=== PATIENT | male | born 1985 | race Caucasian/White ===

== ENCOUNTER 2017-02-02 13:54 | Emergency (ER) | payer MEDICARE, MEDICAID ==
[2017-02-02 14:43] VITALS: BP 133/84
--- NOTE | 2017-02-02 23:33 | ER ---
DATE SEEN: 02/02/2017 TIME SEEN: 1400 hours. CHIEF COMPLAINT: Chest pain. HISTORY OF PRESENT ILLNESS: This is a 31-year-old male with recurrent chest pain, has been seen in the ER multiple times for more than a year now. Pain is on the left side, moderate to severe. He had some shortness of breath and cough. REVIEW OF SYSTEMS: Complains of tremors, has problems sleeping. He feels like he is falling apart. No fever or chills. PAST MEDICAL HISTORY: Bipolar disorder, anxiety, depression, chronic chest pain. SOCIAL HISTORY: Does not smoke. PHYSICAL EXAMINATION: VITAL SIGNS: Blood pressure is normal. Temperature 97.5. GENERAL: He is not in any cardiopulmonary distress. ENT: Negative. Head normal size. CHEST: Clear. CARDIOVASCULAR: Normal. Neurologic: No focal findings. MENTAL STATUS: Lacks insight but normal intelligence and memory. No signs of dedrick or psychosis. Slightly anxious and tremulous. LABORATORY DATA: CBC, D-dimer, troponin normal. EKG negative. Chest x-ray was normal. IMPRESSION: Atypical chest pain. PLAN: Discharge home, reassurance, and advised to see Natasha Crawford at the [facility] on Saturday. Return to the ED with any worsening symptoms. /[id number] ALLISON/CHEN
--- NOTE | 2017-02-04 10:50 | CR ---
INDICATION: Chest pain. CHEST: PA and lateral views of the chest 02/02/2017, compared with 07/29/2016 and 05/26/2016, revealed no significant interval change - no definite active disease. The heart remains normal in size and shape. MTDD
== END 2017-02-02 15:03 | disposition home or self-care (01) ==
LOC: FB.ED 13:54
DX: R07.89 Other chest pain (principal); F41.9 Anxiety disorder, unspecified; F32.9 Major depressive disorder, single episode, unspecified
CPT/HCPCS: 36415; 71020; 80053; 84484; 85025; 85379; 93005; 99284; 99285

== ENCOUNTER 2017-02-07 23:33 | Emergency (ER) | payer MEDICARE, MEDICAID ==
[2017-02-07 23:45] VITALS: BP 121/77
--- NOTE | 2017-02-08 01:47 | ER ---
DATE SEEN: 02/07/2017 CHIEF COMPLAINT: "I am not feeling well." HISTORY OF PRESENT ILLNESS: This is a 31-year-old male with multiple complaints of vague, they include chest pain, difficulty breathing, tingling of the hand, symptoms have lasted two years. I saw him two days ago with the same symptoms. Nothing is new tonight. He has been unable to sleep. He was given Xanax yesterday, it does not seem to help. He is on prednisone, which has not helped. He has had multiple workup including x-rays, CAT scans, and even stress test. CURRENT MEDICATIONS: Please see the electronic record. REVIEW OF SYSTEMS: He complains of erectile dysfunction. He has no fever or chills. Denies any suicidal ideation. SOCIAL HISTORY: He is a smoker. Denies use of drugs. PHYSICAL EXAMINATION: GENERAL: He is nontoxic. He is afebrile. Normotensive. MENTAL STATUS: Very talkative. Elated mood. Lacks insight and judgment. Memory appears to be intact. Decreased fund of knowledge. No signs of psychosis or delusions. He appears somewhat manic. IMPRESSION: Bipolar disorder. PLAN: No treatment today, reassurance was attempted. The patient was unable to be reassured, he still believes that he has had heart attack, despite multiple workups. He was discharged home to follow up with his PCP. TIME SEEN: 2230 hours. /[id number] ALLISON/CHEN
== END 2017-02-08 | disposition home or self-care (01) ==
LOC: FB.ED 23:33
DX: F31.9 Bipolar disorder, unspecified (principal); Z87.891 Personal history of nicotine dependence
CPT/HCPCS: 99283; 99284

== ENCOUNTER 2017-02-14 05:53 | Emergency (ER) | payer MEDICARE, MEDICAID ==
--- NOTE | 2017-02-14 06:04 | EDM.PDOC ---
ED HISTORY OF PRESENT ILLNESS - General Chief Complaint: Cardiovascular Problem Stated Complaint: CHEST PAIN Time Seen by Provider: 02/14/17 05:53 Source: Reports: Patient, EMS History Limitations: Reports: No limitations - History of Present Illness INITIAL COMMENTS - FREE TEXT/NARRATIVE: Pt stated his puls is 140 when he is walking. He called 911 and requested to be transported to the ed. On arrival, pt was in his usual state of health. Vitals were nl. Pt was ambulating fine. He had no medical issues. Symptom Onset Date: 02/14/17 Symptom Onset Time: 05:30 Timing/Duration: Reports: Minutes: Severity: mild Improves with: Reports: None Worsens with: Reports: None Associated Symptoms: Reports: denies other symptoms - Related Data Allergies/ADRs: Allergies Allergy/AdvReac Type Severity Reaction Status Date / Time acetaminophen [From Lortab] Allergy Airway Verified 02/14/17 06:09 Tightness doxycycline Allergy Blisters Verified 02/14/17 06:09 hydrocodone bitartrate Allergy Difficulty Verified 02/14/17 06:09 [From Vicodin] Breathing Home Meds: Home Meds Divalproex Sodium [Depakote] 500 mg PO BID 02/02/17 [History] Fluticasone Furoate [Flonase Sensimist] 2 sprays IH DAILY 02/02/17 [History] Sulindac 200 mg PO BID 02/02/17 [History] Past Medical History - Past Health History Medical/Surgical History: Denies Medical/Surgical History HEENT History: Reports: Impaired vision Other HEENT History: wears glasses Cardiovascular History: Reports: Other (see below) Other Cardiovascular History: Episodes of feeling heart irregularities and chest tightness. Respiratory History: Reports: Other (see below) Other Respiratory History: black mold Gastrointestinal History: Reports: GERD Other Gastrointestinal History: acid reflux Neurological History: Reports: Concussion, Migraines Psychiatric History: Reports: Aggressive/hostile behaviors, Antisocial behaviors , Anxiety, Bipolar, Depression, Learning disability, Mood swings, Psych Hospitalization(s), Suicide attempt, Suicidal ideation, Other (see below) Other Psychiatric History: alcohol syndrome Endocrine/Metabolic History: Reports: Hypothyroidism Other Endocrine/Metabolic History: Pt stated he is borderline diabetic Dermatologic History: Reports: Psoriasis - Infectious Disease History Infectious Disease History: Reports: Chicken pox - Past Surgical History Other Cardiovascular Surgeries/Procedures: PT STATED HE UNDERGONE CARDIAC STENTING Social & Family History - Family History Family Medical History: Noncontributory Cardiac: Reports: Angina, Hypertension, [place] Other Cardiac Family History: Father at 42 due to heart related issues. aunts and uncles have a history of cardiac issues Respiratory: Reports: Other (see below) Other Respiratory Family Hisory: lung ca - Tobacco Use Smoking Status *Q: Current Every Day Smoker Years of Tobacco use: 2 Packs/Tins Daily: 0.5 Used Tobacco, but Quit: Yes Month Tobacco Last Used: April Second Hand Smoke Exposure: Yes - Caffeine Use Caffeine Use: Reports: Coffee - Alcohol Use Days Per Week of Alcohol Use: 1 Number of Drinks Per Day: 4 Total Drinks Per Week: 4 - Recreational Drug Use Recreational Drug Use: No Drug Use in Last 12 Months: Yes Recreational Drug Type: Reports: Marijuana/Hashish Recreational Drug Use Frequency: Weekly - Living Situation & Occupation Living situation: Reports: single ED ROS GENERAL - Review of Systems Review Of Systems: See Below Constitutional: Reports: no symptoms HEENT: Reports: No symptoms Respiratory: Reports: No Symptoms Cardiovascular: Reports: No symptoms Endocrine: Reports: no symptoms GI/Abdominal: Reports: No symptoms : Reports: no symptoms Musculoskeletal: Reports: no symptoms Skin: Reports: no symptoms Neurological: Reports: No Symptoms Psychiatric: Reports: No symptoms Hematologic/Lymphatic: Reports: no symptoms Immunologic: Reports: no symptoms ED EXAM, GENERAL - Physical Exam Exam: See Below Exam Limited By: No limitations General Appearance: alert, WD/WN, no apparent distress Eye Exam: bilateral eye: normal inspection Ears: normal external exam Ear Exam: bilateral ear: auricle normal Nose: normal inspection, normal mucosa, no blood Throat/Mouth: Normal inspection, Normal lips, Normal oropharynx, Normal voice Head: atraumatic, normocephalic Neck: normal inspection, supple, non-tender, full range of motion Respiratory/Chest: no respiratory distress, lungs clear, normal breath sounds, no accessory muscle use, chest non-tender Cardiovascular: normal peripheral pulses, regular rate, rhythm, no edema, no gallop, no JVD Peripheral Pulses: 2+: femoral (L), femoral (R) GI/Abdominal: normal bowel sounds, soft, non tender, no organomegaly, no distention, no abnormal bruit (Male) Exam: Deferred Rectal (Males) Exam: Deferred Back Exam: normal inspection, full range of motion Extremities: normal inspection, normal range of motion, non-tender, no pedal edema Neurological: alert, oriented, CN II-XII intact, normal cognition, normal gait Psychiatric: normal affect, normal mood Skin Exam: Warm Lymphatic: no adenopathy EKG INTERPRETATION EKG Date: 02/14/17 Time: 05:30 Rhythm: NSR Rate (beats/min): 86 [place]: normal P-wave: present QRS: normal ST-T: normal QT: normal Comparison: NA - no prior EKG Course - Vital Signs Text/Narrative:: Pt stated his puls is 140 when he is walking. He called 911 and requested to be transported to the ed. On arrival, pt was in his usual state of health. Vitals were nl. Pt was ambulating fine. He had no medical issues. PE: Nl PE ECG: NSR see note above Impression: Well exam Plan: Home with instruction Last Recorded V/S: Last Vital Signs Temp 36.3 C 02/14/17 06:04 Pulse 72 02/14/17 06:04 Resp 20 02/14/17 06:04 BP 160/105 H 02/14/17 06:04 Pulse Ox 100 02/14/17 06:04 - Orders/Labs/Meds Orders: Active Orders 24 hr Category Date Time Status EKG Documentation Completion [RC] ASDIRECTED Care 02/14/17 06:02 Active EKG 12 Lead [EK] Routine Ther 02/14/17 06:01 Ordered Departure - Departure Time of Disposition: 06:06 Disposition: Home, Self-Care 01 Condition: good Clinical Impression: Normal sinus rhythm Referrals: Natasha Crawford J[employer] COACH/JOB DEVELOPER [Primary Care Provider] - Forms: ED Department Discharge Additional Instructions: Please f/u with your Doctor - My Orders Last 24 Hours: My Active Orders 02/14/17 06:01 EKG 12 Lead [EK] Routine 02/14/17 06:02 EKG Documentation Completion [RC] ASDIRECTED - Assessment/Plan Last 24 Hours: My Active Orders 02/14/17 06:01 EKG 12 Lead [EK] Routine 02/14/17 06:02 EKG Documentation Completion [RC] ASDIRECTED
[2017-02-14 06:07] VITALS: BP 160/105
== END 2017-02-14 06:15 | disposition home or self-care (01) ==
LOC: FB.ED 05:53
DX: Z71.1 Person with feared health complaint in whom no diagnosis is made (principal); K21.9 Gastro-esophageal reflux disease without esophagitis; F41.9 Anxiety disorder, unspecified; F32.9 Major depressive disorder, single episode, unspecified; F17.210 Nicotine dependence, cigarettes, uncomplicated; E03.9 Hypothyroidism, unspecified; Z79.899 Other long term (current) drug therapy; Z88.6 Allergy status to analgesic agent; Z88.8 Allergy status to other drugs, medicaments and biological substances
CPT/HCPCS: 93005; 99283; 99285

== ENCOUNTER 2017-03-09 04:35 | Emergency (ER) | payer MEDICARE, MEDICAID ==
[2017-03-09 04:44] VITALS: BP 156/72
--- NOTE | 2017-03-09 05:04 | EDM.PDOC ---
ED HPI GENERAL MEDICAL PROBLEM - General Chief Complaint: General Stated Complaint: GENERAL Time Seen by Provider: 03/09/17 04:59 Source of Information: Reports: Patient History Limitations: Reports: No Limitations - History of Present Illness INITIAL COMMENTS - FREE TEXT/NARRATIVE: c/o red eye pt told RN that he woke up and his eye was red, no trauma, no itching however, then he said this chest has been hurting for a year he has been seen multiple times in ED for CP, referred to CV and pulmonary and not kept those appointments when I asked him why he was here he hit himself in the chest and said "it hurts right here" when I asked him about his eye several times, he changed the topic each time he has a h/o chronic anxiety and bipolar denies street drugs last saw PCP Pam 2w ago - Related Data Allergies Allergy/AdvReac Type Severity Reaction Status Date / Time acetaminophen [From Lortab] Allergy Airway Verified 02/14/17 06:09 Tightness doxycycline Allergy Blisters Verified 02/14/17 06:09 hydrocodone bitartrate Allergy Difficulty Verified 02/14/17 06:09 [From Vicodin] Breathing Home Meds: Home Meds Divalproex Sodium [Depakote] 500 mg PO BID 02/02/17 [History] Fluticasone Furoate [Flonase Sensimist] 2 sprays IH DAILY 02/02/17 [History] Sulindac 200 mg PO BID 02/02/17 [History] Past Medical History - Past Health History Medical/Surgical History: Denies Medical/Surgical History HEENT History: Reports: Impaired Vision Other HEENT History: wears glasses Cardiovascular History: Reports: Other (See Below) Other Cardiovascular History: Episodes of feeling heart irregularities and chest tightness. Respiratory History: Reports: Other (See Below) Other Respiratory History: black mold Gastrointestinal History: Reports: GERD Other Gastrointestinal History: acid reflux Neurological History: Reports: Concussion, Migraines Psychiatric History: Reports: Aggressive/Hostile Behaviors, Antisocial Behaviors , Anxiety, Bipolar, Depression, Learning Disability, Mood Swings, Psych Hospitalization(s), Suicide Attempt, Suicidal Ideation, Other (See Below) Other Psychiatric History: alcohol syndrome Endocrine/Metabolic History: Reports: Hypothyroidism Other Endocrine/Metabolic History: Pt stated he is borderline diabetic Dermatologic History: Reports: Psoriasis - Infectious Disease History Infectious Disease History: Reports: Chicken Pox - Past Surgical History Other Cardiovascular Surgeries/Procedures: PT STATED HE UNDERGONE CARDIAC STENTING Social & Family History - Family History Family Medical History: Noncontributory Cardiac: Reports: Angina, Hypertension, [place] Other Cardiac Family History: Father at 42 due to heart related issues. aunts and uncles have a history of cardiac issues Respiratory: Reports: Other (See Below) Other Respiratory Family Hisory: lung ca - Tobacco Use Smoking Status *Q: Current Every Day Smoker Years of Tobacco use: 2 Packs/Tins Daily: 0.5 Used Tobacco, but Quit: Yes Month Tobacco Last Used: April Second Hand Smoke Exposure: Yes - Caffeine Use Caffeine Use: Reports: Coffee - Alcohol Use Days Per Week of Alcohol Use: 1 Number of Drinks Per Day: 4 Total Drinks Per Week: 4 - Recreational Drug Use Recreational Drug Use: No Drug Use in Last 12 Months: Yes Recreational Drug Type: Reports: Marijuana/Hashish Recreational Drug Use Frequency: Weekly - Living Situation & Occupation Living situation: Reports: Single ED ROS GENERAL - Review of Systems Review Of Systems: See Below Constitutional: Reports: No Symptoms HEENT: Reports: Other (red eye) Respiratory: Reports: No Symptoms Cardiovascular: Reports: Chest Pain Endocrine: Reports: No Symptoms GI/Abdominal: Reports: No Symptoms : Reports: No Symptoms Musculoskeletal: Reports: No Symptoms Skin: Reports: No Symptoms Neurological: Reports: No Symptoms Psychiatric: Reports: No Symptoms Hematologic/Lymphatic: Reports: No Symptoms Immunologic: Reports: No Symptoms ED EXAM, GENERAL - Physical Exam Exam: See Below Exam Limited By: No Limitations General Appearance: Alert, WD/WN, No Apparent Distress Ears: Other (mild injection b/l, no exudate, no swell, symmetric) Nose: Other (30% swell b/l) Throat/Mouth: Normal Inspection Head: Atraumatic, Normocephalic Neck: Normal Inspection, Supple, Non-Tender, Full Range of Motion Respiratory/Chest: No Respiratory Distress, Lungs Clear, Normal Breath Sounds, Chest Non-Tender Cardiovascular: Regular Rate, Rhythm, No Edema, No Gallop, No JVD, No Murmur, No Rub Back Exam: Normal Inspection, Full Range of Motion, NT Extremities: Normal Inspection, Normal Range of Motion, No Pedal Edema Neurological: Alert, Oriented, CN II-XII Intact, Normal Cognition, No Motor/ Sensory Deficits Psychiatric: Anxious, Other (no flight of ideas, no delusions, no SI/HI) Skin Exam: Warm, Dry, Intact, Normal Color, No Rash Lymphatic: No Adenopathy Course - Vital Signs Last Recorded V/S: Last Vital Signs Temp 36.8 C 03/09/17 04:35 Pulse 84 03/09/17 04:35 Resp 20 03/09/17 04:35 BP 156/72 H 03/09/17 04:35 Pulse Ox - Orders/Labs/Meds Orders: Active Orders 24 hr Category Date Time Status EKG Documentation Completion [RC] ASDIRECTED Care 03/09/17 04:58 Ordered EKG 12 Lead [EK] Routine Ther 03/09/17 04:58 Ordered - Re-Assessments/Exams Free Text/Narrative Re-Assessment/Exam: 03/09/17 05:05 EKG obtained, wnl Departure - Departure Time of Disposition: 05:04 Disposition: Home, Self-Care 01 Preliminary Cause of *Q: Cardiac arrest Condition: good Clinical Impression: Anxiety - Discharge Information Instructions: Panic Attacks Forms: ED Department Discharge Additional Instructions: Continue your current meds. Eat 3 meals a day. Get regular rest. Get exercise daily. See your doctor in 2 days. - My Orders Last 24 Hours: My Active Orders 03/09/17 04:58 EKG Documentation Completion [RC] ASDIRECTED EKG 12 Lead [EK] Routine - Assessment/Plan Last 24 Hours: My Active Orders 03/09/17 04:58 EKG Documentation Completion [RC] ASDIRECTED EKG 12 Lead [EK] Routine
== END 2017-03-09 05:15 | disposition home or self-care (01) ==
LOC: FB.ED 04:35
DX: F41.9 Anxiety disorder, unspecified (principal); K21.9 Gastro-esophageal reflux disease without esophagitis; E03.9 Hypothyroidism, unspecified; G43.909 Migraine, unspecified, not intractable, without status migrainosus; L40.9 Psoriasis, unspecified; F17.210 Nicotine dependence, cigarettes, uncomplicated; Z88.8 Allergy status to other drugs, medicaments and biological substances; Z79.899 Other long term (current) drug therapy
CPT/HCPCS: 93005; 99282; 99284

== ENCOUNTER 2017-03-10 16:32 | Emergency (ER) | payer MEDICARE, MEDICAID ==
[2017-03-10 16:40] VITALS: BP 145/90
--- NOTE | 2017-03-10 16:58 | EDM.PDOC ---
ED HPI GENERAL MEDICAL PROBLEM - General Chief Complaint: General Stated Complaint: PAIN WEAKNESS Time Seen by Provider: 03/10/17 16:51 Source of Information: Reports: Patient History Limitations: Reports: No Limitations - History of Present Illness INITIAL COMMENTS - FREE TEXT/NARRATIVE: c/o general weakness, sleeping for 30 hours has usual c/o L sided CP, EKG was wnl yesterday, trop wnl x 2 has multiple c/o's, no specific c/o, came by EMS who tried to reassure him that his exam and vs were wnl left side of chest Pain Score (Numeric/FACES): 4 - Related Data Allergies Allergy/AdvReac Type Severity Reaction Status Date / Time acetaminophen [From Lortab] Allergy Airway Verified 03/10/17 16:33 Tightness doxycycline Allergy Blisters Verified 03/10/17 16:33 hydrocodone bitartrate Allergy Difficulty Verified 03/10/17 16:33 [From Vicodin] Breathing Home Meds: Home Meds Divalproex Sodium [Depakote] 500 mg PO BID 02/02/17 [History] Fluticasone Furoate [Flonase Sensimist] 2 sprays IH DAILY 02/02/17 [History] Sulindac 200 mg PO BID 02/02/17 [History] Past Medical History - Past Health History Medical/Surgical History: Denies Medical/Surgical History HEENT History: Reports: Impaired Vision Other HEENT History: wears glasses Cardiovascular History: Reports: Other (See Below) Other Cardiovascular History: Episodes of feeling heart irregularities and chest tightness. Respiratory History: Reports: Other (See Below) Other Respiratory History: black mold Gastrointestinal History: Reports: GERD Other Gastrointestinal History: acid reflux Neurological History: Reports: Concussion, Migraines Psychiatric History: Reports: Aggressive/Hostile Behaviors, Antisocial Behaviors , Anxiety, Bipolar, Depression, Learning Disability, Mood Swings, Psych Hospitalization(s), Suicide Attempt, Suicidal Ideation, Other (See Below) Other Psychiatric History: alcohol syndrome Endocrine/Metabolic History: Reports: Hypothyroidism Other Endocrine/Metabolic History: Pt stated he is borderline diabetic Dermatologic History: Reports: Psoriasis - Infectious Disease History Infectious Disease History: Reports: Chicken Pox - Past Surgical History Other Cardiovascular Surgeries/Procedures: PT STATED HE UNDERGONE CARDIAC STENTING Social & Family History - Family History Family Medical History: Noncontributory Cardiac: Reports: Angina, Hypertension, [place] Other Cardiac Family History: Father at 42 due to heart related issues. aunts and uncles have a history of cardiac issues Respiratory: Reports: Other (See Below) Other Respiratory Family Hisory: lung ca - Tobacco Use Smoking Status *Q: Never Smoker Years of Tobacco use: 2 Packs/Tins Daily: 0.5 Used Tobacco, but Quit: Yes Month Tobacco Last Used: April Second Hand Smoke Exposure: Yes - Caffeine Use Caffeine Use: Reports: None Caffeine Use Comment: Pt refused to answer questions - Alcohol Use Days Per Week of Alcohol Use: 1 Number of Drinks Per Day: 4 Total Drinks Per Week: 4 - Recreational Drug Use Recreational Drug Use: No Drug Use in Last 12 Months: Yes Recreational Drug Type: Reports: Marijuana/Hashish Recreational Drug Use Frequency: Weekly - Living Situation & Occupation Living situation: Reports: Single ED ROS GENERAL - Review of Systems Review Of Systems: See Below Constitutional: Reports: No Symptoms HEENT: Reports: No Symptoms Respiratory: Reports: No Symptoms Cardiovascular: Reports: No Symptoms Endocrine: Reports: No Symptoms GI/Abdominal: Reports: No Symptoms : Reports: No Symptoms Musculoskeletal: Reports: No Symptoms Skin: Reports: No Symptoms Neurological: Reports: No Symptoms Psychiatric: Reports: Anxiety Hematologic/Lymphatic: Reports: No Symptoms Immunologic: Reports: No Symptoms ED EXAM, GENERAL - Physical Exam Exam: See Below Exam Limited By: No Limitations General Appearance: Alert, WD/WN, No Apparent Distress Nose: Normal Inspection, Normal Mucosa, No Blood Throat/Mouth: Normal Inspection, Normal Lips, Normal Teeth, Normal Gums, Normal Oropharynx, Normal Voice, No Airway Compromise Head: Atraumatic, Normocephalic Neck: Normal Inspection, Supple, Non-Tender, Full Range of Motion Respiratory/Chest: No Respiratory Distress, Lungs Clear, Normal Breath Sounds, No Accessory Muscle Use, Chest Non-Tender Cardiovascular: Regular Rate, Rhythm, No Edema, No Gallop, No JVD, No Rub, Other (2/6 LAZARA at [facility]) GI/Abdominal: Normal Bowel Sounds, Soft, Non-Tender, No Distention Back Exam: Normal Inspection Extremities: Normal Inspection, Normal Range of Motion, Non-Tender, No Pedal Edema Neurological: Alert, Oriented, CN II-XII Intact, Normal Cognition, No Motor/ Sensory Deficits Psychiatric: Normal Affect, Normal Mood Skin Exam: Warm, Dry, Intact, Normal Color, No Rash Course - Vital Signs Last Recorded V/S: Last Vital Signs Temp 36.4 C 03/10/17 16:32 Pulse 73 03/10/17 16:32 Resp 16 03/10/17 16:32 BP 145/90 H 03/10/17 16:32 Pulse Ox 100 03/10/17 16:32 - Re-Assessments/Exams Free Text/Narrative Re-Assessment/Exam: 03/10/17 16:56 pt informed that his vital signs and exam was normal, he was advised to f/u with his PCP, he asked us "to fix what was wrong with him", he perseverates on being ill, he could not be reassured on any of his numerous c/o's, he left before receiving his d/c instructions Departure - Departure Time of Disposition: 16:51 Disposition: Home, Self-Care 01 Condition: good Clinical Impression: Chronic anxiety - Discharge Information Forms: ED Department Discharge Additional Instructions: No active medical issues identified by hx or PE. Pt left without his instructions. He was told several times to see his PCP. EMS is working on a plan to not transport him if he has normal vitals and normal PE.
== END 2017-03-10 16:50 | disposition home or self-care (01) ==
LOC: EEVIPCON 16:32 → FB.ED 16:32
DX: F41.8 Other specified anxiety disorders (principal); R07.89 Other chest pain; R53.1 Weakness; K21.9 Gastro-esophageal reflux disease without esophagitis; Z86.69 Personal history of other diseases of the nervous system and sense organs; Z72.811 Adult antisocial behavior; R46.89 Other symptoms and signs involving appearance and behavior; F12.980 Cannabis use, unspecified with anxiety disorder; F31.9 Bipolar disorder, unspecified; F81.9 Developmental disorder of scholastic skills, unspecified; Z91.5 Personal history of self-harm; Q86.0 Fetal alcohol syndrome (dysmorphic); E03.9 Hypothyroidism, unspecified; Z79.899 Other long term (current) drug therapy; Z88.6 Allergy status to analgesic agent; Z88.5 Allergy status to narcotic agent; Z88.8 Allergy status to other drugs, medicaments and biological substances; Z87.891 Personal history of nicotine dependence
CPT/HCPCS: 99282; 99285

== ENCOUNTER 2017-03-18 05:04 | Emergency (ER) | payer MEDICARE, MEDICAID ==
[2017-03-18 05:37] VITALS: BP 133/79
--- NOTE | 2017-03-18 08:25 | EDM.PDOC ---
ED HPI GENERAL MEDICAL PROBLEM - General Chief Complaint: Behavioral/Psych Stated Complaint: anxiety Left Chest Pain Score (Numeric/FACES): 3 - Related Data Allergies Allergy/AdvReac Type Severity Reaction Status Date / Time acetaminophen [From Lortab] Allergy Airway Verified 03/18/17 05:24 Tightness doxycycline Allergy Blisters Verified 03/18/17 05:24 hydrocodone bitartrate Allergy Difficulty Verified 03/18/17 05:24 [From Vicodin] Breathing Home Meds: Home Meds Fluticasone Furoate [Flonase Sensimist] 2 sprays IH DAILY 02/02/17 [History] Sulindac 200 mg PO BID 02/02/17 [History] Past Medical History - Past Health History Medical/Surgical History: Denies Medical/Surgical History HEENT History: Reports: Impaired Vision Other HEENT History: wears glasses Cardiovascular History: Reports: Other (See Below) Other Cardiovascular History: Episodes of feeling heart irregularities and chest tightness. Respiratory History: Reports: Other (See Below) Other Respiratory History: black mold Gastrointestinal History: Reports: GERD Other Gastrointestinal History: acid reflux Neurological History: Reports: Concussion, Migraines Psychiatric History: Reports: Aggressive/Hostile Behaviors, Antisocial Behaviors , Anxiety, Bipolar, Depression, Learning Disability, Mood Swings, Psych Hospitalization(s), Suicide Attempt, Suicidal Ideation, Other (See Below) Other Psychiatric History: alcohol syndrome Endocrine/Metabolic History: Reports: Hypothyroidism Other Endocrine/Metabolic History: Pt stated he is borderline diabetic Dermatologic History: Reports: Psoriasis - Infectious Disease History Infectious Disease History: Reports: Chicken Pox - Past Surgical History Other Cardiovascular Surgeries/Procedures: PT STATED HE UNDERGONE CARDIAC STENTING Social & Family History - Family History Family Medical History: Noncontributory Cardiac: Reports: Angina, Hypertension, [place] Other Cardiac Family History: Father at 42 due to heart related issues. aunts and uncles have a history of cardiac issues Respiratory: Reports: Other (See Below) Other Respiratory Family Hisory: lung ca - Tobacco Use Smoking Status *Q: Never Smoker Years of Tobacco use: 2 Packs/Tins Daily: 0.5 Used Tobacco, but Quit: Yes Month Tobacco Last Used: April Second Hand Smoke Exposure: Yes - Caffeine Use Caffeine Use: Reports: None Caffeine Use Comment: Pt refused to answer questions - Alcohol Use Days Per Week of Alcohol Use: 1 Number of Drinks Per Day: 4 Total Drinks Per Week: 4 - Recreational Drug Use Recreational Drug Use: No Drug Use in Last 12 Months: Yes Recreational Drug Type: Reports: Marijuana/Hashish Recreational Drug Use Frequency: Weekly - Living Situation & Occupation Living situation: Reports: Single COURSE, BEHAVIORAL HEALTH COMP - Course Vital Signs: Last Vital Signs Temp 36.4 C 03/18/17 05:26 Pulse 69 03/18/17 05:26 Resp 18 03/18/17 05:26 BP 133/79 03/18/17 05:26 Pulse Ox 100 03/18/17 05:26 Pt was not seen by me. He left after the screening examination. Departure - Departure Disposition: Left Without Being Seen 07 - Discharge Information Referrals: Natasha Crawford PET GROOMER [Primary Care Provider] - Forms: ED Department Discharge
== END 2017-03-18 05:33 | disposition left against medical advice (07) ==
LOC: FB.ED 05:04
DX: Z53.21 Procedure and treatment not carried out due to patient leaving prior to being seen by health care provider (principal)
CPT/HCPCS: 99283

== ENCOUNTER 2017-03-19 23:09 | Emergency (ER) | payer MEDICARE, MEDICAID ==
[2017-03-19 23:19] VITALS: BP 147/86
--- NOTE | 2017-03-20 01:44 | ER ---
DATE SEEN: 03/19/2017 CHIEF COMPLAINT: Chest pain. HISTORY OF PRESENT ILLNESS: This is a 31-year-old male with left-sided chest pain, sharp, comes and goes, with no radiation. It has been going on for at least a year. I have seen him before for this reason. There is no shortness of breath. He is convinced that he has a coronary artery disease. He is wearing a Holter monitor because of palpitations. REVIEW OF SYSTEMS: No fever or chills. Has depression. Denies hearing any voices. No cough. No suicidal ideation. MEDICATIONS: Reviewed. PHYSICAL EXAMINATION: GENERAL: Well nourished, hydrated. VITAL SIGNS: Blood pressure 147/86, temperature 97.6. EARS, NOSE, AND THROAT: Negative. NECK: No thyromegaly. CHEST: Clear. CARDIOVASCULAR: Normal. MENTAL STATUS: Alert. LABORATORY DATA: None. IMAGING: EKG, normal sinus rhythm. IMPRESSION: Nonspecific chest pain. PLAN: Reassurance. FOLLOWUP: Follow up with PCP next week. TIME SEEN: 2330 hours. /[id number] ALLISON/CHEN
== END 2017-03-19 23:35 | disposition home or self-care (01) ==
LOC: FB.ED 23:09
DX: R07.9 Chest pain, unspecified (principal); I25.10 Atherosclerotic heart disease of native coronary artery without angina pectoris; F32.9 Major depressive disorder, single episode, unspecified
CPT/HCPCS: 93005; 99282; 99284

== ENCOUNTER 2017-06-21 20:36 | Emergency (ER) | payer MEDICARE, MEDICAID ==
[2017-06-22 08:24] VITALS: BP 129/75
--- NOTE | 2017-06-23 05:14 | ER ---
DATE SEEN: 06/21/2017 CHIEF COMPLAINT: "I felt shaky and sick. I wonder if I've got chronic obstructive lung disease. I can't breathe. I have been coughing. Symptoms have been present for the last 7 days. I feel slightly dizzy and feel dry in the mouth. Sometimes I feel like I can't get O2." Chief complaint is dizziness. REVIEW OF SYSTEMS: Extensive. He has 45+ diagnoses on his problem sheet. He has many and I would not iterate this. This has been extensively done in the past. Most significant of these are cervicogenic headaches, cervicalgia, bipolar disorder, suicidal ideation in the past with depression and bipolar I disorder manic depressive, bradycardia and a fixation that he has serious heart disease. His parents did with early heart disease. MEDICATIONS: None presently. He is not taking his antidepressants. ALLERGIES: Acetaminophen from Lortab, doxycycline, and hydrocodone (difficulty breathing, shortness of breath with the narcotics and acetaminophen). PHYSICAL EXAMINATION: CONSTITUTIONAL: Alert, happy. He shook my hand and said "so glad to see me." HEENT: PERRLA intact. Pharynx without abnormality. NECK: No thyromegaly or masses. No cervical adenopathy. LUNGS: Clear to auscultation. No rales, rhonchi, or wheezes. HEART: S1 and S2. No murmur. He has slightly decreased heart rate in the 60s. No irregularity noted. ABDOMEN: Soft. No guarding. No abdominal discomfort. DIAGNOSTIC DATA: Quick look ultrasound of his lungs demonstrates normal slide sign, also suggest hypodynamic myocardial contractile activity (I did not discern that he has a thickened myocardium). The patient right away wanted to know if there was anything serious to his heart or other abnormalities. I said I was not an ultrasonography tech. It will require more sophisticated echocardiographic studies, but it appeared that he had a hypocontractile heart as opposed to a normal hyperdynamic heart. The right ventricle seemed slightly enlarged in terms of volume. DIAGNOSES: 1. Somatoform disorder. 2. Personality disorder. PLAN: 1. Follow up with echo on this week. 2. Reassured the patient. 3. No medication given to the patient. 4. Patient was grateful for the discussion on concern and interaction. 5. I think he is lonely and often comes to the ED to find solace and also companionship. 6. He has multiple other psychosocial issues and he is bipolar manic- depressive, and at one time used to jog every day 8 miles but has not done this for a year because he is concerned about his heart. 7. Follow up with a doctor in a week. /[id number] ALBERT/CHEN PAIGE
== END 2017-06-21 21:55 | disposition home or self-care (01) ==
LOC: FB.ED 20:36
DX: F45.9 Somatoform disorder, unspecified (principal); F60.9 Personality disorder, unspecified; F31.9 Bipolar disorder, unspecified; J44.9 Chronic obstructive pulmonary disease, unspecified; Z88.1 Allergy status to other antibiotic agents; Z88.5 Allergy status to narcotic agent
CPT/HCPCS: 99284

== ENCOUNTER 2017-07-03 04:07 | Emergency (ER) | payer MEDICARE, MEDICAID ==
[2017-07-03 04:48] VITALS: BP 135/76
--- NOTE | 2017-07-03 09:39 | ER ---
ADMISSION DATE: 07/03/2017 CHIEF COMPLAINT: Shoulder pain. HISTORY OF PRESENT ILLNESS: This is a 32-year-old male complaining of pain in the left shoulder, behind shoulder blade. This has been going on for several weeks. In addition, he has fatigue on exertion and difficulty breathing. He believes that he is having a heart attack. This is his usual presentation over the last 2 years. REVIEW OF SYSTEMS: No fever or chills. He complains of losing weight, erectile dysfunction, and sleep disturbance. Denies suicidal or homicidal ideation. MEDICATIONS: Reviewed. ALLERGIES: Reviewed. PHYSICAL EXAMINATION: GENERAL: He is not in any cardiopulmonary distress. VITAL SIGNS: He has a normal blood pressure and temp of 97.4. EAR, NOSE, AND THROAT: Negative. MUSCULOSKELETAL: No tenderness to palpation of the shoulder, has full range of motion. CHEST: Clear. CARDIOVASCULAR: Normal rate and rhythm. MENTAL STATUS: Very talkative, lacks insight, but memory seems to be intact. No signs of dedrick or psychosis. IMAGING DATA: EKG, normal sinus rhythm. IMPRESSION: 1. Shoulder pain. 2. Bipolar disorder. 3. Psychosomatic syndrome. PLAN: I reassured him or attempted to, he wanted some lab work and cardiac enzymes, which I declined. I have discussed that he needs to follow up with his PCP tomorrow morning for further followup. /[id number] ALLISON/CHEN PAIGE
== END 2017-07-03 04:57 | disposition home or self-care (01) ==
LOC: FB.ED 04:07
DX: M25.512 Pain in left shoulder (principal); F31.9 Bipolar disorder, unspecified; F45.9 Somatoform disorder, unspecified
CPT/HCPCS: 93005; 99283

== ENCOUNTER 2017-07-15 21:54 | Emergency (ER) | payer MEDICARE, MEDICAID ==
[2017-07-15] MEDS ORDERED: Albuterol/Ipratropium 3.0-0.5 MG/3 ML Neb Soln NEB ONE (21:59)
[2017-07-15 22:23] VITALS: BP 104/60
--- NOTE | 2017-07-15 22:39 | EDM.PDOC ---
ED HPI GENERAL MEDICAL PROBLEM - General Chief Complaint: Respiratory Problem Stated Complaint: TROUBLE BREATHING Time Seen by Provider: 07/15/17 22:21 Source of Information: Reports: Patient History Limitations: Reports: No Limitations - History of Present Illness INITIAL COMMENTS - FREE TEXT/NARRATIVE: 32 y.o.w.m came to the ed because occ cough. Pt has frequent visits in the ed. Ptr denies any other acute medical issues Onset: Unknown/Unsure Onset Date: 07/13/17 Onset Time: 10:00 Duration: Day(s): Location: Reports: Chest Quality: Reports: Other (cough) Severity: Mild Improves with: Reports: Rest Worsens with: Reports: Cold Therapy Context: Reports: Activity Associated Symptoms: Reports: No Other Symptoms - Related Data Allergies Allergy/AdvReac Type Severity Reaction Status Date / Time acetaminophen [From Lortab] Allergy Airway Verified 07/15/17 22:35 Tightness doxycycline Allergy Blisters Verified 07/15/17 22:35 hydrocodone bitartrate Allergy Difficulty Verified 07/15/17 22:35 [From Vicodin] Breathing Home Meds: Home Meds Prednisone [IJD: Prednisone] 10 mg PO DAILY #2 tab 07/15/17 [Rx] Past Medical History - Past Health History Medical/Surgical History: Denies Medical/Surgical History HEENT History: Reports: Impaired Vision, Other (See Below) Other HEENT History: Wears glasses. Cardiovascular History: Reports: Hypertension, Other (See Below) Other Cardiovascular History: Episodes of feeling heart irregularities and chest tightness. Respiratory History: Reports: Other (See Below) Other Respiratory History: Patient states he has been exposed to "Black Mold". Gastrointestinal History: Reports: GERD Other Gastrointestinal History: Acid reflux. Neurological History: Reports: Concussion, Migraines Psychiatric History: Reports: Aggressive/Hostile Behaviors, Antisocial Behaviors , Anxiety, Bipolar, Depression, Learning Disability, Mood Swings, Psych Hospitalization(s), Suicide Attempt, Suicidal Ideation, Other (See Below) Other Psychiatric History: alcohol syndrome. Endocrine/Metabolic History: Reports: Hypothyroidism Other Endocrine/Metabolic History: Patient states he is borderline diabetic. Dermatologic History: Reports: Psoriasis - Infectious Disease History Infectious Disease History: Reports: Chicken Pox - Past Surgical History Other Cardiovascular Surgeries/Procedures: Patient states he had cardiac stents placed. Social & Family History - Family History Family Medical History: Noncontributory Cardiac: Reports: Angina, Hypertension, [place] Other Cardiac Family History: Father at 42 due to heart related issues. Aunts and uncles have a history of cardiac issues. Respiratory: Reports: Other (See Below) Other Respiratory Family Hisory: Lung CA. - Tobacco Use Smoking Status *Q: Never Smoker Years of Tobacco use: 10 Packs/Tins Daily: 0.3 Used Tobacco, but Quit: No Month Tobacco Last Used: April Second Hand Smoke Exposure: Yes - Caffeine Use Caffeine Use: Reports: None Caffeine Use Comment: Pt refused to answer questions - Alcohol Use Days Per Week of Alcohol Use: 1 Number of Drinks Per Day: 4 Total Drinks Per Week: 4 - Recreational Drug Use Recreational Drug Use: No Drug Use in Last 12 Months: Yes Recreational Drug Type: Reports: Marijuana/Hashish Other Recreational Drug Type: States "everyone" in this town smokes pot. Recreational Drug Use Frequency: Weekly - Living Situation & Occupation Living situation: Reports: Single ED ROS GENERAL - Review of Systems Review Of Systems: See Below Constitutional: Reports: No Symptoms HEENT: Reports: No Symptoms Respiratory: Reports: Cough Cardiovascular: Reports: No Symptoms Endocrine: Reports: No Symptoms GI/Abdominal: Reports: No Symptoms : Reports: No Symptoms Musculoskeletal: Reports: No Symptoms Skin: Reports: No Symptoms Neurological: Reports: No Symptoms Psychiatric: Reports: No Symptoms Hematologic/Lymphatic: Reports: No Symptoms Immunologic: Reports: No Symptoms ED EXAM, GENERAL - Physical Exam Exam: See Below Exam Limited By: No Limitations General Appearance: Alert, WD/WN, No Apparent Distress Eye Exam: Bilateral Eye: Normal Inspection Ears: Normal External Exam Ear Exam: Bilateral Ear: Auricle Normal Nose: Normal Inspection, Normal Mucosa Throat/Mouth: Normal Inspection, Normal Lips Head: Atraumatic, Normocephalic Neck: Normal Inspection, Supple, Non-Tender, Full Range of Motion Respiratory/Chest: Rhonchi, Wheezing (minor) Cardiovascular: Normal Peripheral Pulses, Regular Rate, Rhythm GI/Abdominal: Normal Bowel Sounds, Soft (Male) Exam: Deferred Rectal (Males) Exam: Deferred Back Exam: Normal Inspection, Full Range of Motion Extremities: Normal Inspection, Normal Range of Motion Neurological: Alert, Oriented, CN II-XII Intact, Normal Cognition, Normal Gait Psychiatric: Normal Affect, Normal Mood Skin Exam: Warm, Dry, Intact, Normal Color, No Rash Lymphatic: No Adenopathy Course - Vital Signs Text/Narrative:: 32 y.o.w.m came to the ed because occ cough. Pt has frequent visits in the ed. Ptr denies any other acute medical issues PE: Minor wheezes, rhonchi Impression: asthma, bronchitis Tx: Duoneb Reexam: improved Plan: D/C with instructions Last Recorded V/S: Last Vital Signs Temp 36.6 C 07/15/17 22:21 Pulse 80 07/15/17 22:21 Resp 20 07/15/17 22:21 BP 104/60 07/15/17 22:21 Pulse Ox 100 07/15/17 22:21 - Orders/Labs/Meds Orders: Active Orders 24 hr Category Date Time Status RT Aerosol Therapy [RC] ASDIRECTED Care 07/15/17 22:00 Active Meds: Medications Discontinued Medications Generic Name Dose Route Start Last Admin Trade Name Freq PRN Reason Stop Dose Admin Albuterol/Ipratropium 3 ml 07/15/17 21:59 07/15/17 22:16 Duoneb 3.0-0.5 Mg/3 Ml NEB 07/15/17 22:00 3 ml ONETIME ONE Administration Departure - Departure Time of Disposition: 22:39 Disposition: Home, Self-Care 01 Condition: Good Clinical Impression: Bronchitis - Discharge Information Prescriptions: Prednisone [IJD: Prednisone] 10 mg PO DAILY #2 tab Sulfamethoxazole/Trimethoprim [Bactrim Ds Tablet] 1 each PO BID #20 tablet Referrals: Natasha Crawford, [employer] [Primary Care Provider] - Forms: ED Department Discharge Additional Instructions: Please take the meds as recommended, please f/u, come back if your symptoms get worse acutely - My Orders Last 24 Hours: My Active Orders 07/15/17 22:00 RT Aerosol Therapy [RC] ASDIRECTED - Assessment/Plan Last 24 Hours: My Active Orders 07/15/17 22:00 RT Aerosol Therapy [RC] ASDIRECTED
== END 2017-07-15 22:45 | disposition home or self-care (01) ==
LOC: FB.ED 21:54
DX: J45.909 Unspecified asthma, uncomplicated (principal); I10 Essential (primary) hypertension; K21.9 Gastro-esophageal reflux disease without esophagitis; G43.909 Migraine, unspecified, not intractable, without status migrainosus; E03.9 Hypothyroidism, unspecified; Z88.8 Allergy status to other drugs, medicaments and biological substances; Z79.899 Other long term (current) drug therapy
CPT/HCPCS: 94640; 99285; J7620; 99283

== ENCOUNTER 2017-08-02 00:38 | Emergency (ER) | payer MEDICARE, MEDICAID ==
[2017-08-02] MEDS ORDERED: Potassium Chloride 20 MEQ Tab.ER PO ONE (01:55)
[2017-08-02 02:20] VITALS: BP 126/66
--- NOTE | 2017-08-05 08:53 | ER ---
DATE SEEN: 08/02/2017 CHIEF COMPLAINT: "I feel like crap." HISTORY OF PRESENT ILLNESS: This is a 32-year-old male who has a history of psychiatric disorder, bipolar, depression. He came in because for the last few weeks he has felt tired and weak, has had chest pain, difficulty breathing, not able to sleep well. These are chronic symptoms that have not improved over the last few months. He tells me that he is due for open-heart surgery on 08/23/2017. His pain does not seem to radiate anywhere. He requests some labs today. REVIEW OF SYSTEMS: He complains of erectile dysfunction, insomnia, fatigue. No recent fever or chills. PAST MEDICAL HISTORY: Please see the electronic record. ALLERGIES: Please see the electronic record. PHYSICAL EXAMINATION: GENERAL: He is not in distress. He is afebrile and normotensive. ENT: Negative. CHEST: Clear. CARDIOVASCULAR: Normal. MENTAL STATUS: Very talkative. Suicidal ideation and thoughts and plan were convincingly denied. PERTINENT LABORATORY DATA: Potassium was 3.2. The rest of his labs including a troponin, CMP, and EKG were normal. IMPRESSION: 1. Depression. 2. Bipolar disorder. 3. Atypical chest pain. 4. Hypokalemia. PLAN: I gave him 20 mEq of potassium chloride orally once. I discharged him home. Reassured him. Asked him to return with any worsening symptoms. Time seen was 0130 hours. /[id number] ALLISON/CHEN
== END 2017-08-02 02:05 | disposition home or self-care (01) ==
LOC: FB.ED 00:38
DX: F31.9 Bipolar disorder, unspecified (principal); R07.89 Other chest pain; E87.6 Hypokalemia
CPT/HCPCS: 36415; 80053; 84484; 85025; 93005; 99284; A9270

== ENCOUNTER 2017-08-02 23:45 | Emergency (ER) | payer MEDICARE, MEDICAID ==
[2017-08-03 01:23] VITALS: BP 147/84
[2017-08-03] MEDS ORDERED: Potassium Chloride 10% 20 MEQ/15 ML Soln 15 ML UD Cup PO ONE (02:05)
--- NOTE | 2017-08-05 14:42 | ER ---
DATE SEEN: 08/02/2017 HISTORY OF PRESENT ILLNESS: "They finally found there was swelling of the heart, did an echo and they found aortic regurgitation. I was feeling on and off numbness to the left side of the face and left upper arm. He had atrial fibrillation in the past. "Am I supposed to sit and stare into huy or just not move around? When I get to move around and take a shower, I get lightheaded and short of breath." Aortic surgery was planned on August 23. "Sometimes I feel like I am going to check out." Chest pain is on and off. "My labs essentially were done yesterday, and they were normal." "Troponin was negative." I have lost many things in my life, "I can't have sex because I get too short of breath. I can't walk very far because of shortness of breath. I am having swelling in my ankles but can't exercise like I used to. My emotional health is suffering." I get in and out of the shower because I feel lightheaded and difficulty sleeping. At night, "I wake up with chest pain in the middle of the night because I am worried about my heart, and I know my heart was down to 38 beats per minute. I feel like I am being trapped in a body that is going to break me...feel like I can't get out of it." Says, "what am I going to do if my heart is just going to , am I going to ?" Johny has a multitude of other problems: These are migraines with and without aura, bipolar disorder, noncompliance, cervical occipital neuralgia, cervicogenic headaches, dental abscesses, atypical angina, left shoulder sprain, depression, palpitation, anxiety disorder, hyperkalemia, depression with suicidal ideation, constipation, fractured teeth, neck muscle spasms, chronic anxiety. ALLERGIES: Acetaminophen, doxycycline, hydrocodone. CURRENT MEDICATION: Aspirin 81 mg two tablets a day. He apparently had been seen by a information officer, Dr. Gilliam, who noted after an echo, he needs an aortic valve replacement. REVIEW OF SYSTEMS: See in the HPI above. PHYSICAL EXAM: GENERAL: The patient is still alert, happy, talkative. HEENT: PERRLA intact. Pharynx without abnormality. Gag in place. Uvula midline. No bruits in the neck. LUNGS: Clear without rales, rhonchi, or wheezes. HEART: S1, S2. I do not hear a murmur. Do not hear any regular rate. There is occasional irregular beat, but infrequent, which I surmise as sinus rhythm. EKG: Pending. CHEST: Wall nontender to palpation. ABDOMEN: Soft. Bowel sounds normal. He has lost tremendous number of pounds over the years and at one point in time was a runner. He has residual gynecomastia. No CVA percussion tenderness. EXTREMITIES: Legs, vascular structures nontender. No pedal edema. Deep tendon reflexes hypoactive in upper and lower extremities. Cranial nerves 2 through 12 intact. Oriented x3. Gait appropriate. I did not test his shortness of breath as he was walking. He did walk into the hospital. DIAGNOSTIC DATA: EKG: Sinus rhythm. Abnormal inferior Q waves. He has ST depression in lead III and trace in lead aVF, it is minimal. No evidence for ST elevation. Computer results: Sinus rhythm, abnormal inferior Q waves, probably anterolateral Q waves, probably normal for his age. ASSESSMENT: 1. Aortic insufficiency. 2. Cardiac pain. 3. Anxiety disorder. PLAN: Chest x-ray. Laboratory work pending. Further dictation to follow. /[id number] LS/MODL ADDENDUM: DIAGNOSTIC REPORTS: Chest x-ray was ordered, but I do not see any report. I do not see any chest x-ray. EKG was performed. LABORATORY STUDIES: The patient had a normal CBC with a hemoglobin slightly elevated at 16. Platelets were normal at 259,000, white count 7400, PMNs 51, lymphocytes 36, monos 7, 5% eos. INR 1.01 and complete metabolic panel was normal, except for alkaline phosphatase a little low at 30. Troponin less than 0.01, and urinalysis is negative. 1+ urobilinogen, few bacteria. Urine tox is negative. ASSESSMENT: 1. Quick-look ultrasound demonstrated a marked amount of calcium where the aortic valve is. This is perhaps what the information officer saw on the designated ultrasound. He currently has significant aortic insufficiency and aortic valve replacement and/or surgery is planned for Johny, August 23. 2. He does have myocardial issues, probably his pain is in his myocardium, but there is no clear evidence for myocardial infarction. 3. He has conversion disorder and multiple complaints and a very big need to blame other people for his health. 4. Abnormal Q-waves inferiorly, possibly reflecting myocardial injury. Also ST depression in leads III and aVF. It is minimal, but may reflect some mild ischemia. The computer read out the "abnormal Q-waves, probably anterolateral Q-waves, probably normal for his age." PLAN: No further intervention at this point. Initially, it was thought that potassium is low, but that was from yesterday's potassium. Today's potassium is normal. Consequently, the patient will not need further potassium supplement. Follow up with doctor in a week if any problems, otherwise in 1-2 weeks. Most important social event for Johny is encouraging him to carry on as best he can in spite of his social circumstances. He is appreciative of seeing him. /[id number] ALBERT/CHEN
== END 2017-08-03 02:15 | disposition home or self-care (01) ==
LOC: FB.ED 23:45
DX: I35.1 Nonrheumatic aortic (valve) insufficiency (principal); F41.9 Anxiety disorder, unspecified; Z88.1 Allergy status to other antibiotic agents; Z88.6 Allergy status to analgesic agent; F31.9 Bipolar disorder, unspecified; R07.89 Other chest pain; E87.6 Hypokalemia
CPT/HCPCS: 36415; 80053; 80305; 81001; 82150; 83605; 84443; 84484; 85025; 85610; 93005; 99283; 99284; A9270; 93010; 99285

== ENCOUNTER 2017-08-03 20:46 | Emergency (ER) | payer MEDICARE, MEDICAID ==
[2017-08-03 20:58] VITALS: BP 131/84
--- NOTE | 2017-08-04 00:47 | ER ---
DATE SEEN: 08/03/2017 CHIEF COMPLAINT: Chest pain. HISTORY OF PRESENT ILLNESS: This is a 32-year-old male here for the 3rd night in a row complaining of chest pain. The pain has been going on for several years. He states that he can no longer continue to live like this. He is talkative and has pressured speech unable to give a clear delineation of his symptoms. SOCIAL HISTORY: He lives alone. MEDICATIONS: Please see the nurse's notes. PHYSICAL EXAMINATION: GENERAL: He is not in any cardiopulmonary distress. VITAL SIGNS: His blood pressure is normal, pulse is 83, and temp 97.7. MENTAL STATUS: In general, he appears unkempt, restless, and unfocused. He did not exhibit signs or tendencies of suicide or homicide in the exam room; however, he is delusional and believes that he is going to from a heart attack. He demanded to obtain an EKG and lab work. IMPRESSION: Atypical chest pain. PLAN: I attempted reassurance because the patient was here 2 days ago and CBC, EKG was normal. He was also yesterday with similar symptoms and findings, but the patient would not hear none of it and he was upset calling me "a fucking seth." TIME SEEN: 2100 hours. /[id number] ALLISON/CHEN
== END 2017-08-03 20:56 | disposition home or self-care (01) ==
LOC: FB.ED 20:46
DX: R07.89 Other chest pain (principal)
CPT/HCPCS: 99284

== ENCOUNTER 2017-08-04 15:05 | Emergency (ER) | payer MEDICARE, MEDICAID ==
[2017-08-04] MEDS ORDERED: Sodium Chloride 0.9% 1,000 ML IV SCH (20:00)
[2017-08-04] MEDS ORDERED: Acetaminophen 500 MG Tab PO ONE (22:37)
[2017-08-05 08:07] VITALS: BP 96/63
--- NOTE | 2017-08-06 12:24 | ER ---
DATE SEEN: 08/04/2017 TIME SEEN: 1545 hours. HISTORY OF PRESENT ILLNESS: This 32-year-old man is concerned about chest pain. He has chronic pain all the time, mostly chest pain, when he gets up and walks around. He gets tired when he does anything. He feels like he is going to . He is very concerned that he is going to today. He told me yesterday that he was going to have cardiac surgery on 08/23/2017. On review of his chart, including the notes from [facility] and [facility], he is not going to have cardiac surgery, but he is going to be seen by a housekeeping worker on at the clinic. He has had bouts of bradycardia and also tachycardia in the past up to 160s, and heart rate down in the 50s and 30s. He has never been diagnosed with sick sinus syndrome. He is deathly afraid that he is going to and notes family history, most of them at very close to his age that he is. He has lost extensive weight, 5 pounds in the last 2 weeks and 18 pounds in the last 2 months. At one time, Johny was quite a sport enthusiast, would run up to 8 to 9 miles a day (and/or he may be exaggerating this, but I believe him). He is a nonsmoker. He does not drink alcohol. He does not do drugs, though I think at one time he did for a part of his life. Johny also is a very verbal fellow and states on many occasions that he would probably of heart disease and be sure to angely those people that did not pay attention to him, for he is certain he is going to . He feels so miserable now that he feels the same. He has never been diagnosed as a conversion reaction, but he has been diagnosed with bipolar; migraines; atypical angina; suicidal ideation; hypokalemia; cervicogenic migraines; intractable migraines; anxiety, acute and chronic. ALLERGIES: Acetaminophen, doxycycline, and hydrocodone. REVIEW OF SYSTEMS: Negative, except for his symptoms. Psychiatric history; he is very anxious, worried that he is going to and is quite certain, in fact, he is almost in tears as he talks about "no one listens to me and I keep getting up and I have difficulty walking around, I feel short of breath, and I think I have aortic valvular disease." Yesterday, we had a quick look at his aorta. Apparently, there is more calcium in the aorta, and it appears it is very possible he has this. It was not an official ultrasonography echo of his heart. MEDICATIONS: None. At one time, he was on many medicines. He is no longer on medicines. He takes a baby aspirin a day. PHYSICAL EXAMINATION: VITAL SIGNS: Blood pressure 148/70, heart rate 70, respirations 16, 98% oxygen saturation on room air, and temperature 37.0 degrees centigrade. GENERAL: Alert, somewhat happy and enthusiastic, but also a derogatory man with a heinie, who has lost weight compared to his usual weight. He wears glasses. Hearing is good. Pharynx without abnormality. Gag in place. No sinus pressure tenderness. NECK: Supple. No bruits in neck. HEART: S1, S2. There is a systolic murmur at left upper sternal border. The patient's status was discussed at length. ASSESSMENT: 1. Chest pain, etiology indeterminate. 2. Rule out chest pain, secondary to conversion disorder. 3. Depression, anxiety, bipolar. 4. Debilitating chest pain, and he is losing weight because of it. PLAN: I have discussed the patient's status with Dr. Choi. Instead of having a stress test performed or even a cardiac evaluation performed on 08/23/2017, this was pushed up to have a stress test completed and performed at [facility] within the next [address] Choi has accepted the patient. The patient will be transferred by ambulance. IV in place. No other medication provided for the patient. /[id number] ALBERT/ILIAL
== END 2017-08-05 00:01 | disposition home or self-care (01) ==
LOC: FB.ED 15:05
DX: R07.9 Chest pain, unspecified (principal); F31.9 Bipolar disorder, unspecified; F41.9 Anxiety disorder, unspecified
CPT/HCPCS: 36415; 84484; 93005; 96360; 96361; 99285; A9270; J7040; 93010

== ENCOUNTER 2017-08-18 11:33 | Emergency (ER) | payer MEDICARE, MEDICAID ==
--- NOTE | 2017-08-18 11:53 | EDM.PDOC ---
ED HPI GENERAL MEDICAL PROBLEM - General Stated Complaint: CHEST PAIN, NUMB FACE Time Seen by Provider: 08/18/17 11:33 Source of Information: Reports: Patient History Limitations: Reports: No Limitations - History of Present Illness INITIAL COMMENTS - FREE TEXT/NARRATIVE: 32 y.o w m came to the ed c/o CP. Pt is well know in this id due to multiple visits. Pt stated he has thsi pain since this am, "extremely bad". Pt stated as well, he has quadruple bypass surgery scheduled for Aug 23 at [facility]. No N/V/ D BP 124/82 HR 80, RR 16 O2 Sat 100 on RA. Pt has no chest pain when ambulating. Onset: Today Onset Date: 08/18/17 Onset Time: 10:00 Duration: Hour(s):, Intermittent Location: Reports: Chest Quality: Reports: Ache Severity: Severe Improves with: Reports: None Worsens with: Reports: None Context: Reports: Other (Pt had this CP for several years) Associated Symptoms: Reports: No Other Symptoms Chest Pain Score (Numeric/FACES): 2 - Related Data Allergies Allergy/AdvReac Type Severity Reaction Status Date / Time acetaminophen [From Lortab] Allergy Airway Verified 08/05/17 08:20 Tightness doxycycline Allergy Blisters Verified 08/05/17 08:20 hydrocodone bitartrate Allergy Difficulty Verified 08/05/17 08:20 [From Vicodin] Breathing Home Meds: Home Meds Aspirin 81 mg PO DAILY 08/02/17 [History] Past Medical History - Past Health History Medical/Surgical History: Denies Medical/Surgical History HEENT History: Reports: Impaired Vision, Other (See Below) Other HEENT History: Wears glasses. Cardiovascular History: Reports: Hypertension, Other (See Below) Other Cardiovascular History: Episodes of feeling heart irregularities and chest tightness. Respiratory History: Reports: Other (See Below) Other Respiratory History: Patient states he has been exposed to "Black Mold". Gastrointestinal History: Reports: GERD Other Gastrointestinal History: Acid reflux. Neurological History: Reports: Concussion, Migraines Psychiatric History: Reports: Aggressive/Hostile Behaviors, Antisocial Behaviors , Anxiety, Bipolar, Depression, Learning Disability, Mood Swings, Psych Hospitalization(s), Suicide Attempt, Suicidal Ideation, Other (See Below) Other Psychiatric History: alcohol syndrome. Endocrine/Metabolic History: Reports: Hypothyroidism Other Endocrine/Metabolic History: Patient states he is borderline diabetic. Dermatologic History: Reports: Psoriasis - Infectious Disease History Infectious Disease History: Reports: Chicken Pox - Past Surgical History Other Cardiovascular Surgeries/Procedures: Patient states he had cardiac stents placed. Social & Family History - Family History Family Medical History: Noncontributory Cardiac: Reports: Angina, Hypertension, [place] Other Cardiac Family History: Father at 42 due to heart related issues. Aunts and uncles have a history of cardiac issues. Respiratory: Reports: Other (See Below) Other Respiratory Family Hisory: Lung CA. - Tobacco Use Smoking Status *Q: Never Smoker Years of Tobacco use: 10 Packs/Tins Daily: 0.2 Used Tobacco, but Quit: No Month Tobacco Last Used: April Second Hand Smoke Exposure: No - Caffeine Use Caffeine Use: Reports: None Caffeine Use Comment: Pt refused to answer questions - Alcohol Use Days Per Week of Alcohol Use: 1 Number of Drinks Per Day: 4 Total Drinks Per Week: 4 - Recreational Drug Use Recreational Drug Use: No Drug Use in Last 12 Months: Yes Recreational Drug Type: Reports: Marijuana/Hashish Other Recreational Drug Type: Denies recreational drug use. Recreational Drug Use Frequency: Weekly - Living Situation & Occupation Living situation: Reports: Single ED ROS GENERAL - Review of Systems Review Of Systems: See Below Constitutional: Reports: No Symptoms HEENT: Reports: No Symptoms Respiratory: Reports: No Symptoms Cardiovascular: Reports: No Symptoms Endocrine: Reports: No Symptoms GI/Abdominal: Reports: No Symptoms : Reports: No Symptoms Musculoskeletal: Reports: No Symptoms Skin: Reports: No Symptoms Neurological: Reports: No Symptoms Psychiatric: Reports: No Symptoms Hematologic/Lymphatic: Reports: No Symptoms Immunologic: Reports: No Symptoms ED EXAM, GENERAL - Physical Exam Exam: See Below Exam Limited By: No Limitations General Appearance: Alert, WD/WN, No Apparent Distress Eye Exam: Bilateral Eye: Normal Inspection Ears: Normal External Exam Ear Exam: Bilateral Ear: Auricle Normal Nose: Normal Inspection, Normal Mucosa Throat/Mouth: Normal Inspection, Normal Lips Head: Atraumatic, Normocephalic Neck: Normal Inspection, Supple, Non-Tender, Full Range of Motion Respiratory/Chest: No Respiratory Distress, Lungs Clear, Normal Breath Sounds, No Accessory Muscle Use, Chest Non-Tender Cardiovascular: Normal Peripheral Pulses, Regular Rate, Rhythm, No Edema, No Gallop, No JVD, No Murmur, No Rub Peripheral Pulses: 1+: Radial (L), Radial (R) GI/Abdominal: Normal Bowel Sounds, Non-Tender, No Organomegaly, No Distention, No Abnormal Bruit, No Mass, Pelvis Stable (Male) Exam: Deferred Rectal (Males) Exam: Deferred Back Exam: Normal Inspection, Full Range of Motion Extremities: Normal Inspection, Normal Range of Motion, Non-Tender, No Pedal Edema Neurological: Alert, Oriented, CN II-XII Intact, Normal Cognition, Normal Gait, No Motor/Sensory Deficits Psychiatric: Anxious Skin Exam: Warm, Dry, Intact, Normal Color, No Rash Lymphatic: No Adenopathy Course - Vital Signs Text/Narrative:: 32 y.o w m came to the ed c/o CP. Pt is well know in this id due to multiple visits. Pt stated he has thsi pain since this am, "extremely bad". Pt stated as well, he has quadruple bypass surgery scheduled for Aug 23 at [facility]. No N/V/ D BP 124/82 HR 80, RR 16 O2 Sat 100 on RA. Pt has no chest pain when ambulating. PE: HEENT =WNK, Neck, heardt lungs, ext and neuro exam were all Neg. Labs and Imaging studies were not indicated Impression: Well adult. Reeaxam: I ave been calling [facility] in [facility]: Mr Baird has no surgery scheduled. He will see a doctor for his sleeping meds on August 21. Reexam: Pt was pain fee, his vital were all nl. He walked without difficulty Plan: D/C with instruction. Pt was swearing at the medical staff as he walked out of the ed and refused to sign the papers. In addition, he stated he "I will run now all over town till I have CP" Last Recorded V/S: Last Vital Signs Temp 36.6 C 08/18/17 11:35 Pulse 80 08/18/17 11:35 Resp 16 08/18/17 11:35 BP 136/79 08/18/17 11:35 Pulse Ox 100 08/18/17 11:35 Departure - Departure Time of Disposition: 11:54 Disposition: Home, Self-Care 01 Condition: Good Clinical Impression: Well adult Referrals: PCP,None [Primary Care Provider] - Forms: ED Department Discharge Additional Instructions: Please f/u with your doctor on Aug 21 at [facility] as scheduled for sleeping meds evaluation. Please come back if you have symptoms.
[2017-08-18 12:34] VITALS: BP 136/79
== END 2017-08-18 12:00 | disposition home or self-care (01) ==
LOC: FB.ED 11:33
DX: Z00.00 Encounter for general adult medical examination without abnormal findings (principal); R07.9 Chest pain, unspecified; Z88.5 Allergy status to narcotic agent; I10 Essential (primary) hypertension; E03.9 Hypothyroidism, unspecified; Z95.5 Presence of coronary angioplasty implant and graft; Z79.82 Long term (current) use of aspirin; Z88.6 Allergy status to analgesic agent; Z88.1 Allergy status to other antibiotic agents
CPT/HCPCS: 99282; 99284

== ENCOUNTER 2017-09-17 22:57 | Emergency (ER) | payer MEDICARE, MEDICAID ==
[2017-09-17] MEDS ORDERED: Ibuprofen 600 MG Tab PO ONE (23:14)
--- NOTE | 2017-09-17 23:16 | EDM.PDOC ---
ED HPI GENERAL MEDICAL PROBLEM - General Stated Complaint: RIGHT ARM DISLOCATED Time Seen by Provider: 09/17/17 22:57 Source of Information: Reports: Patient History Limitations: Reports: No Limitations - History of Present Illness INITIAL COMMENTS - FREE TEXT/NARRATIVE: 32 y.o.w.m. well know here in the ed due to his frequent visits, came to the ed , stating he dislocated his left shoulder and he reduced it. he has minor post r shoulder pain. No other acute medical issues. He has FROM of his shoulder, no wound. No N/V/D Onset: Today Onset Date: 09/17/17 Onset Time: 22:00 Duration: Minutes: Location: Reports: Upper Extremity, Right Quality: Reports: Ache, Dull Severity: Mild Improves with: Reports: Rest Worsens with: Reports: Movement Context: Reports: Other (pt stated he dislocated his right shoulder) Associated Symptoms: Reports: No Other Symptoms right shoulder Pain Score (Numeric/FACES): 7 - Related Data Allergies Allergy/AdvReac Type Severity Reaction Status Date / Time acetaminophen [From Lortab] Allergy Airway Verified 08/05/17 08:20 Tightness doxycycline Allergy Blisters Verified 08/05/17 08:20 hydrocodone bitartrate Allergy Difficulty Verified 08/05/17 08:20 [From Vicodin] Breathing Home Meds: Home Meds Aspirin 81 mg PO DAILY 08/02/17 [History] Past Medical History - Past Health History Medical/Surgical History: Denies Medical/Surgical History HEENT History: Reports: Impaired Vision, Other (See Below) Other HEENT History: Wears glasses. Cardiovascular History: Reports: Hypertension, Other (See Below) Other Cardiovascular History: Episodes of feeling heart irregularities and chest tightness. Respiratory History: Reports: Other (See Below) Other Respiratory History: Patient states he has been exposed to "Black Mold". Gastrointestinal History: Reports: GERD Other Gastrointestinal History: Acid reflux. Neurological History: Reports: Concussion, Migraines Psychiatric History: Reports: Aggressive/Hostile Behaviors, Antisocial Behaviors , Anxiety, Bipolar, Depression, Learning Disability, Mood Swings, Psych Hospitalization(s), Suicide Attempt, Suicidal Ideation, Other (See Below) Other Psychiatric History: alcohol syndrome. Endocrine/Metabolic History: Reports: Hypothyroidism Other Endocrine/Metabolic History: Patient states he is borderline diabetic. Dermatologic History: Reports: Psoriasis - Infectious Disease History Infectious Disease History: Reports: Chicken Pox - Past Surgical History Other Cardiovascular Surgeries/Procedures: Patient states he had cardiac stents placed. Social & Family History - Family History Family Medical History: Noncontributory Cardiac: Reports: Angina, Hypertension, [place] Other Cardiac Family History: Father at 42 due to heart related issues. Aunts and uncles have a history of cardiac issues. Respiratory: Reports: Other (See Below) Other Respiratory Family Hisory: Lung CA. - Tobacco Use Smoking Status *Q: Never Smoker Years of Tobacco use: 10 Packs/Tins Daily: 0.2 Used Tobacco, but Quit: No Month Tobacco Last Used: April Second Hand Smoke Exposure: No - Caffeine Use Caffeine Use: Reports: None Caffeine Use Comment: Pt refused to answer questions - Alcohol Use Days Per Week of Alcohol Use: 1 Number of Drinks Per Day: 4 Total Drinks Per Week: 4 - Recreational Drug Use Recreational Drug Use: No Drug Use in Last 12 Months: Yes Recreational Drug Type: Reports: Marijuana/Hashish Other Recreational Drug Type: Denies recreational drug use. Recreational Drug Use Frequency: Weekly - Living Situation & Occupation Living situation: Reports: Single Review of Systems - Review of Systems Review Of Systems: See Below Constitutional: Reports: No Symptoms Eyes: Reports: No Symptoms Ears: Reports: No Symptoms Nose: Reports: No Symptoms Mouth/Throat: Reports: No Symptoms Respiratory: Reports: No Symptoms Cardiovascular: Reports: No Symptoms GI/Abdominal: Reports: No Symptoms Genitourinary: Reports: No Symptoms Musculoskeletal: Reports: Shoulder Pain (posteior) Skin: Reports: No Symptoms Neurological: Reports: No Symptoms Psychiatric: Reports: No Symptoms ED EXAM, GENERAL - Physical Exam Exam: See Below Exam Limited By: No Limitations General Appearance: Alert, WD/WN, No Apparent Distress Eye Exam: Bilateral Eye: Normal Inspection Ears: Normal External Exam Ear Exam: Bilateral Ear: Auricle Normal Nose: Normal Inspection Throat/Mouth: Normal Inspection Head: Atraumatic, Normocephalic Neck: Normal Inspection, Supple, Non-Tender Respiratory/Chest: No Respiratory Distress, Lungs Clear Cardiovascular: Normal Peripheral Pulses, Regular Rate, Rhythm Peripheral Pulses: 1+: Radial (L), Radial (R) GI/Abdominal: Normal Bowel Sounds, Soft, Non-Tender (Male) Exam: Deferred Rectal (Males) Exam: Deferred Back Exam: Normal Inspection, Full Range of Motion Extremities: Normal Inspection, Normal Range of Motion, Non-Tender, No Pedal Edema, Normal Capillary Refill Neurological: Alert, Oriented, CN II-XII Intact, Normal Cognition, Normal Gait, No Motor/Sensory Deficits Psychiatric: Normal Affect, Normal Mood Skin Exam: Warm, Dry, Intact, Normal Color, No Rash Lymphatic: No Adenopathy Course - Vital Signs Text/Narrative:: 32 y.o.w.m. well know here in the ed due to his frequent visits, came to the ed , stating he dislocated his left shoulder and he reduced it. he has minor post r shoulder pain. No other acute medical issues. He has FROM of his shoulder, no wound. No N/V/D PE: Minor right post shoulder discomfort.FROM all extremities Imoging/labs not indicated Impression: Minor discomfort right post shoulder Tx: Motrin/ice Reexam: D/C with instruction Plan: D/C with instructions Last Recorded V/S: Last Vital Signs Temp 36.6 C 09/17/17 23:10 Pulse 74 09/17/17 23:10 Resp 18 09/17/17 23:10 BP 132/97 H 09/17/17 23:10 Pulse Ox 100 09/17/17 23:10 - Orders/Labs/Meds Orders: Active Orders 24 hr Category Date Time Status Cooling Warming Measures [RC] ASDIRECTED Care 09/17/17 23:14 Active Ice Bag [Ice Therapy] [OM.PC] Routine Oth 09/17/17 23:14 Ordered Meds: Medications Discontinued Medications Generic Name Dose Route Start Last Admin Trade Name Marco A PRN Reason Stop Dose Admin Ibuprofen 600 mg 09/17/17 23:14 09/17/17 23:20 Motrin PO 09/17/17 23:15 600 mg ONETIME ONE Administration Departure - Departure Time of Disposition: 23:18 Disposition: Home, Self-Care 01 Condition: Good Clinical Impression: Shoulder pain, left Qualifiers: Chronicity: unspecified Qualified Code(s): M25.512 - Pain in left shoulder - Discharge Information Referrals: PCP,None [Primary Care Provider] - Forms: ED Department Discharge Additional Instructions: Please take Motrin for pain, ice to the affected area, please f/u, come back if you symptoms get acutely worse. - My Orders Last 24 Hours: My Active Orders 09/17/17 23:14 Cooling Warming Measures [RC] ASDIRECTED Ice Bag [Ice Therapy] [OM.PC] Routine - Assessment/Plan Last 24 Hours: My Active Orders 09/17/17 23:14 Cooling Warming Measures [RC] ASDIRECTED Ice Bag [Ice Therapy] [OM.PC] Routine
[2017-09-17 23:29] VITALS: BP 132/97
== END 2017-09-17 23:20 | disposition home or self-care (01) ==
LOC: FB.ED 22:57
DX: M25.511 Pain in right shoulder (principal); I10 Essential (primary) hypertension; Z88.6 Allergy status to analgesic agent; Z88.1 Allergy status to other antibiotic agents
CPT/HCPCS: 99282; 99283; A9270

== ENCOUNTER 2017-10-09 13:04 | Emergency (ER) | payer MEDICARE, MEDICAID ==
[2017-10-09 16:10] VITALS: BP 121/79
--- NOTE | 2017-10-10 09:44 | ER ---
DATE SEEN: 10/09/2017 TIME SEEN: 1355 hours. HISTORY: I transferred him to [facility] 2-3 months ago in hope that he would get angiography to confirm if he had any coronary disease, no angiography was done, and he was told, to his ongoing angst,somethings to the effect that "his heart pain was all in his head." Today, he experienced 3 minute mild left arm discomfort while he was walking. He is worried he may have had a myocardial infarction. "I know that I am going to just get up an ." And then proceeded to lace the conversation with epithets to all the practioners, hospitals and staff that his relatives are going to angely after he dies from a heat attack. Has multiplicity of problems and a history in the past of at least 30+ iof these on his problem list. I am not going to list them at this point because they have been listed many times before. REVIEW OF SYSTEMS: Left arm numbness that is transient, lasts for a short period of time when he is walking. Does not have it now. He had associated diaphoresis. Denies chest pain today. He was worried because this resolved his elevated blood pressure, it was 170/138. This was repeated and it was not elevated as he came into the hospital. ALLERGIES: Acetaminophen, doxycycline, and hydrocodone. MEDICATIONS: He is not taking medicines currently. He says "I am just going to rollover and from a heart attack someday."... I am not taking medicines the prescribed for me. PHYSICAL EXAMINATION: VITAL SIGNS: Blood pressure 128/101, repeated 138/85; heart rate 98, went down to 75; respirations 18, no change; oxygen saturation 100%. His temperature is 36.4, normal centigrade. GENERAL: Johny is the usual vocal complaining person, who laced his conversation with F words, which I reminded he did not have to use in an environment. HEENT: Without abnormality. The patient's head is shaved. Does not have hair on his head. PERRLA intact. Pharynx without abnormality. No thyromegaly. No masses in the neck. No cervical adenopathy. LUNGS: Clear without rales, rhonchi, or wheezes. HEART: S1, S2. No irregular rate and rhythm. No S3, no S4. ABDOMEN: Soft. No guarding. No abdominal discomfort. No CVA percussion tenderness. EXTREMITIES: Lower extremities without tenderness to lower extremities. No pedal edema. NEURO: Deep tendon reflexes in upper and lower extremities. Cranial nerves 2 through 12 intact. Gait normal. Muscle strength normal. LABORATORY DATA: All normal, CBC, CMP, troponin, and EKG. AST, slight elevation at 30; ALT 39. EKG left ventricular hypertrophy. Normal sinus rhythm. ASSESSMENT: The patient has investment in his chest pain. There is no clear etiology for chest pain presently. Reassured the patient. The patient dismissed to follow up as needed. He is also psychosomatic and his concern is he potentially could have heart attack. At present, there is no evidence for that. He will need to follow up on a regular basis. Follow up with his doctor in a week. No change in medicines. He would do well to have weekly cognitive behavior therapy. /[id number] ALBERT/CHEN PAIGE
== END 2017-10-09 15:40 | disposition home or self-care (01) ==
LOC: FB.ED 13:04
DX: R07.9 Chest pain, unspecified (principal); Z88.1 Allergy status to other antibiotic agents; Z88.5 Allergy status to narcotic agent; Z88.6 Allergy status to analgesic agent
CPT/HCPCS: 36415; 80053; 84484; 85025; 93005; 93010; 99283; 99284

== ENCOUNTER 2017-11-06 13:38 | Emergency (ER) | payer MEDICARE, MEDICAID ==
[2017-11-06] MEDS ORDERED: cefTRIAXone 250 MG Vial IM ONE (14:18)
[2017-11-06] MEDS ORDERED: Azithromycin 250 MG Tab PO ONE (14:18)
[2017-11-06] MEDS ORDERED: Ondansetron 4 MG Tab.DIS PO ONE (14:20)
[2017-11-06] MEDS ORDERED: Azithromycin 500 MG Tab PO ONE (15:00)
[2017-11-06 19:38] VITALS: BP 141/85
--- NOTE | 2017-11-07 14:55 | ER ---
DATE SEEN: 11/06/2017 TIME SEEN: The patient was seen at 1350 hours. HISTORY OF PRESENT ILLNESS: The patient is here because he is not feeling well. He had relations with a disreputable individual and he is wondering if he has herpes. He has sores in his mouth, his mouth is sore. He denies any penile sores. No past history of herpes. He notes he has fatigue. He complains that he is so tired that he can hardly keep his eyes open. He was at [facility] on October 31, 2017, and highlights of this discussion with Dr. Jona Rodriguez, Cardiovascular Disease, are that he had a coronary angiogram and the angiogram was negative. Other specific lined items; 1. Chronic chest pain intermittently with fear of by heart attack. 2. Symptoms describing orthostatic hypotension. 3. Erectile dysfunction history. 4. Profuse sweating, which resulted in his job loss. 5. Progressive sleep disturbance and daytime sleeping. 6. Family history of early heart disease with fear of early because of heart attack. Sometimes, he is feeling that he would like to commit suicide, so he won't have to think about it. 7. Obsessive-compulsive behavior, depression, isolated lifestyle, alteration in mood between depression and animated activity to flight of ideas, dysesthesia suggestive of migraine equivalent, bipolar disorder, and features suggestive of schizophrenia. PAST MEDICAL HISTORY: He has a lengthy past medical history of migraines, bipolar disorder, neck pain, anxiety, and chronic intermittent chest discomfort. PHYSICAL EXAMINATION: VITAL SIGNS: Blood pressure 135/75, heart rate 62, respirations 18, oxygen saturation 100% on room air, and temperature is 36.1 degrees. GENERAL: He has a shaven head. He is unchanged from before. He is articulate and moves his head around, waves his hand a lot, and talks with gestures. He is energetic in his conversation. Then, he does change abruptly to sometimes more depressed mood, quiet, and reserved, and wanting to just plain leave. HEENT: PERRLA intact. Oropharynx, I do not see any lesions suggestive of herpes. There is no erythema in the oropharynx. The oropharynx is normal. NECK: No cervical adenopathy. No thyromegaly. No masses in neck. LUNGS: Clear without rales, rhonchi, or wheezes. HEART: S1, S2. No irregularity of rhythm. ABDOMEN: Soft. No guarding. No abdominal discomfort. GENITALIA: He was reluctant to have me examine. Apparently, he has not had any lesions on his genitalia. EXTREMITIES: Without any abnormality of dermis. LABORATORY FINDINGS: Urine for chlamydia and GC obtained. Possible sexual infection (STD no longer used in the vocabulary). Plan, use azithromycin 1000 mg orally and ceftriaxone 250 mg IM. Zofran 4 oral. The patient is not interested in use of valacyclovir. At this point, there is no clear evidence for herpetic lesions. ASSESSMENT: 1. Possibly sexually transmitted disease-sexual infection. 2. 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 3. Bipolar. 4. Borderline schizophrenia. 5. Isolation. 6. Family history of heart disease. 7. Erectile dysfunction. 8. History of diaphoresis with job loss secondary to diaphoresis. 9. Not suicidal, although, he talked about he would rather be on some occasions because nobody listens to him. 10.The latter is in no longer a large part of this conversation because he had gone to [facility], and they reassured him on cardiac angiogram that he had normal cardiac studies. The patient will follow up with a doctor in a week. No other medications given to the patient. He got a prescription for azithromycin and was given azithromycin in the emergency room, so he did not have to fill it. The possibility of sexually transmitted disease remains. He needs to come back and follow up with a doctor in a week to 10 days. Discuss HIV evaluation and/or treatment, also check for syphilis, and also to consider if he needs valacyclovir. At present, he is asymptomatic and not had any lesions suggestive of herpes. /[id number] ALBERT/CHEN
--- NOTE | 2017-11-11 09:02 | ER ---
DATE SEEN: 11/06/2017 TELEPHONE CALL - 11/08/2017 I told him that his chlamydia and gonorrhea tests were negative. He was jubilant. He also said after he had the shot, he has not felt this good for a long time. He noted he had coughed up some more sputum today and felt much better. In fact, he said "Those shots and that medicine was just what I needed." In fact, he was so jubilant he said in fact "I think I am going to start running again." In the past, he had run up to 8 miles a day. I encouraged him to take that seriously and advised him to call me after his first run, so we can celebrate his progress. /[id number] ALBERT/CHEN
== END 2017-11-06 15:27 | disposition home or self-care (01) ==
LOC: FB.ED 13:38
DX: I20.8 Other forms of angina pectoris (principal); F31.9 Bipolar disorder, unspecified; F20.9 Schizophrenia, unspecified; N52.9 Male erectile dysfunction, unspecified; Z60.4 Social exclusion and rejection
CPT/HCPCS: 87491; 87591; 96372; 99283; A9270-GY; J0696

== ENCOUNTER 2017-11-13 20:58 | Emergency (ER) | payer MEDICARE, MEDICAID ==
[2017-11-13 22:18] VITALS: BP 133/89
--- NOTE | 2017-11-13 22:49 | EDM.PDOC ---
ED HPI GENERAL MEDICAL PROBLEM - General Chief Complaint: General Stated Complaint: MEDS REACTION Time Seen by Provider: 11/13/17 21:30 Source of Information: Reports: Patient History Limitations: Reports: No Limitations - History of Present Illness INITIAL COMMENTS - FREE TEXT/NARRATIVE: 32 y.o.w.m came to the ed because " he feels imbalanced" No physical issues. Onset Date: 11/13/17 Onset Time: 08:00 Duration: Intermittent Location: Reports: Generalized Quality: Reports: Other (pt feels imbalanced(?);--rerrkltlk) Severity: Mild Improves with: Reports: None Worsens with: Reports: None Context: Reports: Other (pt feels imbalanced(?)) - Related Data Allergies Allergy/AdvReac Type Severity Reaction Status Date / Time acetaminophen [From Lortab] Allergy Airway Verified 11/13/17 21:58 Tightness doxycycline Allergy Blisters Verified 11/13/17 21:58 hydrocodone bitartrate Allergy Difficulty Verified 11/13/17 21:58 [From Vicodin] Breathing Home Meds: Home Meds . [Unable to Verify Home Med List] 11/13/17 [History] Past Medical History - Past Health History Medical/Surgical History: Denies Medical/Surgical History HEENT History: Reports: Impaired Vision, Other (See Below) Other HEENT History: Wears glasses. Cardiovascular History: Reports: Hypertension, Other (See Below) Other Cardiovascular History: Episodes of feeling heart irregularities and chest tightness. Respiratory History: Reports: Other (See Below) Other Respiratory History: Patient states he has been exposed to "Black Mold". States [facility] stated had respiratory issues. Gastrointestinal History: Reports: GERD Other Gastrointestinal History: Acid reflux. Neurological History: Reports: Concussion, Migraines Psychiatric History: Reports: Aggressive/Hostile Behaviors, Antisocial Behaviors , Anxiety, Bipolar, Depression, Learning Disability, Mood Swings, Psych Hospitalization(s), Suicide Attempt, Suicidal Ideation, Other (See Below) Other Psychiatric History: alcohol syndrome. Endocrine/Metabolic History: Reports: Hypothyroidism Other Endocrine/Metabolic History: Patient states he is borderline diabetic. Dermatologic History: Reports: Psoriasis - Infectious Disease History Infectious Disease History: Reports: Chicken Pox - Past Surgical History Other Cardiovascular Surgeries/Procedures: Patient states he had cardiac stents placed. Social & Family History - Family History Family Medical History: Noncontributory Cardiac: Reports: Angina, Hypertension, [place] Other Cardiac Family History: Father at 42 due to heart related issues. Aunts and uncles have a history of cardiac issues. Respiratory: Reports: Other (See Below) Other Respiratory Family Hisory: Lung CA. - Tobacco Use Smoking Status *Q: Former Smoker Years of Tobacco use: 3 Packs/Tins Daily: 0.2 Used Tobacco, but Quit: Yes Month Tobacco Last Used: 3 weeks Second Hand Smoke Exposure: No - Caffeine Use Caffeine Use: Reports: Coffee, Soda Caffeine Use Comment: Pt refused to answer questions - Alcohol Use Days Per Week of Alcohol Use: 1 Number of Drinks Per Day: 4 Total Drinks Per Week: 4 - Recreational Drug Use Recreational Drug Use: No Drug Use in Last 12 Months: Yes Recreational Drug Type: Reports: Marijuana/Hashish Other Recreational Drug Type: Denies recreational drug use. Recreational Drug Use Frequency: Weekly - Living Situation & Occupation Living situation: Reports: Single ED ROS GENERAL - Review of Systems Review Of Systems: See Below Constitutional: Reports: No Symptoms HEENT: Reports: No Symptoms Respiratory: Reports: No Symptoms Cardiovascular: Reports: No Symptoms Endocrine: Reports: No Symptoms GI/Abdominal: Reports: No Symptoms : Reports: No Symptoms Musculoskeletal: Reports: No Symptoms Skin: Reports: No Symptoms Neurological: Reports: No Symptoms Psychiatric: Reports: No Symptoms Hematologic/Lymphatic: Reports: No Symptoms Immunologic: Reports: No Symptoms ED EXAM, GENERAL - Physical Exam Exam: See Below Exam Limited By: No Limitations General Appearance: Alert, WD/WN, No Apparent Distress Eye Exam: Bilateral Eye: Normal Inspection Ears: Normal External Exam Ear Exam: Bilateral Ear: Auricle Normal Nose: Normal Inspection, Normal Mucosa, No Blood Throat/Mouth: Normal Inspection, Normal Lips Head: Atraumatic, Normocephalic Neck: Normal Inspection, Supple, Non-Tender Respiratory/Chest: No Respiratory Distress, Lungs Clear Cardiovascular: Normal Peripheral Pulses, Regular Rate, Rhythm, No Edema, No Gallop GI/Abdominal: Normal Bowel Sounds (Male) Exam: Deferred Rectal (Males) Exam: Deferred Back Exam: Normal Inspection Extremities: Normal Inspection Neurological: Alert, Oriented, CN II-XII Intact Psychiatric: Normal Affect Skin Exam: Warm Lymphatic: No Adenopathy Course - Vital Signs Text/Narrative:: 32 y.o.w.m came to the ed because " he feels imbalanced" No physical issues. PE: NL PE Labs: BUN/CR elevated Impression: Dehydration Plan: D/C with instructions Last Recorded V/S: Last Vital Signs Temp 36.6 C 11/13/17 21:30 Pulse 68 11/13/17 21:30 Resp 19 11/13/17 21:30 BP 133/89 11/13/17 21:30 Pulse Ox 100 11/13/17 21:30 - Orders/Labs/Meds Labs: Laboratory Tests 11/13/17 Range/Units 22:20 Sodium 142 (135-145) mmol/L Potassium 4.2 (3.5-5.3) mmol/L Chloride 104 (100-110) mmol/L Carbon Dioxide 30 (21-32) mmol/L BUN 17 (7-18) mg/dL Creatinine 0.8 (0.70-1.30) mg/dL Est Cr Clr Drug Dosing 119.63 mL/min Estimated GFR (MDRD) > 60 (>60) BUN/Creatinine Ratio 21.3 H (9-20) Glucose 87 (80-116) mg/dL Calcium 9.8 (8.6-10.2) mg/dL Departure - Departure Time of Disposition: 22:47 Disposition: Home, Self-Care 01 Condition: Good Clinical Impression: Dehydration - Discharge Information Instructions: Rehydration, Adult Referrals: PCP,None [Primary Care Provider] - Forms: ED Department Discharge Additional Instructions: Please increase water intake, please f/u, come back if your symptoms get worse acutely
== END 2017-11-13 22:50 | disposition home or self-care (01) ==
LOC: FB.ED 20:58
DX: E86.0 Dehydration (principal); Z87.891 Personal history of nicotine dependence; K21.9 Gastro-esophageal reflux disease without esophagitis; Z88.1 Allergy status to other antibiotic agents; Z88.6 Allergy status to analgesic agent; Z88.8 Allergy status to other drugs, medicaments and biological substances
CPT/HCPCS: 36415; 80048; 99283

== ENCOUNTER 2017-11-26 21:20 | Emergency (ER) | payer MEDICARE, MEDICAID ==
[2017-11-26 21:35] VITALS: BP 151/77
--- NOTE | 2017-11-27 17:01 | ER ---
DATE SEEN: 11/26/2017 TIME SEEN: The patient was seen at 2200 hours. HISTORY OF PRESENT ILLNESS: This 32-year-old male who has multiple problems which are apparent that he has schizophrenia with delusions and perseverates about taking antibiotics for a cold. He knew that he had gotten better some time ago and feels like he has the same thing is going on. Now, he has no fever, but has mild congestion and slight cough. Denies ear pain, throat pain, shortness of breath, chest pain, irregular heartbeat, abdominal discomfort. Denies nausea, vomiting, diarrhea, or muscle aches for having laid in bed for several days. I advised the patient that he probably should get an influenza evaluation. He flatly refused, and started accusing me that I was not believing him. REVIEW OF SYSTEMS: HEENT: Nasal congestion. Denies neck pain. Denies sore throat. He has a cough and mildly productive sputum, and then he talks about his sputum is green. Denies chest pain. No irregular heartbeat, shortness of breath or denies abdominal discomfort, change in bowels or GI symptoms or symptoms. No musculoskeletal symptoms or headaches. PHYSICAL EXAMINATION: VITAL SIGNS: Blood pressure 151/77, heart rate 86, respirations 18, oxygen saturation 100%, pulse is 86, temperature 36.4 degrees centigrade. Weight 92.89 kg with a BMI of 27.8 kg/m2. CONSTITUTIONAL: The patient is alert, he looks slightly tired. He is wearing a T-shirt in weather that is -5 outside at least. HEENT: PERRLA intact. Pharynx without abnormality. No sinus pressure or tenderness. TMs negative. NECK: Supple. No cervical adenopathy. LUNGS: Clear without rales, rhonchi, or wheezes. HEART: S1, S2. No murmur. ABDOMEN: Soft. No guarding. No abdominal discomfort. EXTREMITIES: Without edema. NEUROLOGIC: Not performed. WORKING DIAGNOSIS: Prior upper and lower respiratory infection. PLAN: Plan is not to treat any with antibiotics. He perseverated 7-8 times about need for antibiotics, and started accusing me and saying things, and said "How could I not treat him like the other people?" and he goes on and on and finally to the point where I said after he had perseverated at least 7 to 8 times about the same things. He told me that I was not listening to him. I said, "Johny, you can talk about the same thing 7 to 8 times and I have heard everything you said." The patient then said he would not get influenza tested and not take Tamiflu and I told him, "As long as you refuse the medicine, I have the right to refuse to treat you." Thus, he decided to get up and leave and left AMA, a very typical coping mechanism of his: just get up and leave to solve his problem. He usually leaves, does not accept any responsibility, and then blames every one else, (project his inadequacy onto someone else). DIAGNOSES: 1. Upper and lower respiratory infection with bronchitis. 2. Schizophrenia. 3. Problem List: He has almost 30 different problems that have been documented in the past problem list. This reflects his overuse of health care. He has degraded and also denounced most of the providers, because they do not provide for him what he wants or give him the diagnoses which he wants. When he went to [facility], he refused to be evaluated when they told him they thought he had schizophrenic issues. He just did not show up for the appointment. 4. He is bipolar. Time spent with this patient, 35 minutes. /[id number] ALBERT/CHEN PAIGE
== END 2017-11-26 22:25 | disposition home or self-care (01) ==
LOC: FB.ED 21:20
DX: J40 Bronchitis, not specified as acute or chronic (principal); J06.9 Acute upper respiratory infection, unspecified; F20.9 Schizophrenia, unspecified; F31.9 Bipolar disorder, unspecified
CPT/HCPCS: 99283

== ENCOUNTER 2017-11-30 08:45 | Emergency (ER) | payer MEDICARE, MEDICAID ==
[2017-11-30 09:53] VITALS: BP 128/75
--- NOTE | 2017-12-03 13:24 | ER ---
DATE SEEN: 11/30/2017 TIME SEEN: The patient was seen at 0920 hours. HISTORY OF PRESENT ILLNESS: The patient notes that he was apologetic for a discussion yesterday. He returns today and wonders what he can do for his bronchitis. He would like prednisone. He feels the prednisone opens his lungs. He has been coughing now for two weeks. He denies fever and denies productive cough. He has been using steaming with Vicks boiled in water and "BM Pass Max" plus albuterol nebs; he feels they all help him. He is unusually pleasant today and that is a nice change from yesterday. PHYSICAL EXAMINATION: HEENT: Pharynx is without abnormality or erythema. Nares have marked turbinate enlargement (he uses Flonase). TMs negative. His teeth are not carious, but there are widening gaps between the teeth. He currently uses the mouthwash. NECK: No cervical adenopathy. LUNGS: Clear without rales. The patient engaged in repetitive coughing. There is no wheezing and no rhonchi. HEART: S1 and S2. No irregular rate. He is in sinus rhythm. ABDOMEN: Soft. No guarding. No abdominal discomfort. CHEST: He has accessory gynecomastia and spasms in his upper body, but he has not changed from before. ASSESSMENT: 1. Cough. 2. Mild tracheitis. 3. Possible lung mucosal irritation introduced by the zbwz-jci-sqysccj medicines that he is using. 4. He uses mouthwash on a daily basis, literature states decrease calcium and cause abnormal resistant bacterial overgrowth. 5. He is not perseverating like he did yesterday. PLAN: Quiet discussion, support and teaching on the effect of mouthwash actually increases resistant bacteria and he should stop that. It causes more teeth problem because of change/loss of the benificent josue that protects his mouth. The mouthwash diminishes calcium ingression and diminishes the protection of teeth by increased saliva. I have discouraged him to use any other [id number]-hua-rrlljmu medicines, he needs to save his money. Right now, he is experiencing some tachyphylaxis because of liliane excessive use of these [id number]-[id number] medicines and recurrent antihistamines, etc. Follow up with his doctor on an as-needed basis. He wants 10 mg prednisone one tablet daily for 5 days, so he was obliged,even though I felt a reluctance to prescribe. /[id number] KEYONNA PAIGE
== END 2017-11-30 10:01 | disposition home or self-care (01) ==
LOC: FB.ED 08:45
DX: J04.10 Acute tracheitis without obstruction (principal); R05 Cough
CPT/HCPCS: 99283

== ENCOUNTER 2017-12-21 23:26 | Emergency (ER) | payer MEDICARE, MEDICAID ==
[2017-12-21] MEDS ORDERED: Albuterol/Ipratropium 3.0-0.5 MG/3 ML Neb Soln NEB ONE (23:33)
--- NOTE | 2017-12-21 23:36 | EDM.PDOC ---
ED HPI GENERAL MEDICAL PROBLEM - General Stated Complaint: GENERAL Time Seen by Provider: 12/21/17 23:26 Source of Information: Reports: Patient History Limitations: Reports: No Limitations - History of Present Illness INITIAL COMMENTS - FREE TEXT/NARRATIVE: 32 y.o.w.m came tothe ed ed deu to prod cough, which is new to him. He quit smoking a few days ago. No F/C/V/V or any other acute medical issues. RR 22 Temp 36.8 O2 sat 98% on RA Pulse 78 Onset Date: 12/20/17 Onset Time: 07:00 Duration: Day(s):, Getting Worse, Intermittent Location: Reports: Chest Quality: Reports: Ache, Dull Severity: Mild Improves with: Reports: Rest Worsens with: Reports: Movement Context: Reports: Other (productive cough) Associated Symptoms: Reports: No Other Symptoms - Related Data Allergies Allergy/AdvReac Type Severity Reaction Status Date / Time doxycycline Allergy Blisters Verified 11/30/17 08:50 hydrocodone bitartrate Allergy Difficulty Verified 11/30/17 08:50 [From Vicodin] Breathing Home Meds: Home Meds Albuterol [Proventil Neb Soln] 2.5 mg .XX QID PRN 11/27/17 [History] predniSONE [Prednisone] 10 mg PO DAILY #10 tablet 11/30/17 [Rx] Sulfamethoxazole/Trimethoprim [Bactrim Ds Tablet] 1 each PO BID #20 tablet 12/21 [Rx] Past Medical History - Past Health History Medical/Surgical History: Denies Medical/Surgical History HEENT History: Reports: Impaired Vision, Other (See Below) Other HEENT History: Wears glasses. Cardiovascular History: Reports: Hypertension, Other (See Below) Other Cardiovascular History: Episodes of feeling heart irregularities and chest tightness. Respiratory History: Reports: Other (See Below) Other Respiratory History: Patient states he has been exposed to "Black Mold". States [facility] stated had respiratory issues. Gastrointestinal History: Reports: GERD Other Gastrointestinal History: Acid reflux. Neurological History: Reports: Concussion, Migraines Psychiatric History: Reports: Aggressive/Hostile Behaviors, Antisocial Behaviors , Anxiety, Bipolar, Depression, Learning Disability, Mood Swings, Psych Hospitalization(s), Suicide Attempt, Suicidal Ideation, Other (See Below) Other Psychiatric History: alcohol syndrome. Endocrine/Metabolic History: Reports: Hypothyroidism Other Endocrine/Metabolic History: Patient states he is borderline diabetic. Dermatologic History: Reports: Psoriasis - Infectious Disease History Infectious Disease History: Reports: Chicken Pox - Past Surgical History Other Cardiovascular Surgeries/Procedures: Patient states he had cardiac stents placed. Social & Family History - Family History Family Medical History: Noncontributory Cardiac: Reports: Angina, Hypertension, [place] Other Cardiac Family History: Father at 42 due to heart related issues. Aunts and uncles have a history of cardiac issues. Respiratory: Reports: Other (See Below) Other Respiratory Family Hisory: Lung CA. - Tobacco Use Smoking Status *Q: Former Smoker Years of Tobacco use: 2 Packs/Tins Daily: 0.2 Used Tobacco, but Quit: Yes Month Tobacco Last Used: oct Second Hand Smoke Exposure: No - Caffeine Use Caffeine Use: Reports: Coffee, Tea Caffeine Use Comment: Pt refused to answer questions - Alcohol Use Days Per Week of Alcohol Use: 1 Number of Drinks Per Day: 4 Total Drinks Per Week: 4 - Recreational Drug Use Recreational Drug Use: Yes Drug Use in Last 12 Months: Yes Recreational Drug Type: Reports: Marijuana/Hashish Other Recreational Drug Type: Denies recreational drug use. Recreational Drug Use Frequency: Weekly - Living Situation & Occupation Living situation: Reports: Single ED ROS GENERAL - Review of Systems Review Of Systems: See Below Constitutional: Reports: No Symptoms HEENT: Reports: No Symptoms Respiratory: Reports: Cough (prod) Cardiovascular: Reports: No Symptoms Endocrine: Reports: No Symptoms GI/Abdominal: Reports: No Symptoms : Reports: No Symptoms Musculoskeletal: Reports: No Symptoms Skin: Reports: No Symptoms Neurological: Reports: No Symptoms Psychiatric: Reports: No Symptoms Hematologic/Lymphatic: Reports: No Symptoms Immunologic: Reports: No Symptoms ED EXAM, GENERAL - Physical Exam Exam: See Below Exam Limited By: No Limitations General Appearance: Alert, WD/WN, Mild Distress Eye Exam: Bilateral Eye: Normal Inspection Ears: Normal External Exam Ear Exam: Bilateral Ear: Auricle Normal Nose: Normal Inspection, Normal Mucosa Throat/Mouth: Normal Inspection, Normal Lips Head: Atraumatic, Normocephalic Neck: Normal Inspection, Supple Respiratory/Chest: No Respiratory Distress, Rhonchi Cardiovascular: Normal Peripheral Pulses, Regular Rate, Rhythm GI/Abdominal: Normal Bowel Sounds (Male) Exam: Deferred Rectal (Males) Exam: Deferred Back Exam: Normal Inspection, Full Range of Motion Extremities: Normal Inspection, Normal Range of Motion, Non-Tender, No Pedal Edema Neurological: Alert, Oriented, CN II-XII Intact, Normal Cognition Psychiatric: Normal Affect, Normal Mood Skin Exam: Warm, Dry, Intact, Normal Color, No Rash Lymphatic: No Adenopathy Course - Vital Signs Text/Narrative:: 32 y.o.w.m came tothe ed ed deu to prod cough, which is new to him. He quit smoking a few days ago. No F/C/V/V or any other acute medical issues. RR 22 Temp 36.8 O2 sat 98% on RA Pulse 78 PE: WNWDWM with acute bronchitis Impression: Acute Bronchitis Tx: Duo neb, Abx Reexam: improved Plan: D/C with instructions Last Recorded V/S: Last Vital Signs Temp 36.6 C 12/21/17 23:30 Pulse 78 12/21/17 23:30 Resp 22 H 12/21/17 23:30 BP 114/78 12/21/17 23:30 Pulse Ox 100 12/21/17 23:30 - Orders/Labs/Meds Orders: Active Orders 24 hr Category Date Time Status RT Aerosol Therapy [RC] ASDIRECTED Care 12/21/17 23:33 Active Meds: Medications Discontinued Medications Generic Name Dose Route Start Last Admin Trade Name Marco A PRN Reason Stop Dose Admin Albuterol/Ipratropium 3 ml 12/21/17 23:33 12/21/17 23:43 Duoneb 3.0-0.5 Mg/3 Ml NEB 12/21/17 23:34 3 ml ONETIME ONE Administration Departure - Departure Time of Disposition: 23:34 Disposition: Home, Self-Care 01 Condition: Good Clinical Impression: Acute bronchitis - Discharge Information Prescriptions: Sulfamethoxazole/Trimethoprim [Bactrim Ds Tablet] 1 each PO BID #20 tablet Instructions: Chronic Bronchitis Referrals: PCP,None [Primary Care Provider] - Forms: ED Department Discharge Additional Instructions: Please take the Abx as recommended, please f/u come back if the symptoms get acutely worse. - My Orders Last 24 Hours: My Active Orders 12/21/17 23:33 RT Aerosol Therapy [RC] ASDIRECTED - Assessment/Plan Last 24 Hours: My Active Orders 12/21/17 23:33 RT Aerosol Therapy [RC] ASDIRECTED
[2017-12-22 00:35] VITALS: BP 114/78
== END 2017-12-21 23:55 | disposition home or self-care (01) ==
LOC: FB.ED 23:26
DX: J20.9 Acute bronchitis, unspecified (principal); I10 Essential (primary) hypertension; K21.9 Gastro-esophageal reflux disease without esophagitis; F31.9 Bipolar disorder, unspecified; E03.9 Hypothyroidism, unspecified; Z87.891 Personal history of nicotine dependence; Z79.52 Long term (current) use of systemic steroids; Z88.1 Allergy status to other antibiotic agents; Z88.5 Allergy status to narcotic agent
CPT/HCPCS: 94640; 99283; J7620

== ENCOUNTER 2018-01-17 08:11 | Emergency (ER) | payer MEDICARE, MEDICAID ==
--- NOTE | 2018-01-17 09:26 | EDM.PDOC ---
ED HPI GENERAL MEDICAL PROBLEM - General Chief Complaint: General Stated Complaint: NUMBNESS IN FACE Time Seen by Provider: 01/17/18 08:12 Source of Information: Reports: Patient History Limitations: Reports: No Limitations - History of Present Illness INITIAL COMMENTS - FREE TEXT/NARRATIVE: 32 y.o.w.m came to the ED c/o left cheek/ear pain since this am. No other acute medical issues. Vitals: Please see notes of nurses. Onset Date: 01/17/18 Onset Time: 03:00 Duration: Hour(s): Location: Reports: Face (left ear) Quality: Reports: Ache, Burning Severity: Mild Improves with: Reports: None Worsens with: Reports: None Context: Reports: Other Associated Symptoms: Reports: No Other Symptoms - Related Data Allergies Allergy/AdvReac Type Severity Reaction Status Date / Time doxycycline Allergy Blisters Verified 01/17/18 08:22 hydrocodone bitartrate Allergy Difficulty Verified 01/17/18 08:22 [From Vicodin] Breathing Home Meds: Home Meds Albuterol [Proventil Neb Soln] 2.5 mg .XX QID PRN 11/27/17 [History] Amoxicillin/Potassium Clav [Augmentin 875-125 Tablet] 1 each PO BID #20 tablet 01/17/18 [Rx] Past Medical History - Past Health History Medical/Surgical History: Denies Medical/Surgical History HEENT History: Reports: Impaired Vision, Other (See Below) Other HEENT History: Wears glasses. Cardiovascular History: Reports: Hypertension, Other (See Below) Other Cardiovascular History: Episodes of feeling heart irregularities and chest tightness. Respiratory History: Reports: Other (See Below) Other Respiratory History: Patient states he has been exposed to "Black Mold". States [facility] stated had respiratory issues. Gastrointestinal History: Reports: GERD Other Gastrointestinal History: Acid reflux. Neurological History: Reports: Concussion, Migraines Psychiatric History: Reports: Aggressive/Hostile Behaviors, Antisocial Behaviors , Anxiety, Bipolar, Depression, Learning Disability, Mood Swings, Psych Hospitalization(s), Suicide Attempt, Suicidal Ideation, Other (See Below) Other Psychiatric History: alcohol syndrome. Endocrine/Metabolic History: Reports: Hypothyroidism Other Endocrine/Metabolic History: Patient states he is borderline diabetic. Dermatologic History: Reports: Psoriasis - Infectious Disease History Infectious Disease History: Reports: Chicken Pox - Past Surgical History Other Cardiovascular Surgeries/Procedures: Patient states he had cardiac stents placed. Social & Family History - Family History Family Medical History: Noncontributory Cardiac: Reports: Angina, Hypertension, [place] Other Cardiac Family History: Father at 42 due to heart related issues. Aunts and uncles have a history of cardiac issues. Respiratory: Reports: Other (See Below) Other Respiratory Family Hisory: Lung CA. - Tobacco Use Smoking Status *Q: Former Smoker Years of Tobacco use: 3 Packs/Tins Daily: 0.2 Used Tobacco, but Quit: Yes Month/Year Tobacco Last Used: oct Second Hand Smoke Exposure: No - Caffeine Use Caffeine Use: Reports: Coffee Caffeine Use Comment: Pt refused to answer questions - Alcohol Use Days Per Week of Alcohol Use: 1 Number of Drinks Per Day: 4 Total Drinks Per Week: 4 - Recreational Drug Use Recreational Drug Use: No Drug Use in Last 12 Months: Yes Recreational Drug Type: Reports: Marijuana/Hashish Other Recreational Drug Type: Denies recreational drug use. Recreational Drug Use Frequency: Weekly - Living Situation & Occupation Living situation: Reports: Single ED ROS GENERAL - Review of Systems Review Of Systems: See Below (left ear) Constitutional: Reports: No Symptoms HEENT: Reports: Ear Pain Respiratory: Reports: No Symptoms Cardiovascular: Reports: No Symptoms Endocrine: Reports: No Symptoms GI/Abdominal: Reports: No Symptoms : Reports: No Symptoms Musculoskeletal: Reports: No Symptoms Skin: Reports: No Symptoms Neurological: Reports: No Symptoms Psychiatric: Reports: No Symptoms Hematologic/Lymphatic: Reports: No Symptoms Immunologic: Reports: No Symptoms ED EXAM, GENERAL - Physical Exam Exam: See Below Exam Limited By: Altered Mental Status General Appearance: Alert, WD/WN, No Apparent Distress Eye Exam: Bilateral Eye: Normal Inspection Ears: Normal External Exam Ear Exam: Left Ear: TM Dull, TM Red, TM Bulging Nose: Normal Inspection, Normal Mucosa Throat/Mouth: Normal Inspection, Normal Lips Head: Atraumatic, Normocephalic Neck: Normal Inspection, Supple, Non-Tender, Full Range of Motion Respiratory/Chest: No Respiratory Distress, Lungs Clear, Normal Breath Sounds, No Accessory Muscle Use, Chest Non-Tender Cardiovascular: Normal Peripheral Pulses, Regular Rate, Rhythm, No Edema, No Gallop, No JVD, No Murmur, No Rub Peripheral Pulses: 2+: Brachial (R) GI/Abdominal: Normal Bowel Sounds, Soft, Non-Tender, No Organomegaly, No Distention, No Abnormal Bruit, No Mass, Pelvis Stable (Male) Exam: Deferred Rectal (Males) Exam: Deferred Back Exam: Normal Inspection, Full Range of Motion Extremities: Normal Inspection, Normal Range of Motion, Non-Tender, No Pedal Edema, Normal Capillary Refill Neurological: Alert, Oriented, CN II-XII Intact, Normal Cognition, Normal Gait, No Motor/Sensory Deficits Psychiatric: Normal Affect, Normal Mood Skin Exam: Warm, Dry, Intact Lymphatic: No Adenopathy Course - Vital Signs Text/Narrative:: 32 y.o.w.m came to the ED c/o left cheek/ear pain since this am. No other acute medical issues. Vitals: Please see notes of nurses. PE: WNWD W M with left ear pain Impression: OM left ear Tx: Augmentin as prescription Plan: D/C with instructions Departure - Departure Time of Disposition: 09:24 Disposition: Home, Self-Care 01 Condition: Good Clinical Impression: Otitis media Qualifiers: Otitis media type: other nonsuppurative Chronicity: acute Laterality: left Recurrence: not specified as recurrent Qualified Code(s): H65.192 - Other acute nonsuppurative otitis media, left ear - Discharge Information Prescriptions: Amoxicillin/Potassium Clav [Augmentin 875-125 Tablet] 1 each PO BID #20 tablet Instructions: Amoxicillin; Clavulanic Acid tablets, Otitis Media, Adult, Easy- to-Read Referrals: PCP,None [Primary Care Provider] - Forms: ED Department Discharge Additional Instructions: Please take the Abx as recommended, please f/u with your PMFD, come back if your symptoms get worse acutely
[2018-01-17 11:45] VITALS: BP 162/72
== END 2018-01-17 10:00 | disposition home or self-care (01) ==
LOC: FB.ED 08:11
DX: H65.192 Other acute nonsuppurative otitis media, left ear (principal); I10 Essential (primary) hypertension; E03.9 Hypothyroidism, unspecified; Z87.891 Personal history of nicotine dependence; Z88.1 Allergy status to other antibiotic agents
CPT/HCPCS: 99283

== ENCOUNTER 2018-01-29 22:04 | Emergency (ER) | payer MEDICARE, MEDICAID ==
[2018-01-29 22:16] VITALS: BP 138/82
--- NOTE | 2018-01-29 22:22 | EDM.PDOC ---
ED HPI GENERAL MEDICAL PROBLEM - General Chief Complaint: General Stated Complaint: DEPRESION Time Seen by Provider: 01/29/18 22:10 Source of Information: Reports: Patient History Limitations: Reports: No Limitations - History of Present Illness INITIAL COMMENTS - FREE TEXT/NARRATIVE: c/o insominia pt started smoking to help with his sleep, has used melatonin in the past which helped some had used trazodone altho that made him sleepy during the day no SI/HI wants someone to talk to no active anxiety or bipolar sxs - Related Data Allergies Allergy/AdvReac Type Severity Reaction Status Date / Time doxycycline Allergy Blisters Verified 01/29/18 22:14 hydrocodone bitartrate Allergy Difficulty Verified 01/29/18 22:14 [From Vicodin] Breathing Home Meds: Home Meds NK [No Known Home Meds] 01/29/18 [History] Past Medical History - Past Health History Medical/Surgical History: Denies Medical/Surgical History HEENT History: Reports: Impaired Vision, Other (See Below) Other HEENT History: Wears glasses. Cardiovascular History: Reports: Hypertension, Other (See Below) Other Cardiovascular History: Episodes of feeling heart irregularities and chest tightness. Respiratory History: Reports: Other (See Below) Other Respiratory History: Patient states he has been exposed to "Black Mold". States [facility] stated had respiratory issues. Gastrointestinal History: Reports: GERD Other Gastrointestinal History: Acid reflux. Neurological History: Reports: Concussion, Migraines Psychiatric History: Reports: Aggressive/Hostile Behaviors, Antisocial Behaviors , Anxiety, Bipolar, Depression, Learning Disability, Mood Swings, Psych Hospitalization(s), Suicide Attempt, Suicidal Ideation, Other (See Below) Other Psychiatric History: alcohol syndrome. Endocrine/Metabolic History: Reports: Hypothyroidism Other Endocrine/Metabolic History: Patient states he is borderline diabetic. Dermatologic History: Reports: Psoriasis - Infectious Disease History Infectious Disease History: Reports: Chicken Pox - Past Surgical History Other Cardiovascular Surgeries/Procedures: Patient states he had cardiac stents placed. Social & Family History - Family History Family Medical History: Noncontributory Cardiac: Reports: Angina, Hypertension, [place] Other Cardiac Family History: Father at 42 due to heart related issues. Aunts and uncles have a history of cardiac issues. Respiratory: Reports: Other (See Below) Other Respiratory Family Hisory: Lung CA. - Tobacco Use Smoking Status *Q: Former Smoker Years of Tobacco use: 3 Packs/Tins Daily: 0.2 Used Tobacco, but Quit: Yes Month/Year Tobacco Last Used: oct Second Hand Smoke Exposure: No - Caffeine Use Caffeine Use: Reports: Coffee Caffeine Use Comment: Pt refused to answer questions - Alcohol Use Days Per Week of Alcohol Use: 1 Number of Drinks Per Day: 4 Total Drinks Per Week: 4 - Recreational Drug Use Recreational Drug Use: No Drug Use in Last 12 Months: Yes Recreational Drug Type: Reports: Marijuana/Hashish Other Recreational Drug Type: Denies recreational drug use. Recreational Drug Use Frequency: Weekly - Living Situation & Occupation Living situation: Reports: Single ED ROS GENERAL - Review of Systems Review Of Systems: See Below Constitutional: Reports: No Symptoms HEENT: Reports: No Symptoms Respiratory: Reports: No Symptoms Cardiovascular: Reports: No Symptoms Endocrine: Reports: No Symptoms GI/Abdominal: Reports: No Symptoms : Reports: No Symptoms Musculoskeletal: Reports: No Symptoms Skin: Reports: No Symptoms Neurological: Reports: Other (insomnia) Psychiatric: Reports: No Symptoms Hematologic/Lymphatic: Reports: No Symptoms Immunologic: Reports: No Symptoms ED EXAM, GENERAL - Physical Exam Exam: See Below Exam Limited By: No Limitations General Appearance: Alert, WD/WN, No Apparent Distress Ears: Normal External Exam Nose: Normal Inspection Throat/Mouth: Normal Inspection, Normal Voice, No Airway Compromise Head: Atraumatic, Normocephalic Neck: Normal Inspection, Supple, Non-Tender, Full Range of Motion Respiratory/Chest: No Respiratory Distress, Lungs Clear, Normal Breath Sounds, No Accessory Muscle Use, Chest Non-Tender Cardiovascular: Regular Rate, Rhythm, No Edema, No Gallop, No JVD, No Murmur, No Rub GI/Abdominal: Soft, Non-Tender Extremities: Normal Inspection, Normal Range of Motion, Non-Tender, No Pedal Edema Neurological: Alert, Oriented, CN II-XII Intact, No Motor/Sensory Deficits Psychiatric: Normal Affect, Normal Mood, Other (no SI/HI, alert, pleasant, eager to talk, no speech pressure, no delusions) Skin Exam: Warm, Dry, Intact, Normal Color, No Rash Lymphatic: No Adenopathy Departure - Departure Time of Disposition: 22:25 Disposition: Home, Self-Care 01 Condition: Good Clinical Impression: Insomnia - Discharge Information Instructions: Insomnia Referrals: PCP,None [Primary Care Provider] - Additional Instructions: May use either melatonin one tab at bedtime. Or, as an alternative, may use diphenhydramine 25 mg 2 tabs at bedtime. It is best to stop smoking. See your doctor in the next several days.
== END 2018-01-29 22:30 | disposition home or self-care (01) ==
LOC: FB.ED 22:04
DX: G47.00 Insomnia, unspecified (principal); I10 Essential (primary) hypertension; Z88.8 Allergy status to other drugs, medicaments and biological substances; Z88.5 Allergy status to narcotic agent; Z87.891 Personal history of nicotine dependence
CPT/HCPCS: 99284

== ENCOUNTER 2018-02-05 19:10 | Emergency (ER) | payer MEDICARE, MEDICAID ==
[2018-02-05 20:59] VITALS: BP 128/62
--- NOTE | 2018-02-10 09:43 | ER ---
DATE SEEN: 02/05/2018 HISTORY OF PRESENT ILLNESS: Johny comes in because he thinks he is more forgetful. He is no longer smoking. He thinks his non-smoking for the last 6 months has made him more forgetful. He wonders if he should be using magnesium. He has no shortness of breath or chest pain. No irregular heartbeat. He feels like his mind is messed up because he has spends so much time on the computer. He sleeps intermittently, and sometimes has problems with breathing. He has been walking a mile. He is no longer sprinting 10 miles or 8 miles that he used to 3 years ago. He feels more forgetful. He has had multiple examinations and hospitalizations, even cardiac workup that have been negative. He has a list of at least 30+ problems on his problem list, associated with depression, personality disorder, neck pain, migraines. He has no specific symptoms today. It is my impression, as it always has been, that he enjoys coming to the hospital because he is lonely and he likes to talk. He likes to have people listen to him. PHYSICAL EXAMINATION: GENERAL: On examination, it's the usual workings, he claims that he is doing much better because he is taking Rogaine and he is growing hair on the top of his head, and he is proud of that. HEENT: PERRLA intact. Pharynx without abnormality. NECK: Supple. No thyromegaly or masses in the neck. LUNGS: Clear without rales or rhonchi. HEART: S1, S2. No murmur. ABDOMEN: Soft. No guarding. No abdominal discomfort. EXTREMITIES: Without edema. BACK: Negative. Deep tendon reflexes normoactive in the upper and lower extremities. NEURO: Cranial nerves 2 through 12 intact. Gait intact. ASSESSMENT: 1. The patient has personality disorder. 2. The patient loves to talk. 3. The patient is lonely. 4. He has sleeping difficulties he thinks are major, but they are not significant. He has breathing troubles intermittently, but has not had any problems with this. 5. 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 30 problems. PLAN: No prescriptions were given except for he states the ketorolac helps him with his headaches. A prescription of 10 mg one q.6 hours p.r.n., 20 tablets, one refill. He can use it as needed for headache. Advised he may have some upset stomach with this and I encouraged him to be active and walk and run like he had done in the past. I told not to take it to have better health and he then challenged me that he would run on a good day 4 miles, and I said I would take him up any day. /[id number]
== END 2018-02-05 20:05 | disposition home or self-care (01) ==
LOC: FB.ED 19:10
DX: F60.9 Personality disorder, unspecified (principal); G47.9 Sleep disorder, unspecified; R06.00 Dyspnea, unspecified
CPT/HCPCS: 99284

== ENCOUNTER 2018-02-09 13:21 | Emergency (ER) | payer MEDICARE, MEDICAID ==
--- NOTE | 2018-02-09 13:48 | EDM.PDOC ---
ED HPI GENERAL MEDICAL PROBLEM - General Chief Complaint: Neuro Symptoms/Deficits Stated Complaint: HEADACHE Time Seen by Provider: 02/09/18 13:21 Source of Information: Reports: Patient History Limitations: Reports: Uncooperative - History of Present Illness INITIAL COMMENTS - FREE TEXT/NARRATIVE: 32 y.o.w.m with multiple visits to this ED, came to the ed today, by EMS, because of left sided face discomfort and neck pain, after running 3 miles yesterday, thinking he has a "Stoke". Pt was ambulating fine to the ED, refusing to give a H&P and is using swear wards when he was asked a question. Pt was in this ED by EMS on 02/05/2018 as well, for same. Pt says he may get evicted from his apartment soon. No N/V/D or any other acute medical issues. BP 135/79 RR 18 Pulse ox 100% on RA. Temp 36.6 Pulse 75 BPM. Onset Date: 02/09/18 Onset Time: 13:00 Duration: Minutes: Location: Reports: Face, Neck Quality: Reports: Ache, Dull Severity: Mild Improves with: Reports: None Worsens with: Reports: None Context: Reports: Activity Associated Symptoms: Reports: No Other Symptoms Posterior MAZA Pain Score (Numeric/FACES): 5 - Related Data Allergies Allergy/AdvReac Type Severity Reaction Status Date / Time doxycycline Allergy Blisters Verified 02/09/18 13:28 hydrocodone bitartrate Allergy Difficulty Verified 02/09/18 13:28 [From Vicodin] Breathing Home Meds: Home Meds Ketorolac [Toradol] 10 mg Q6H PRN 02/09/18 [History] Past Medical History - Past Health History Medical/Surgical History: Denies Medical/Surgical History HEENT History: Reports: Impaired Vision, Other (See Below) Other HEENT History: Wears glasses. Cardiovascular History: Reports: Hypertension, Other (See Below) Other Cardiovascular History: Episodes of feeling heart irregularities and chest tightness. Respiratory History: Reports: Other (See Below) Other Respiratory History: Patient states he has been exposed to "Black Mold". States [facility] stated had respiratory issues. Gastrointestinal History: Reports: GERD Other Gastrointestinal History: Acid reflux. Neurological History: Reports: Concussion, Migraines Psychiatric History: Reports: Aggressive/Hostile Behaviors, Antisocial Behaviors , Anxiety, Bipolar, Depression, Learning Disability, Mood Swings, Psych Hospitalization(s), Suicide Attempt, Suicidal Ideation, Other (See Below) Other Psychiatric History: alcohol syndrome. Endocrine/Metabolic History: Reports: Hypothyroidism Other Endocrine/Metabolic History: Patient states he is borderline diabetic. Dermatologic History: Reports: Psoriasis - Infectious Disease History Infectious Disease History: Reports: Chicken Pox - Past Surgical History Other Cardiovascular Surgeries/Procedures: Patient states he had cardiac stents placed. Social & Family History - Family History Family Medical History: Noncontributory Cardiac: Reports: Angina, Hypertension, [place] Other Cardiac Family History: Father at 42 due to heart related issues. Aunts and uncles have a history of cardiac issues. Respiratory: Reports: Other (See Below) Other Respiratory Family Hisory: Lung CA. - Tobacco Use Smoking Status *Q: Former Smoker Years of Tobacco use: 3 Packs/Tins Daily: 0.2 Used Tobacco, but Quit: Yes Month/Year Tobacco Last Used: dec Second Hand Smoke Exposure: No - Caffeine Use Caffeine Use: Reports: Coffee, Soda, Tea Caffeine Use Comment: Pt refused to answer questions - Alcohol Use Days Per Week of Alcohol Use: 1 Number of Drinks Per Day: 4 Total Drinks Per Week: 4 - Recreational Drug Use Recreational Drug Use: Yes Drug Use in Last 12 Months: Yes Recreational Drug Type: Reports: Marijuana/Hashish Other Recreational Drug Type: Denies recreational drug use. Recreational Drug Use Frequency: Weekly - Living Situation & Occupation Living situation: Reports: Single ED ROS GENERAL - Review of Systems Review Of Systems: Unable To Obtain (uncooperative, using swearwords) ED EXAM, NEURO - Physical Exam Exam: See Below Exam Limited By: Uncooperative General Appearance: Alert, WD/WN, No Apparent Distress Eye Exam: Bilateral Eye: Normal Inspection Ears: Normal External Exam Nose: Normal Inspection, Normal Mucosa, No Blood Throat/Mouth: Normal Inspection, Normal Lips Head Exam: Atraumatic, Normocephalic Neck: Normal Inspection, Supple, Non-Tender, Full Range of Motion Respiratory/Chest: No Respiratory Distress, Lungs Clear, Normal Breath Sounds, No Accessory Muscle Use Cardiovascular: Normal Peripheral Pulses, Regular Rate, Rhythm, No Edema, No Gallop, No JVD, No Murmur, No Rub GI/Abdominal: Normal Bowel Sounds, Soft, Non-Tender, No Organomegaly, No Distention, No Abnormal Bruit, No Mass (Male) Exam: Deferred Rectal (Males) Exam: Deferred Neurological: Alert, Normal Mood/Affect, Normal Dorsiflexion, CN II-XII Intact, Normal Plantar Flexion, Normal Gait, Oriented x 3 Back Exam: Normal Inspection, Full Range of Motion Extremities: Normal Inspection, Normal Range of Motion, Non-Tender, No Pedal Edema, Normal Capillary Refill Psychiatric: Anxious Skin Exam: Warm, Dry, Intact, Normal Color, No Rash Course - Vital Signs Text/Narrative:: .32 y.o.w.m with multiple visits to this ED, came to the ed today, by EMS, because of left sided face discomfort and neck pain, after running 3 miles yesterday, thinking he has a "Stoke". Pt was ambulating fine to the ED, refusing to give a H&P and is using swear wards when he was asked a question. Pt was in this ED by EMS on 02/05/2018 as well. Pt says he may get evicted from his apartment soon No N/V/D or any other acute medical issues. BP 135/79 RR 18 Pulse ox 100% on RA. Temp 36.6 Pulse 75 BPM. PE: 32 Y.O W Male, uncooperative, being concerned having "a stoke", using swearwords in the ED towards the staff. No focal weakness. 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 Tylenol was given in this ED Reexam: improved Plan: D/C home with instructions Last Recorded V/S: Last Vital Signs Temp 36.3 C 02/09/18 13:21 Pulse 81 02/09/18 13:21 Resp 18 02/09/18 14:21 BP 145/97 H 02/09/18 14:21 Pulse Ox 100 02/09/18 14:21 - Orders/Labs/Meds Meds: Medications Discontinued Medications Generic Name Dose Route Start Last Admin Trade Name Marco A PRN Reason Stop Dose Admin Acetaminophen 650 mg 02/09/18 13:57 02/09/18 14:33 Tylenol PO 02/09/18 13:58 Not Given ONETIME ONE Acetaminophen 650 mg 02/09/18 14:04 02/09/18 14:06 Tylenol PO 02/09/18 14:05 650 mg NOW ONE Administration Acetaminophen Confirm 02/09/18 14:02 02/09/18 14:33 Tylenol Administered 02/09/18 14:03 Not Given Dose 650 mg .ROUTE .STK-MED ONE Departure - Departure Time of Disposition: 14:00 Disposition: Home, Self-Care 01 Condition: Good Clinical Impression: Uncooperative behavior Tension type headache Qualifiers: Headache chronicity pattern: episodic headache - Discharge Information Instructions: Tension Headache, [id number] Referrals: PCP,None [Primary Care Provider] - Forms: ED Department Discharge Additional Instructions: Please continue your meds, please follow up with your regular MD, come back if your symptoms get worse acutely
[2018-02-09] MEDS ORDERED: Acetaminophen Soln 650 MG/20.3 ML UD Cup PO ONE (13:57)
[2018-02-09] MEDS ORDERED: Acetaminophen 325 MG Tab ONE (14:02)
[2018-02-09] MEDS ORDERED: Acetaminophen 325 MG Tab PO ONE (14:04)
[2018-02-09 14:50] VITALS: BP 145/97
== END 2018-02-09 14:25 | disposition home or self-care (01) ==
LOC: FB.ED 13:21
DX: G44.209 Tension-type headache, unspecified, not intractable (principal); R46.89 Other symptoms and signs involving appearance and behavior; I10 Essential (primary) hypertension; K21.9 Gastro-esophageal reflux disease without esophagitis; E03.9 Hypothyroidism, unspecified; Z88.8 Allergy status to other drugs, medicaments and biological substances; Z87.891 Personal history of nicotine dependence
CPT/HCPCS: 99284; A9270

== ENCOUNTER 2018-02-25 14:10 | Emergency (ER) | payer MEDICARE, MEDICAID ==
--- NOTE | 2018-02-25 14:32 | EDM.PDOC ---
ED HPI GENERAL MEDICAL PROBLEM - General Stated Complaint: NUMBNESS TO FACE LEFT SIDE Time Seen by Provider: 02/25/18 14:15 Source of Information: Reports: Patient History Limitations: Reports: No Limitations - History of Present Illness INITIAL COMMENTS - FREE TEXT/NARRATIVE: c/o left face numb awoke at face felt numb, went away, then came back worried he may have a pinched nerve in his neck, I explained that facial nerves come from the brain, PE is normal no other c/o, otherwise doing well - Related Data Allergies Allergy/AdvReac Type Severity Reaction Status Date / Time doxycycline Allergy Blisters Verified 02/09/18 13:28 hydrocodone bitartrate Allergy Difficulty Verified 02/09/18 13:28 [From Vicodin] Breathing Home Meds: Home Meds Ketorolac [Toradol] 10 mg Q6H PRN 02/09/18 [History] Past Medical History - Past Health History Medical/Surgical History: Denies Medical/Surgical History HEENT History: Reports: Impaired Vision, Other (See Below) Other HEENT History: Wears glasses. Cardiovascular History: Reports: Hypertension, Other (See Below) Other Cardiovascular History: Episodes of feeling heart irregularities and chest tightness. Respiratory History: Reports: Other (See Below) Other Respiratory History: Patient states he has been exposed to "Black Mold". States [facility] stated had respiratory issues. Gastrointestinal History: Reports: GERD Other Gastrointestinal History: Acid reflux. Neurological History: Reports: Concussion, Migraines Psychiatric History: Reports: Aggressive/Hostile Behaviors, Antisocial Behaviors , Anxiety, Bipolar, Depression, Learning Disability, Mood Swings, Psych Hospitalization(s), Suicide Attempt, Suicidal Ideation, Other (See Below) Other Psychiatric History: alcohol syndrome. Endocrine/Metabolic History: Reports: Hypothyroidism Other Endocrine/Metabolic History: Patient states he is borderline diabetic. Dermatologic History: Reports: Psoriasis - Infectious Disease History Infectious Disease History: Reports: Chicken Pox - Past Surgical History Other Cardiovascular Surgeries/Procedures: Patient states he had cardiac stents placed. Social & Family History - Family History Family Medical History: Noncontributory Cardiac: Reports: Angina, Hypertension, [place] Other Cardiac Family History: Father at 42 due to heart related issues. Aunts and uncles have a history of cardiac issues. Respiratory: Reports: Other (See Below) Other Respiratory Family Hisory: Lung CA. - Caffeine Use Caffeine Use: Reports: Soda Caffeine Use Comment: Pt refused to answer questions - Living Situation & Occupation Living situation: Reports: Single ED ROS GENERAL - Review of Systems Review Of Systems: See Below Constitutional: Reports: No Symptoms HEENT: Reports: No Symptoms Respiratory: Reports: No Symptoms Cardiovascular: Reports: No Symptoms Endocrine: Reports: No Symptoms GI/Abdominal: Reports: No Symptoms : Reports: No Symptoms Musculoskeletal: Reports: No Symptoms Skin: Reports: No Symptoms Neurological: Reports: Numbness Psychiatric: Reports: No Symptoms Hematologic/Lymphatic: Reports: No Symptoms Immunologic: Reports: No Symptoms ED EXAM, NEURO - Physical Exam Exam: See Below Exam Limited By: No Limitations General Appearance: Alert, WD/WN, No Apparent Distress Eye Exam: Bilateral Eye: Normal Inspection Ears: Normal External Exam, Normal Canal Nose: Normal Inspection, Normal Mucosa, No Blood Throat/Mouth: Normal Inspection, Normal Lips, Normal Teeth, Normal Gums, Normal Oropharynx, Normal Voice, No Airway Compromise Head Exam: Atraumatic, Normocephalic, Other (no numbness, nl PE) Neck: Normal Inspection, Supple, Non-Tender, Full Range of Motion, Other (FROM, no spasm, NT). No: Lymphadenopathy (R), Lymphadenopathy (L) Respiratory/Chest: No Respiratory Distress, Lungs Clear, Normal Breath Sounds, No Accessory Muscle Use, Chest Non-Tender Cardiovascular: Regular Rate, Rhythm, No Edema, No Murmur, No Rub Neurological: Alert, Normal Mood/Affect, CN II-XII Intact, Normal Gait, No Motor /Sensory Deficits, Oriented x 3 Back Exam: Normal Inspection, Full Range of Motion, NT Extremities: Normal Inspection, Normal Range of Motion, Non-Tender, No Pedal Edema Psychiatric: Normal Affect, Normal Mood, Other (baseline, no agitation, some disorganized thinking) Skin Exam: Warm, Dry, Intact, Normal Color, No Rash Departure - Departure Time of Disposition: 14:27 Disposition: Home, Self-Care 01 Condition: Good Clinical Impression: Left facial numbness - Discharge Information Referrals: PCP,None [Primary Care Provider] - Additional Instructions: Your exam and vital signs are normal. Continue current meds and treatment plans. Continue usual activities. See your doctor as scheduled.
[2018-02-25 16:10] VITALS: BP 134/81
== END 2018-02-25 14:35 | disposition home or self-care (01) ==
LOC: FB.ED 14:10
DX: R20.0 Anesthesia of skin (principal); I10 Essential (primary) hypertension; L40.9 Psoriasis, unspecified; Z88.8 Allergy status to other drugs, medicaments and biological substances
CPT/HCPCS: 99282

== ENCOUNTER 2018-02-26 21:05 | Emergency (ER) | payer MEDICARE, MEDICAID ==
[2018-02-26] MEDS ORDERED: Ibuprofen 600 MG Tab PO ONE (23:47)
--- NOTE | 2018-02-27 00:10 | EDM.PDOC ---
ED HPI GENERAL MEDICAL PROBLEM - General Chief Complaint: General Stated Complaint: DEHYDRATED PER PATIENT Time Seen by Provider: 02/26/18 23:30 Source of Information: Reports: Patient History Limitations: Reports: No Limitations - History of Present Illness INITIAL COMMENTS - FREE TEXT/NARRATIVE: c/o dehydration pt came in with c/o dehydration, then it changed to a MAZA x 1w he was in good spirits and overall seemed to be doing well he appeared to want some reassurance and to have someone to talk to he says he is planning on moving to [place] in 1 wk, that there is girl there named Aleena that he has known for 3y and that it is time that she "should put a face" to a name, his story does note seem entirely accurate - Related Data Allergies Allergy/AdvReac Type Severity Reaction Status Date / Time doxycycline Allergy Blisters Verified 02/26/18 21:17 hydrocodone bitartrate Allergy Difficulty Verified 02/26/18 21:17 [From Vicodin] Breathing Home Meds: Home Meds FLUoxetine HCl [Prozac] 20 mg PO DAILY 02/25/18 [History] Past Medical History - Past Health History Medical/Surgical History: Denies Medical/Surgical History HEENT History: Reports: Impaired Vision, Other (See Below) Other HEENT History: Wears glasses. Cardiovascular History: Reports: Hypertension, Other (See Below) Other Cardiovascular History: Episodes of feeling heart irregularities and chest tightness. Respiratory History: Reports: Other (See Below) Other Respiratory History: Patient states he has been exposed to "Black Mold". States [facility] stated had respiratory issues. Gastrointestinal History: Reports: GERD Other Gastrointestinal History: Acid reflux. Neurological History: Reports: Concussion, Migraines Psychiatric History: Reports: Aggressive/Hostile Behaviors, Antisocial Behaviors , Anxiety, Bipolar, Depression, Learning Disability, Mood Swings, Psych Hospitalization(s), Suicide Attempt, Suicidal Ideation, Other (See Below) Other Psychiatric History: alcohol syndrome. Endocrine/Metabolic History: Reports: Hypothyroidism Other Endocrine/Metabolic History: Patient states he is borderline diabetic. Dermatologic History: Reports: Psoriasis - Infectious Disease History Infectious Disease History: Reports: Chicken Pox - Past Surgical History Other Cardiovascular Surgeries/Procedures: Patient states he had cardiac stents placed. Social & Family History - Family History Family Medical History: Noncontributory Cardiac: Reports: Angina, Hypertension, [place] Other Cardiac Family History: Father at 42 due to heart related issues. Aunts and uncles have a history of cardiac issues. Respiratory: Reports: Other (See Below) Other Respiratory Family Hisory: Lung CA. - Tobacco Use Smoking Status *Q: Former Smoker Used Tobacco, but Quit: Yes Month/Year Tobacco Last Used: 24 - Caffeine Use Caffeine Use: Reports: Coffee Caffeine Use Comment: Pt refused to answer questions - Recreational Drug Use Recreational Drug Use: No - Living Situation & Occupation Living situation: Reports: Single ED ROS GENERAL - Review of Systems Review Of Systems: See Below Constitutional: Reports: No Symptoms HEENT: Reports: No Symptoms Respiratory: Reports: No Symptoms Cardiovascular: Reports: No Symptoms Endocrine: Reports: No Symptoms GI/Abdominal: Reports: No Symptoms : Reports: No Symptoms Musculoskeletal: Reports: No Symptoms Skin: Reports: No Symptoms Neurological: Reports: Headache Psychiatric: Reports: No Symptoms Hematologic/Lymphatic: Reports: No Symptoms Immunologic: Reports: No Symptoms ED EXAM, GENERAL - Physical Exam Exam: See Below General Appearance: Alert, WD/WN, No Apparent Distress, Other (cheerful, friendly, cooperative, no agitation) Nose: Normal Inspection, Normal Mucosa, No Blood Throat/Mouth: Normal Inspection, Normal Voice, No Airway Compromise Head: Atraumatic, Normocephalic Neck: Normal Inspection, Supple, Non-Tender, Full Range of Motion Respiratory/Chest: No Respiratory Distress, Lungs Clear, Normal Breath Sounds, No Accessory Muscle Use, Chest Non-Tender Cardiovascular: Regular Rate, Rhythm, No Edema, No Gallop, No Murmur, No Rub Peripheral Pulses: 1+: Dorsalis Pedis (R) GI/Abdominal: Soft, Non-Tender, No Distention Back Exam: Normal Inspection, Full Range of Motion, NT Extremities: Normal Inspection, Normal Range of Motion, Non-Tender, No Pedal Edema Neurological: Alert, Oriented, CN II-XII Intact, Normal Cognition, Normal Gait, No Motor/Sensory Deficits Psychiatric: Other (baseline cognitive function) Skin Exam: Warm Lymphatic: No Adenopathy Course - Vital Signs Last Recorded V/S: Last Vital Signs Temp 36.4 C 02/26/18 21:05 Pulse 54 L 02/26/18 21:05 Resp 18 02/26/18 21:05 BP 114/73 02/26/18 21:05 Pulse Ox 100 02/26/18 21:05 - Orders/Labs/Meds Meds: Medications Discontinued Medications Generic Name Dose Route Start Last Admin Trade Name Marco A PRN Reason Stop Dose Admin Ibuprofen 600 mg 02/26/18 23:47 02/26/18 23:53 Motrin PO 02/26/18 23:48 600 mg ONETIME ONE Administration Departure - Departure Time of Disposition: 00:08 Disposition: Home, Self-Care 01 Condition: Good Clinical Impression: Tension headache - Discharge Information Instructions: Tension Headache, Adult Referrals: PCP,None [Primary Care Provider] - Additional Instructions: If you still have a headache when you wake up tomorrow, take ibuprofen 200 mg 3 tabs in the morning, in the afternoon and in the evening tomorrow. Continue usual activities.
[2018-02-27 00:30] VITALS: BP 111/53
== END 2018-02-27 00:20 | disposition home or self-care (01) ==
LOC: FB.ED 21:05
DX: G44.209 Tension-type headache, unspecified, not intractable (principal); Z88.6 Allergy status to analgesic agent; Z79.899 Other long term (current) drug therapy; Z87.891 Personal history of nicotine dependence; Z88.8 Allergy status to other drugs, medicaments and biological substances
CPT/HCPCS: 99283; A9270-GY

== ENCOUNTER 2018-03-02 18:56 | Emergency (ER) | payer MEDICARE, MEDICAID ==
[2018-03-02 19:18] VITALS: BP 117/70
--- NOTE | 2018-03-03 14:43 | ER ---
DATE SEEN: 03/02/2018 TIME SEEN: The patient was seen at 1940 hours. HISTORY OF PRESENT ILLNESS: The patient complains of shortness of breath and coughing. He feels his lungs have been congested in the last 3 to 4 days. No recent fever. He denies tachypnea. Denies shortness of breath, air hunger or asthma. He has not smoked for 6 months. At one point, he did run 4 to 8 miles a day until he was beginning to have chest congestion and some chest pain and is thought to have cardiac disease. He has had cardiac evaluations, which has been found to be negative. He notes that he has not been sleeping because he is coughing and "congestion" makes it hard for him to breathe. The patient has never been worked up for allergies. He does have allergy to doxycycline and hydrocodone. He states the symptoms become more prominent in the Spring. Denies eye itching, but has mild rhinorrhea. He has a cascade of multiple abnormalities and I noted this in the range of 30+ problems on the problem list. Most notably are bipolar disorder, migraines, anxiety, nonspecific chest pain, that is not cardiac etiology. REVIEW OF SYSTEMS: Otherwise negative, except as noted above. PHYSICAL EXAMINATION: VITAL SIGNS: Blood pressure 117/70, heart rate 71 and regular, respirations 16, oxygen saturation 99%, and temperature is 36.7 degrees centigrade. HEENT: Has very notable turbinate bogginess and swelling, 50% larger than anticipated. They are not juxtaposing to the septum mucosa. Sinuses nontender with pressure. EOMs normal. Pharynx without abnormality. Moist mucosa noted. Uvula midline. No tympanic abnormality. NECK: No cervical adenopathy, thyromegaly, or masses in the neck. LUNGS: Clear without rales, rhonchi, or wheezes. HEART: S1, S2. No murmur. ABDOMEN: Soft. No guarding. No abdominal discomfort. EXTREMITIES: Without edema. No vascular tenderness, lower extremities. Deep tendon reflexes normoactive. NEUROLOGIC: The patient is alert with appropriate muscle strength. LABORATORY DATA: No laboratory tests were performed. ASSESSMENT: 1. The patient has multiple specific complaints always when he comes in. 2. Today's examination suggests he has seasonal allergic rhinitis, which has to-date not been acknowledged or diagnosed. 3. It is very possible that some of his symptoms of coughing in the past have been related to allergic pulmonary response. PLAN: 1. Trial of prednisone 20 mg daily for 5 days. If this works, then he can try using Flonase 1 spray in each nostril daily. Follow up with his doctor in a week. 2. The patient states that he is going to be moving to [place], and he acknowledged his remorse of leaving, but he thought he would start a new life in [place]. He gave me the greatest big hug as a thank you for the care I provided in [place]. /[id number] ALBERT/CHEN
== END 2018-03-02 21:10 | disposition home or self-care (01) ==
LOC: FB.ED 18:56
DX: J30.9 Allergic rhinitis, unspecified (principal)
CPT/HCPCS: 99282

== ENCOUNTER 2018-03-07 10:04 | Emergency (ER) | payer MEDICARE, MEDICAID ==
--- NOTE | 2018-03-07 11:05 | EDM.PDOC ---
ED HPI GENERAL MEDICAL PROBLEM - General Chief Complaint: Respiratory Problem Stated Complaint: INFECTION Time Seen by Provider: 03/07/18 11:01 Source of Information: Reports: Patient History Limitations: Reports: No Limitations - History of Present Illness INITIAL COMMENTS - FREE TEXT/NARRATIVE: Complains of cough and congestion x 2 years. No improvement with Prednisone and Flonase. Had been treated with antibiotics in the past with improvement but not with resolution. Patient requests prescription for an antibiotic. Severity: Mild - Related Data Allergies Allergy/AdvReac Type Severity Reaction Status Date / Time doxycycline Allergy Blisters Verified 03/02/18 19:30 hydrocodone bitartrate Allergy Difficulty Verified 03/02/18 19:30 [From Vicodin] Breathing Home Meds: Home Meds FLUoxetine HCl [Prozac] 20 mg PO DAILY 02/25/18 [History] Fluticasone Propionate [Flonase] 16 gm NS DAILY #1 bottle 03/02/18 [Rx] predniSONE [Prednisone] 20 mg PO DAILY 5 Days #5 tablet 03/02/18 [Rx] Azithromycin [Zithromax] 250 mg PO DAILY #6 tab 03/07/18 [Rx] Past Medical History - Past Health History Medical/Surgical History: Denies Medical/Surgical History HEENT History: Reports: Impaired Vision, Other (See Below) Other HEENT History: Wears glasses. Cardiovascular History: Reports: Hypertension, Other (See Below) Other Cardiovascular History: Episodes of feeling heart irregularities and chest tightness. Respiratory History: Reports: Other (See Below) Other Respiratory History: Patient states he has been exposed to "Black Mold". States [facility] stated had respiratory issues. Gastrointestinal History: Reports: GERD Other Gastrointestinal History: Acid reflux. Neurological History: Reports: Concussion, Migraines Psychiatric History: Reports: Aggressive/Hostile Behaviors, Antisocial Behaviors , Anxiety, Bipolar, Depression, Learning Disability, Mood Swings, Psych Hospitalization(s), Suicide Attempt, Suicidal Ideation, Other (See Below) Other Psychiatric History: alcohol syndrome. Endocrine/Metabolic History: Reports: Hypothyroidism Other Endocrine/Metabolic History: Patient states he is borderline diabetic. Dermatologic History: Reports: Psoriasis - Infectious Disease History Infectious Disease History: Reports: Chicken Pox - Past Surgical History Other Cardiovascular Surgeries/Procedures: Patient states he had cardiac stents placed. Social & Family History - Family History Family Medical History: Noncontributory Cardiac: Reports: Angina, Hypertension, [place] Other Cardiac Family History: Father at 42 due to heart related issues. Aunts and uncles have a history of cardiac issues. Respiratory: Reports: Other (See Below) Other Respiratory Family Hisory: Lung CA. - Tobacco Use Smoking Status *Q: Former Smoker Tobacco Use Within Last Twelve Months: Cigarettes Used Tobacco, but Quit: Yes Month/Year Tobacco Last Used: Quit 6 months ago - Caffeine Use Caffeine Use: Reports: Coffee Caffeine Use Comment: Pt refused to answer questions - Living Situation & Occupation Living situation: Reports: Single ED ROS GENERAL - Review of Systems Review Of Systems: See Below Constitutional: Reports: No Symptoms HEENT: Reports: Other (nasal congestion) Respiratory: Reports: Cough Cardiovascular: Reports: No Symptoms Endocrine: Reports: No Symptoms GI/Abdominal: Reports: No Symptoms : Reports: No Symptoms Musculoskeletal: Reports: No Symptoms Skin: Reports: No Symptoms Neurological: Reports: No Symptoms Psychiatric: Reports: No Symptoms Hematologic/Lymphatic: Reports: No Symptoms Immunologic: Reports: No Symptoms ED EXAM, GENERAL - Physical Exam Exam: See Below Exam Limited By: No Limitations General Appearance: Alert, WD/WN, No Apparent Distress Nose: No Blood Throat/Mouth: Normal Inspection, Normal Lips, Normal Teeth, Normal Gums, Normal Oropharynx, Normal Voice, No Airway Compromise Head: Atraumatic, Normocephalic Neck: Normal Inspection, Supple, Full Range of Motion Respiratory/Chest: No Respiratory Distress, Lungs Clear, Normal Breath Sounds, No Accessory Muscle Use Cardiovascular: Regular Rate, Rhythm, No Gallop, No JVD, No Murmur, No Rub GI/Abdominal: No Distention (Male) Exam: Deferred Rectal (Males) Exam: Deferred Extremities: Normal Range of Motion Neurological: Alert, Oriented, Normal Cognition, Normal Gait, No Motor/Sensory Deficits Psychiatric: Normal Affect, Normal Mood Skin Exam: Warm, Dry, Intact, Normal Color Course - Vital Signs Last Recorded V/S: Last Vital Signs Temp 35.7 C 03/07/18 11:04 Pulse 77 03/07/18 11:04 Resp 16 03/07/18 11:04 BP 136/94 H 03/07/18 11:04 Pulse Ox 100 03/07/18 11:04 - Orders/Labs/Meds Orders: Active Orders 24 hr Category Date Time Status CXR [Chest 2V] [CR] Stat Exams 03/07/18 10:59 Taken - Radiology Interpretation Free Text/Narrative:: CXR: NAD Departure - Departure Time of Disposition: 12:04 Disposition: Home, Self-Care 01 Condition: Good Clinical Impression: Bronchitis - Discharge Information Prescriptions: Azithromycin [Zithromax] 250 mg PO DAILY #6 tab Instructions: Acute Bronchitis, Adult, [id number] Referrals: PCP,None [Primary Care Provider] - Forms: ED Department Discharge Additional Instructions: Take OTC Mucinex as needed. Follow up with your primary doctor in 2-3 days. - My Orders Last 24 Hours: My Active Orders 03/07/18 10:59 CXR [Chest 2V] [CR] Stat - Assessment/Plan Last 24 Hours: My Active Orders 03/07/18 10:59 CXR [Chest 2V] [CR] Stat
[2018-03-07 11:06] VITALS: BP 136/94
--- NOTE | 2018-03-07 15:16 | CR ---
INDICATION: Cough. CHEST: PA and lateral views of the chest 03/07/2018 were compared with 2016 and 07/29/2016. Allowing for increased inspiration, little interval change is noted compared with the previous examination with no definite active disease - a definite active infiltrate or effusion was not seen. Heart, mediastinum, and bony thorax remain unremarkable. There is suggestion of bronchial wall cuffing at the lung bases, which may be on the basis of active peribronchial disease and should be correlated clinically. IMPRESSION: No definite active disease. However, there does appear to be bronchial wall cuffing at the lung bases, which may be on the basis of active peribronchial disease and/or fibrosis and should be correlated clinically. MTDD
== END 2018-03-07 12:15 | disposition home or self-care (01) ==
LOC: FB.ED 10:04
DX: J40 Bronchitis, not specified as acute or chronic (principal); I10 Essential (primary) hypertension; E03.9 Hypothyroidism, unspecified; K21.9 Gastro-esophageal reflux disease without esophagitis; Z88.1 Allergy status to other antibiotic agents; Z88.5 Allergy status to narcotic agent; Z79.899 Other long term (current) drug therapy; Z87.891 Personal history of nicotine dependence
CPT/HCPCS: 71046; 99283

== ENCOUNTER 2018-03-23 02:31 | Emergency (ER) | payer MEDICARE, MEDICAID ==
[2018-03-23] MEDS ORDERED: Albuterol/Ipratropium 3.0-0.5 MG/3 ML Neb Soln NEB ONE (02:56)
[2018-03-23] MEDS ORDERED: Albuterol/Ipratropium 3.0-0.5 MG/3 ML Neb Soln INH ONE (02:58)
--- NOTE | 2018-03-23 03:36 | ER ---
DATE SEEN: 03/23/2018 REASON FOR VISIT: Difficulty breathing. HISTORY OF PRESENT ILLNESS: This is a 32-year-old male, who comes in because of cough, difficulty breathing. He complains that he is unable to get out of bed and feels like he has given up in life. He has lost 38 pounds and been very nervous and anxious. Quit taking his medications recently. He has a cough despite quitting smoking several weeks ago, but no fever. The cough is nonproductive. He has a nebulizer. He is out of the DuoNeb. REVIEW OF SYSTEMS: He denies chest pain. No headache, nausea, or vomiting. CURRENT MEDICATIONS: Updated on [facility]. ALLERGIES: Updated on Epic. PHYSICAL EXAMINATION: GENERAL: He is not in any cardiopulmonary distress. VITAL SIGNS: He has normal vital signs. ENT: Negative. CHEST: Clear. CARDIOVASCULAR: Normal. MENTAL STATUS: Normal affect. Lacks insight, but memory and judgment are intact. IMPRESSION: 1. Acute bronchitis. 2. Generalized anxiety disorder. PLAN: 1. DuoNeb x1 dose. 2. I had sent some home to use every 6 hours p.r.n. and advised him to make an appointment and a strong relationship with a primary care physician to continue with his treatment. /[id number] ALLISON/CHEN
[2018-03-23 03:50] VITALS: BP 128/76
== END 2018-03-23 03:32 | disposition home or self-care (01) ==
LOC: FB.ED 02:31
DX: J20.9 Acute bronchitis, unspecified (principal); F41.1 Generalized anxiety disorder
CPT/HCPCS: 94640; 99282; J7620

== ENCOUNTER 2018-03-31 04:38 | Emergency (ER) | payer MEDICARE, MEDICAID ==
[2018-03-31] MEDS ORDERED: hydrOXYzine HCl 50 MG/ML SDV IM ONE (04:53)
[2018-03-31] MEDS ORDERED: Ketorolac 60 MG/2 ML SDV IM ONE (04:53)
[2018-03-31 08:03] VITALS: BP 130/60
--- NOTE | 2018-03-31 08:08 | ER ---
DATE SEEN: 03/31/2018 CHIEF COMPLAINT: Headache. HISTORY OF PRESENT ILLNESS: This is a 32-year-old male who was brought in by the ambulance because of a headache. He describes a sudden onset of global headache that woke him out of bed. Nothing seems to improve it, but any movement whatsoever, including the neck, makes the headache worse. He did not take anything to relieve the pain. He has a complicated history that includes cervicogenic headache; neuralgia, anxiety; bipolar I; suicidal ideation; chest pain, atypical; and has had multiple visits to the emergency room in the last couple of years. REVIEW OF SYSTEMS: He denies any fever. There is no report of any vomiting. No chest pain. No visual disturbance. SOCIAL HISTORY: Noncontributory. He lives alone. He is a smoker. PHYSICAL EXAMINATION: HEAD: Normal size. No obvious signs of trauma. PUPILS: I am unable to check his pupils. NECK: Soft to touch with no tenderness, but he does not want to move it. MENTAL STATUS: He is belligerent and uncooperative. LABS: None. IMPRESSION: 1. Cervicalgia and headache. 2. Anxiety. PLAN: I gave him Vistaril and Toradol IM to control his headache. I attempted to obtain a CT of the head, but the patient was uncooperative and could not lay down. At the time of this dictation, he is resting in the exam room, holding his head to the knees. I will transfer care to Dr. Stokes, who comes after me, to continue care. /[id number] ALLISON/CHEN
[2018-03-31] MEDS ORDERED: Acetaminophen 325 MG Tab PO ONE (08:16)
--- NOTE | 2018-03-31 08:25 | EDM.PDOC ---
ED HPI GENERAL MEDICAL PROBLEM - General Chief Complaint: Headache Stated Complaint: L sided neck pain with headache Time Seen by Provider: 03/31/18 07:10 Source of Information: Reports: Patient, EMS, Old Records, Other (Off shift ED physician) History Limitations: Reports: No Limitations - History of Present Illness INITIAL COMMENTS - FREE TEXT/NARRATIVE: Johny is interviewed since admission to [facility] ED earlier this am with sxs of L sided neck pain and accompanying headache. His examination was nonfocal. A Head CT noncontrast was ordered, but patient refused to cooperate. He was administered Toradol 30 mg and Vistarili 50 mg IM, and placed on a guerney to sleep. I interviewed Johny shortly after 0710 this am. His headache and L sided neck pain have improved, but he expressed concern that his sxs would relapse. I reassured him that OTC analgesics for his neck pain and headache would be sufficient. He expressed willingness to return home, with follow up if needed. - Related Data Allergies Allergy/AdvReac Type Severity Reaction Status Date / Time doxycycline Allergy Blisters Verified 03/31/18 04:54 hydrocodone bitartrate Allergy Difficulty Verified 03/31/18 04:54 [From Vicodin] Breathing Home Meds: Home Meds FLUoxetine HCl [Prozac] 20 mg PO DAILY 02/25/18 [History] Fluticasone Propionate [Flonase] 16 gm NS DAILY #1 bottle 03/02/18 [Rx] predniSONE [Prednisone] 20 mg PO DAILY 5 Days #5 tablet 03/02/18 [Rx] Past Medical History - Past Health History Medical/Surgical History: Denies Medical/Surgical History HEENT History: Reports: Impaired Vision, Other (See Below) Other HEENT History: Wears glasses. Cardiovascular History: Reports: Hypertension, Other (See Below) Other Cardiovascular History: Hx of heart irregularities and chest tightness. Respiratory History: Reports: Other (See Below) Other Respiratory History: Patient states he has been exposed to "Black Mold". Hx respiratory issues, non specified. Gastrointestinal History: Reports: GERD Other Gastrointestinal History: Acid reflux. Neurological History: Reports: Concussion, Migraines Psychiatric History: Reports: Aggressive/Hostile Behaviors, Antisocial Behaviors , Anxiety, Bipolar, Depression, Learning Disability, Mood Swings, Psych Hospitalization(s), Suicide Attempt, Suicidal Ideation, Other (See Below) Other Psychiatric History: alcohol syndrome. Endocrine/Metabolic History: Reports: Hypothyroidism Other Endocrine/Metabolic History: Patient states he is borderline diabetic. Dermatologic History: Reports: Psoriasis - Infectious Disease History Infectious Disease History: Reports: Chicken Pox - Past Surgical History Other Cardiovascular Surgeries/Procedures: Patient states he had cardiac stents placed. Social & Family History - Family History Family Medical History: Noncontributory Cardiac: Reports: Angina, Hypertension, [place] Other Cardiac Family History: Father at 42 due to heart related issues. Aunts and uncles have a history of cardiac issues. Respiratory: Reports: Other (See Below) Other Respiratory Family Hisory: Lung CA. - Tobacco Use Smoking Status *Q: Former Smoker Used Tobacco, but Quit: No - Caffeine Use Caffeine Use: Reports: Coffee, Tea Caffeine Use Comment: Pt refused to answer questions - Living Situation & Occupation Living situation: Reports: Single ED ROS GENERAL - Review of Systems Review Of Systems: ROS reveals no pertinent complaints other than HPI. ED EXAM, GENERAL - Physical Exam Exam: See Below Exam Limited By: No Limitations General Appearance: Alert, WD/WN, No Apparent Distress Eye Exam: Bilateral Eye: EOMI, Normal Inspection, PERRL Ears: Normal External Exam, Normal TMs Nose: Normal Inspection Throat/Mouth: Normal Inspection, Normal Voice Head: Atraumatic, Normocephalic Neck: Normal Inspection, Supple, Tender Lateral (left, with mild spasm, limited guarding to maneuver) Respiratory/Chest: No Respiratory Distress, Lungs Clear, Normal Breath Sounds, No Accessory Muscle Use, Chest Non-Tender Cardiovascular: Normal Peripheral Pulses, Regular Rate, Rhythm, No Edema, No Gallop, No Murmur Back Exam: Normal Inspection Extremities: Normal Inspection, Normal Range of Motion, Non-Tender, No Pedal Edema Neurological: Alert, Oriented, CN II-XII Intact, Normal Cognition, No Motor/ Sensory Deficits Psychiatric: Normal Affect, Anxious Skin Exam: Warm, Dry, Intact, Normal Color, No Rash Lymphatic: No Adenopathy Course - Vital Signs Text/Narrative:: Johny initially refused to leave the ED, and operation shift supervisor signed patient over to me. I interviewed and examined Johny shortly after coming onto shift, and Johny reported that L sided neck pain and headache had improved with the medication. He expressed concern that sxs would relapse, and I administered Tylenol 650 mg po before discharge. Last Recorded V/S: Last Vital Signs Temp 35.8 C 03/31/18 07:58 Pulse 73 03/31/18 07:58 Resp 16 03/31/18 07:58 BP 130/60 03/31/18 07:58 Pulse Ox 100 03/31/18 07:58 - Orders/Labs/Meds Orders: Active Orders 24 hr Category Date Time Status Head wo Cont [CT] Stat Exams 03/31/18 04:51 Ordered Meds: Medications Discontinued Medications Generic Name Dose Route Start Last Admin Trade Name Marco A PRN Reason Stop Dose Admin Acetaminophen 650 mg 03/31/18 08:16 Tylenol PO 03/31/18 08:17 NOW ONE Hydroxyzine HCl 50 mg 03/31/18 04:53 03/31/18 05:07 Vistaril IM 03/31/18 04:54 50 mg ONETIME ONE Administration Ketorolac Tromethamine 60 mg 03/31/18 04:53 03/31/18 05:07 Toradol IM 03/31/18 04:54 60 mg ONETIME ONE Administration Departure - Departure Time of Disposition: 08:00 Disposition: Home, Self-Care 01 Condition: Fair Clinical Impression: Cervicalgia - Discharge Information Referrals: PCP,None [Primary Care Provider] - - Problem List & Annotations (1) Cervicalgia SNOMED Code(s): 36961984 Code(s): M54.2 - CERVICALGIA Status: Acute Current Visit: Yes Annotation/Comment:: I suggested heat, rest, and analgesics OTC such as Tylenol or Ibuprofen, and gentle ROM. (2) Tension headache SNOMED Code(s): 267578802 Code(s): G44.209 - TENSION-TYPE HEADACHE, UNSPECIFIED, NOT INTRACTABLE Status: Acute Current Visit: No Annotation/Comment:: I suggested rest, OTC analgesics such as Tylenol or Ibuprofen, and follow up if needed. - Problem List Review Problem List Initiated/Reviewed/Updated: Yes - Assessment/Plan Plan: Follow up with PCP if needed.
== END 2018-03-31 08:26 | disposition home or self-care (01) ==
LOC: FB.ED 04:38
DX: M54.2 Cervicalgia (principal); I10 Essential (primary) hypertension; Z88.8 Allergy status to other drugs, medicaments and biological substances; Z79.899 Other long term (current) drug therapy; Z87.891 Personal history of nicotine dependence
CPT/HCPCS: 96372; 99284; A9270; J1885; J3410

== ENCOUNTER 2018-04-01 12:08 | Emergency (ER) | payer MEDICARE, MEDICAID ==
--- NOTE | 2018-04-01 12:55 | EDM.PDOC ---
ED HPI GENERAL MEDICAL PROBLEM - General Chief Complaint: Respiratory Problem Stated Complaint: COUGH Time Seen by Provider: 04/01/18 12:30 Source of Information: Reports: Patient, Old Records History Limitations: Reports: No Limitations - History of Present Illness INITIAL COMMENTS - FREE TEXT/NARRATIVE: Johny returns to [facility] ED with a 24 hr hx of some productive cough of green tinged sputa, hoarseness, and malaise. He was exposed to an uncle with cold sxs recently. There is no headache, neckache, chest pain or SOB. He has tried no meds. - Related Data Allergies Allergy/AdvReac Type Severity Reaction Status Date / Time doxycycline Allergy Blisters Verified 03/31/18 04:54 hydrocodone bitartrate Allergy Difficulty Verified 03/31/18 04:54 [From Vicodin] Breathing Home Meds: Home Meds FLUoxetine HCl [Prozac] 20 mg PO DAILY 02/25/18 [History] Amoxicillin/Potassium Clav [Augmentin 875-125 Tablet] 1 each PO BID #10 tablet 04/01/18 [Rx] Fluticasone Propionate [Flonase] 1 spray NS DAILY 04/01/18 [History] Past Medical History - Past Health History Medical/Surgical History: Denies Medical/Surgical History HEENT History: Reports: Impaired Vision, Other (See Below) Other HEENT History: Wears glasses. Cardiovascular History: Reports: Hypertension, Other (See Below) Other Cardiovascular History: Hx of heart irregularities and chest tightness. Respiratory History: Reports: Other (See Below) Other Respiratory History: Patient states he has been exposed to "Black Mold". Hx respiratory issues, non specified. Gastrointestinal History: Reports: GERD Other Gastrointestinal History: Acid reflux. Neurological History: Reports: Concussion, Migraines Psychiatric History: Reports: Aggressive/Hostile Behaviors, Antisocial Behaviors , Anxiety, Bipolar, Depression, Learning Disability, Mood Swings, Psych Hospitalization(s), Suicide Attempt, Suicidal Ideation, Other (See Below) Other Psychiatric History: alcohol syndrome. Endocrine/Metabolic History: Reports: Hypothyroidism Other Endocrine/Metabolic History: Patient states he is borderline diabetic. Dermatologic History: Reports: Psoriasis - Infectious Disease History Infectious Disease History: Reports: Chicken Pox - Past Surgical History Other Cardiovascular Surgeries/Procedures: Patient states he had cardiac stents placed. Social & Family History - Family History Family Medical History: Noncontributory Cardiac: Reports: Angina, Hypertension, [place] Other Cardiac Family History: Father at 42 due to heart related issues. Aunts and uncles have a history of cardiac issues. Respiratory: Reports: Other (See Below) Other Respiratory Family Hisory: Lung CA. - Caffeine Use Caffeine Use: Reports: Coffee, Tea Caffeine Use Comment: Pt refused to answer questions - Living Situation & Occupation Living situation: Reports: Single ED ROS GENERAL - Review of Systems Review Of Systems: ROS reveals no pertinent complaints other than HPI. ED EXAM, GENERAL - Physical Exam Exam: See Below Exam Limited By: No Limitations General Appearance: Alert, WD/WN, No Apparent Distress Eye Exam: Bilateral Eye: EOMI, Normal Inspection, PERRL Ears: Normal External Exam Nose: Normal Inspection Throat/Mouth: Normal Inspection, Normal Lips, Normal Teeth, Normal Gums, Normal Oropharynx, Normal Voice, No Airway Compromise Head: Normocephalic Neck: Normal Inspection, Supple, Non-Tender, Full Range of Motion Respiratory/Chest: No Respiratory Distress, No Accessory Muscle Use, Rhonchi Cardiovascular: Regular Rate, Rhythm, No Murmur Back Exam: Normal Inspection Extremities: Normal Inspection Neurological: Alert, Oriented, CN II-XII Intact, Normal Cognition, Normal Gait, No Motor/Sensory Deficits Psychiatric: Normal Affect, Anxious Skin Exam: Warm, Dry Lymphatic: No Adenopathy Course - Vital Signs Text/Narrative:: Johny remained stable during ED visit. No meds were administered. He reported that he will be admitted to [facility] in [place], [place] tomorrow for treatment of his mental health issues. He has been off psychotrophic mids for a year. Departure - Departure Time of Disposition: 12:54 Disposition: Home, Self-Care 01 Condition: Fair Clinical Impression: Acute bronchitis - Discharge Information Prescriptions: Amoxicillin/Potassium Clav [Augmentin 875-125 Tablet] 1 each PO BID #10 tablet Referrals: PCP,Not In Area [Primary Care Provider] - - Problem List & Annotations (1) Acute bronchitis SNOMED Code(s): 70081434 Code(s): J20.9 - ACUTE BRONCHITIS, UNSPECIFIED Status: Acute Current Visit: Yes Onset Date: 06/03/14 Annotation/Comment:: I dispensed Augmentin Cr 875 bid for 5 days. He will follow with providers at [facility] later this week. - Problem List Review Problem List Initiated/Reviewed/Updated: Yes - Assessment/Plan Plan: Follow up at [facility] in [place], [place].
[2018-04-01 14:26] VITALS: BP 128/62
== END 2018-04-01 13:15 | disposition home or self-care (01) ==
LOC: FB.ED 12:08
DX: J20.9 Acute bronchitis, unspecified (principal); Z88.8 Allergy status to other drugs, medicaments and biological substances; Z79.899 Other long term (current) drug therapy; E03.9 Hypothyroidism, unspecified
CPT/HCPCS: 99283

== ENCOUNTER 2018-04-03 20:26 | Emergency (ER) | payer MEDICARE, MEDICAID ==
--- NOTE | 2018-04-03 20:47 | EDM.PDOC ---
ED HPI GENERAL MEDICAL PROBLEM - General Chief Complaint: Respiratory Problem Stated Complaint: COUGH Time Seen by Provider: 04/03/18 20:35 Source of Information: Reports: Patient, Old Records History Limitations: Reports: No Limitations - History of Present Illness INITIAL COMMENTS - FREE TEXT/NARRATIVE: Johny returns to [facility] ED with ongoing sxs of productive cough, low grade fever, scratchy throat, and malaise.There is no SOB, wheezing, pleurisy, loss of appetite, chills or sweats. He has been taking Augmentin CR 875 bid, OTC cough meds with DM, and rest. He did not keep appt. at [facility] for mental health management. - Related Data Allergies Allergy/AdvReac Type Severity Reaction Status Date / Time doxycycline Allergy Blisters, Verified 04/03/18 20:54 Photosensitivity hydrocodone bitartrate Allergy Difficulty Verified 04/03/18 20:53 [From Vicodin] Breathing Home Meds: Home Meds FLUoxetine HCl [Prozac] 20 mg PO DAILY 02/25/18 [History] Amoxicillin/Potassium Clav [Augmentin 875-125 Tablet] 1 each PO BID #10 tablet 04/01/18 [Rx] Fluticasone Propionate [Flonase] 1 spray NS DAILY 04/01/18 [History] Past Medical History - Past Health History Medical/Surgical History: Denies Medical/Surgical History HEENT History: Reports: Impaired Vision, Other (See Below) Other HEENT History: Wears glasses. Cardiovascular History: Reports: Hypertension, Other (See Below) Other Cardiovascular History: Hx of heart irregularities and chest tightness. Respiratory History: Reports: Other (See Below) Other Respiratory History: Patient states he has been exposed to "Black Mold". Hx respiratory issues, non specified. Gastrointestinal History: Reports: GERD Other Gastrointestinal History: Acid reflux. Neurological History: Reports: Concussion, Migraines Psychiatric History: Reports: Aggressive/Hostile Behaviors, Antisocial Behaviors , Anxiety, Bipolar, Depression, Learning Disability, Mood Swings, Psych Hospitalization(s), Suicide Attempt, Suicidal Ideation, Other (See Below) Other Psychiatric History: alcohol syndrome. Endocrine/Metabolic History: Reports: Hypothyroidism Other Endocrine/Metabolic History: Patient states he is borderline diabetic. Hematologic History: Reports: None Dermatologic History: Reports: Psoriasis - Infectious Disease History Infectious Disease History: Reports: Chicken Pox - Past Surgical History Other Cardiovascular Surgeries/Procedures: Patient states he had cardiac stents placed. Social & Family History - Family History Family Medical History: Noncontributory Cardiac: Reports: Angina, Hypertension, [place] Other Cardiac Family History: Father at 42 due to heart related issues. Aunts and uncles have a history of cardiac issues. Respiratory: Reports: Other (See Below) Other Respiratory Family Hisory: Lung CA. - Caffeine Use Caffeine Use: Reports: Coffee, Tea Caffeine Use Comment: Pt refused to answer questions - Living Situation & Occupation Living situation: Reports: Single ED ROS GENERAL - Review of Systems Review Of Systems: See Below Constitutional: Reports: Fever, Malaise, Decreased Appetite HEENT: Reports: Throat Pain Respiratory: Reports: Cough, Sputum Cardiovascular: Reports: No Symptoms Endocrine: Reports: No Symptoms GI/Abdominal: Reports: No Symptoms : Reports: No Symptoms Musculoskeletal: Reports: No Symptoms Skin: Reports: No Symptoms Neurological: Reports: No Symptoms Psychiatric: Reports: No Symptoms Hematologic/Lymphatic: Reports: No Symptoms Immunologic: Reports: No Symptoms ED EXAM, GENERAL - Physical Exam Exam: See Below Exam Limited By: No Limitations General Appearance: Alert, WD/WN, No Apparent Distress, Anxious Eye Exam: Bilateral Eye: EOMI, Normal Inspection, PERRL Ears: Normal External Exam Nose: Normal Inspection Throat/Mouth: Normal Inspection, Normal Lips, Normal Teeth, Normal Gums, Normal Voice, No Airway Compromise Head: Normocephalic Neck: Normal Inspection, Supple Respiratory/Chest: No Respiratory Distress, No Accessory Muscle Use, Rhonchi Cardiovascular: Regular Rate, Rhythm, No Murmur Back Exam: Normal Inspection Extremities: Normal Inspection Neurological: Alert, Oriented, CN II-XII Intact, No Motor/Sensory Deficits Psychiatric: Anxious Skin Exam: Warm, Dry, Intact, Normal Color Lymphatic: No Adenopathy Course - Vital Signs Text/Narrative:: Following assessment, an Inf A&B Screen was negative. Johny will continue sxs cares and finish out his antibx therapy. - Orders/Labs/Meds Orders: Active Orders 24 hr Category Date Time Status INFLUENZA A+B AG SCREEN [RM] Stat Lab 04/03/18 20:30 Ordered Departure - Departure Time of Disposition: 21:12 Disposition: Home, Self-Care 01 Condition: Fair Clinical Impression: Bronchitis - Discharge Information Instructions: Acute Bronchitis, Adult Referrals: PCP,Not In Area [Ordering Only Provider] - Forms: ED Department Discharge Care Plan Goals: Continue medications. Get plenty of rest and fluids. - Problem List & Annotations (1) Acute bronchitis SNOMED Code(s): 73527247 Code(s): J20.9 - ACUTE BRONCHITIS, UNSPECIFIED Status: Acute Current Visit: No Onset Date: 06/03/14 Annotation/Comment:: I dispensed Augmentin Cr 875 bid for 5 days. He will follow with providers at [facility] later this week. - Problem List Review Problem List Initiated/Reviewed/Updated: Yes - My Orders Last 24 Hours: My Active Orders 04/03/18 20:30 INFLUENZA A+B AG SCREEN [RM] Stat - Assessment/Plan Last 24 Hours: My Active Orders 04/03/18 20:30 INFLUENZA A+B AG SCREEN [RM] Stat Plan: Finish out meds and follow up with PCP if needed.
== END 2018-04-03 21:25 | disposition home or self-care (01) ==
LOC: FB.ED 20:26
DX: J40 Bronchitis, not specified as acute or chronic (principal); I10 Essential (primary) hypertension; K21.9 Gastro-esophageal reflux disease without esophagitis; E03.9 Hypothyroidism, unspecified; Z88.1 Allergy status to other antibiotic agents; Z88.6 Allergy status to analgesic agent; Z79.899 Other long term (current) drug therapy
CPT/HCPCS: 87804; 87804-59; 99283

== ENCOUNTER 2018-05-08 12:46 | Emergency (ER) | payer MEDICARE, MEDICAID ==
--- NOTE | 2018-05-08 13:50 | EDM.PDOC ---
ED HPI GENERAL MEDICAL PROBLEM - General Chief Complaint: ENT Problem Stated Complaint: RIGHT EAR THROBBING Time Seen by Provider: 05/08/18 13:45 Source of Information: Reports: Patient History Limitations: Reports: No Limitations - History of Present Illness INITIAL COMMENTS - FREE TEXT/NARRATIVE: Complains of right ear pain described as a "knocking" sensation with decreased hearing x 2-3 days. Patient believes he has an ear infection. Duration: Day(s): (2-3) - Related Data Allergies Allergy/AdvReac Type Severity Reaction Status Date / Time doxycycline Allergy Blisters, Verified 05/08/18 13:12 Photosensitivity hydrocodone bitartrate Allergy Difficulty Verified 05/08/18 13:12 [From Vicodin] Breathing Home Meds: Home Meds Albuterol Sulfate 2.5 mg IH BID PRN 05/08/18 [History] Amoxicillin/Clavulanate K [Augmentin 875-125 MG] 1 tab PO BID #14 tablet [Rx] Divalproex Sodium [Depakote ER] 750 mg PO BID 05/08/18 [History] LORazepam 0.5 mg PO BID PRN 05/08/18 [History] Past Medical History - Past Health History Medical/Surgical History: Denies Medical/Surgical History HEENT History: Reports: Impaired Vision, Other (See Below) Other HEENT History: Wears glasses. Cardiovascular History: Reports: Hypertension, Other (See Below) Other Cardiovascular History: Hx of heart irregularities and chest tightness. Respiratory History: Reports: Other (See Below) Other Respiratory History: Patient states he has been exposed to "Black Mold". Hx respiratory issues, non specified. Gastrointestinal History: Reports: GERD Other Gastrointestinal History: Acid reflux. Neurological History: Reports: Migraines Psychiatric History: Reports: Aggressive/Hostile Behaviors, Antisocial Behaviors , Anxiety, Bipolar, Depression, Learning Disability, Mood Swings, Psych Hospitalization(s), Suicide Attempt, Suicidal Ideation, Other (See Below) Other Psychiatric History: alcohol syndrome. Endocrine/Metabolic History: Reports: Hypothyroidism Other Endocrine/Metabolic History: Patient states he is borderline diabetic. Hematologic History: Reports: None Dermatologic History: Reports: Psoriasis - Infectious Disease History Infectious Disease History: Reports: Chicken Pox - Past Surgical History HEENT Surgical History: Reports: None Social & Family History - Family History Family Medical History: Noncontributory Cardiac: Reports: Angina, Hypertension, [place] Other Cardiac Family History: Father at 42 due to heart related issues. Aunts and uncles have a history of cardiac issues. Respiratory: Reports: Other (See Below) Other Respiratory Family Hisory: Lung CA. - Tobacco Use Smoking Status *Q: Former Smoker Years of Tobacco use: 3 Used Tobacco, but Quit: Yes Month/Year Tobacco Last Used: 2017 - Caffeine Use Caffeine Use: Reports: Coffee, Soda, Tea Caffeine Use Comment: Pt refused to answer questions - Recreational Drug Use Recreational Drug Use: Yes Recreational Drug Type: Reports: Marijuana/Hashish Recreational Drug Use Frequency: Rarely - Living Situation & Occupation Living situation: Reports: Single ED ROS ENT - Review of Systems Review Of Systems: ROS reveals no pertinent complaints other than HPI. ED EXAM, ENT - Physical Exam Exam: See Below Exam Limited By: No Limitations General Appearance: Alert, WD/WN, No Apparent Distress Ears: Normal Canal, TM Dullness (right), TM Erythema (right) Nose: Normal Inspection Mouth/Throat: Normal Inspection, Normal Oropharynx Head: Atraumatic, Normocephalic Neck: Supple Respiratory/Chest: No Respiratory Distress Course - Vital Signs Last Recorded V/S: Last Vital Signs Temp 36.6 C 05/08/18 13:10 Pulse 69 05/08/18 13:10 Resp 20 05/08/18 13:10 BP 120/80 05/08/18 13:10 Pulse Ox 99 05/08/18 13:10 Departure - Departure Time of Disposition: 13:48 Disposition: Home, Self-Care 01 Condition: Good Clinical Impression: Otitis media Qualifiers: Otitis media type: other nonsuppurative Chronicity: acute Laterality: left Recurrence: not specified as recurrent Qualified Code(s): H65.192 - Other acute nonsuppurative otitis media, left ear - Discharge Information *PRESCRIPTION DRUG MONITORING PROGRAM REVIEWED*: No *COPY OF PRESCRIPTION DRUG MONITORING REPORT IN PATIENT [place]: Not Applicable Prescriptions: Amoxicillin/Clavulanate K [Augmentin 875-125 MG] 1 tab PO BID #14 tablet Instructions: Otitis Media, Adult, [id number] Referrals: PCP,None [Primary Care Provider] - Additional Instructions: OTC Tylenol or Ibuprofen as needed. Fill Augmentin prescription. Follow up if symptoms don't improve 2-3 days.
[2018-05-08 14:01] VITALS: BP 117/59
== END 2018-05-08 13:57 | disposition home or self-care (01) ==
LOC: FB.ED 12:46
DX: H65.192 Other acute nonsuppurative otitis media, left ear (principal); I10 Essential (primary) hypertension; K21.9 Gastro-esophageal reflux disease without esophagitis; E03.9 Hypothyroidism, unspecified; Z87.891 Personal history of nicotine dependence; Z88.1 Allergy status to other antibiotic agents; Z88.5 Allergy status to narcotic agent; Z79.899 Other long term (current) drug therapy
CPT/HCPCS: 99282

== ENCOUNTER 2018-06-17 00:27 | Emergency (ER) | payer MEDICARE, MEDICAID ==
--- NOTE | 2018-06-17 01:24 | EDM.PDOC ---
ED HPI GENERAL MEDICAL PROBLEM - General Chief Complaint: Allergic Reaction Stated Complaint: CHEST PAIN Time Seen by Provider: 06/17/18 01:10 Source of Information: Reports: Patient, Old Records History Limitations: Reports: No Limitations - History of Present Illness INITIAL COMMENTS - FREE TEXT/NARRATIVE: Johny returns to [facility] ED with initial sxs of chest congestion and chest pain. Following an ekg with normal features, the narrative changed to nasal congestion and seasonal allergies. There is reported sneezing, some cough and post nasal drainage. There has been no epistaxis or hx of polyps. He used a Anastasia Pot before coming to the ED. - Related Data Allergies Allergy/AdvReac Type Severity Reaction Status Date / Time doxycycline Allergy Blisters, Verified 05/08/18 13:12 Photosensitivity hydrocodone bitartrate Allergy Difficulty Verified 05/08/18 13:12 [From Vicodin] Breathing Home Meds: Home Meds Albuterol Sulfate 2.5 mg IH BID PRN 05/08/18 [History] Amoxicillin/Clavulanate K [Augmentin 875-125 MG] 1 tab PO BID #14 tablet [Rx] Divalproex Sodium [Depakote ER] 750 mg PO BID 05/08/18 [History] LORazepam 0.5 mg PO BID PRN 05/08/18 [History] Triamcinolone Acetonide [Nasacort] 10.8 ml NS DAILY #1 spray 06/17/18 [Rx] Past Medical History - Past Health History Medical/Surgical History: Denies Medical/Surgical History HEENT History: Reports: Impaired Vision, Other (See Below) Other HEENT History: Wears glasses. Cardiovascular History: Reports: Hypertension, Other (See Below) Other Cardiovascular History: Hx of heart irregularities and chest tightness. Respiratory History: Reports: Other (See Below) Other Respiratory History: Patient states he has been exposed to "Black Mold". Hx respiratory issues, non specified. Gastrointestinal History: Reports: GERD Other Gastrointestinal History: Acid reflux. Neurological History: Reports: Migraines Psychiatric History: Reports: Aggressive/Hostile Behaviors, Antisocial Behaviors , Anxiety, Bipolar, Depression, Learning Disability, Mood Swings, Psych Hospitalization(s), Suicide Attempt, Suicidal Ideation, Other (See Below) Other Psychiatric History: alcohol syndrome. Endocrine/Metabolic History: Reports: Hypothyroidism Other Endocrine/Metabolic History: Patient states he is borderline diabetic. Hematologic History: Reports: None Dermatologic History: Reports: Psoriasis - Infectious Disease History Infectious Disease History: Reports: Chicken Pox - Past Surgical History HEENT Surgical History: Reports: None Social & Family History - Family History Family Medical History: Noncontributory Cardiac: Reports: Angina, Hypertension, [place] Other Cardiac Family History: Father at 42 due to heart related issues. Aunts and uncles have a history of cardiac issues. Respiratory: Reports: Other (See Below) Other Respiratory Family Hisory: Lung CA. - Caffeine Use Caffeine Use: Reports: Coffee, Soda, Tea Caffeine Use Comment: Pt refused to answer questions - Living Situation & Occupation Living situation: Reports: Single ED ROS GENERAL - Review of Systems Review Of Systems: ROS reveals no pertinent complaints other than HPI. ED EXAM, GENERAL - Physical Exam Exam: See Below Exam Limited By: No Limitations General Appearance: Alert, WD/WN, No Apparent Distress, Anxious Eye Exam: Bilateral Eye: EOMI, Normal Inspection, PERRL Ears: Normal External Exam, Normal TMs Nose: Normal Inspection, Clear Rhinorrhea Throat/Mouth: Normal Inspection, Normal Lips, Normal Gums, Normal Oropharynx, Normal Voice, No Airway Compromise Head: Normocephalic Neck: Normal Inspection, Supple, Non-Tender, Full Range of Motion Respiratory/Chest: No Respiratory Distress, Lungs Clear, Normal Breath Sounds, No Accessory Muscle Use, Chest Non-Tender Cardiovascular: Regular Rate, Rhythm, No Murmur Back Exam: Normal Inspection Extremities: Normal Inspection Neurological: Alert, Oriented, CN II-XII Intact, Normal Cognition, Normal Gait, Normal Reflexes, No Motor/Sensory Deficits Psychiatric: Normal Affect, Anxious Skin Exam: Warm, Dry, Intact Lymphatic: No Adenopathy Course - Vital Signs Text/Narrative:: Johny remained stable at the [facility] ED. No meds were dispensed. Departure - Departure Time of Disposition: 01:23 Disposition: Home, Self-Care 01 Condition: Good Clinical Impression: Allergic rhinitis Qualifiers: Allergic rhinitis trigger: unspecified Allergic rhinitis seasonality: seasonal Qualified Code(s): J30.2 - Other seasonal allergic rhinitis - Discharge Information *PRESCRIPTION DRUG MONITORING PROGRAM REVIEWED*: Not Applicable *COPY OF PRESCRIPTION DRUG MONITORING REPORT IN PATIENT [place]: Not Applicable Prescriptions: Triamcinolone Acetonide [Nasacort] 10.8 ml NS DAILY #1 spray Referrals: PCP,None [Primary Care Provider] - Forms: ED Department Discharge - Problem List & Annotations (1) Allergic rhinitis SNOMED Code(s): 93469184 Code(s): J30.9 - ALLERGIC RHINITIS, UNSPECIFIED Status: Acute Current Visit: Yes Annotation/Comment:: I dispensed Nasacort NS once daily as directed. He may consider a nonsedating antihistamine for daily use. Qualifiers: Allergic rhinitis trigger: unspecified Allergic rhinitis seasonality: seasonal Qualified Code(s): J30.2 - Other seasonal allergic rhinitis - Problem List Review Problem List Initiated/Reviewed/Updated: Yes - Assessment/Plan Plan: Follow up with PCP if needed.
[2018-06-17 02:06] VITALS: BP 118/70
== END 2018-06-17 01:27 | disposition home or self-care (01) ==
LOC: FB.ED 00:27
DX: J30.2 Other seasonal allergic rhinitis (principal); I10 Essential (primary) hypertension; Z88.1 Allergy status to other antibiotic agents
CPT/HCPCS: 93005; 99284

== ENCOUNTER 2018-07-11 21:16 | Emergency (ER) | payer MEDICARE, MEDICAID ==
--- NOTE | 2018-07-11 21:39 | EDM.PDOC ---
ED HPI GENERAL MEDICAL PROBLEM - General Stated Complaint: FACIAL NUMBNESS Time Seen by Provider: 07/11/18 21:29 Source of Information: Reports: Patient - History of Present Illness INITIAL COMMENTS - FREE TEXT/NARRATIVE: 33-year-old gentleman coming in with multiple medical complaints. He is endorsing facial numbness which is chronic left-sided and feeling of chest congestion. He has a history of chronic nasal drainage. He is here to see if he can get some help with his chest congestion. There is no fever no chest pain - Related Data Allergies Allergy/AdvReac Type Severity Reaction Status Date / Time doxycycline Allergy Blisters, Verified 07/11/18 22:03 Photosensitivity hydrocodone bitartrate Allergy Difficulty Verified 07/11/18 22:03 [From Vicodin] Breathing Home Meds: Home Meds Albuterol Sulfate 2.5 mg IH BID PRN 05/08/18 [History] Divalproex Sodium [Depakote ER] 750 mg PO BID 05/08/18 [History] LORazepam 0.5 mg PO BID PRN 05/08/18 [History] Triamcinolone Acetonide [Nasacort] 10.8 ml NS DAILY #1 spray 06/17/18 [Rx] predniSONE [Prednisone] 50 mg PO DAILY 3 Days #5 tablet 07/11/18 [Rx] Past Medical History - Past Health History Medical/Surgical History: Denies Medical/Surgical History HEENT History: Reports: Impaired Vision, Other (See Below) Other HEENT History: Wears glasses. Cardiovascular History: Reports: Hypertension, Other (See Below) Other Cardiovascular History: Hx of heart irregularities and chest tightness. Respiratory History: Reports: Other (See Below) Other Respiratory History: Patient states he has been exposed to "Black Mold". Hx respiratory issues, non specified. Gastrointestinal History: Reports: GERD Other Gastrointestinal History: Acid reflux. Neurological History: Reports: Migraines Psychiatric History: Reports: Aggressive/Hostile Behaviors, Antisocial Behaviors , Anxiety, Bipolar, Depression, Learning Disability, Mood Swings, Psych Hospitalization(s), Suicide Attempt, Suicidal Ideation, Other (See Below) Other Psychiatric History: alcohol syndrome. Endocrine/Metabolic History: Reports: Hypothyroidism Other Endocrine/Metabolic History: Patient states he is borderline diabetic. Hematologic History: Reports: None Dermatologic History: Reports: Psoriasis - Infectious Disease History Infectious Disease History: Reports: Chicken Pox - Past Surgical History HEENT Surgical History: Reports: None Social & Family History - Family History Family Medical History: Noncontributory Cardiac: Reports: Angina, Hypertension, [place] Other Cardiac Family History: Father at 42 due to heart related issues. Aunts and uncles have a history of cardiac issues. Respiratory: Reports: Other (See Below) Other Respiratory Family Hisory: Lung CA. - Caffeine Use Caffeine Use: Reports: Coffee, Soda, Tea Caffeine Use Comment: Pt refused to answer questions - Living Situation & Occupation Living situation: Reports: Single ED ROS GENERAL - Review of Systems Review Of Systems: See Below HEENT: Reports: Other (Rhinorrhea) Respiratory: Reports: Other (Chest congestion) Cardiovascular: Reports: No Symptoms GI/Abdominal: Reports: No Symptoms ED EXAM, GENERAL - Physical Exam Exam: See Below Exam Limited By: No Limitations General Appearance: Alert, No Apparent Distress Nose: Other (His voice sounds very nasal) Head: Atraumatic, Normocephalic Respiratory/Chest: No Respiratory Distress, Lungs Clear, Normal Breath Sounds Cardiovascular: Normal Peripheral Pulses Extremities: Normal Inspection Neurological: Alert, Oriented Psychiatric: Normal Affect, Normal Mood Course - Vital Signs Text/Narrative:: Gentleman with chronic psychiatric history multiple medical complaints very suspicious of physicians. Chronic chest and sinus congestion. He is steroid has helped him in the past. He will likely repeat trial. We discussed benefits and side effects of steroids. Short course given. He is to return if symptoms are worsening or persistent. We talked about facial numbness and recommend he go see ENT/neuroology especially seeing the chronic rhinorrhea Last Recorded V/S: Last Vital Signs Temp 36.3 C 07/11/18 21:16 Pulse 59 L 07/11/18 21:16 Resp 18 07/11/18 21:16 BP 129/94 H 07/11/18 21:16 Pulse Ox 99 07/11/18 21:16 - Orders/Labs/Meds Meds: Medications Discontinued Medications Generic Name Dose Route Start Last Admin Trade Name Marco A PRN Reason Stop Dose Admin Prednisone 40 mg 07/11/18 21:58 07/11/18 22:08 Prednisone PO 07/11/18 21:59 40 mg ONETIME ONE Administration Departure - Departure Time of Disposition: 22:02 Disposition: Home, Self-Care 01 Condition: Good Clinical Impression: Anxiety, Bronchitis, Congestion of respiratory tract - Discharge Information *PRESCRIPTION DRUG MONITORING PROGRAM REVIEWED*: Not Applicable *COPY OF PRESCRIPTION DRUG MONITORING REPORT IN PATIENT [place]: Not Applicable Prescriptions: predniSONE [Prednisone] 50 mg PO DAILY 3 Days #5 tablet Instructions: Generalized Anxiety Disorder, Adult, Upper Respiratory Infection , Adult, [id number], Prednisone tablets Referrals: PCP,Not In Area [Primary Care Provider] - Forms: ED Department Discharge
[2018-07-11] MEDS ORDERED: predniSONE 10 MG Tab PO ONE (21:58)
[2018-07-11 22:51] VITALS: BP 129/94
== END 2018-07-11 22:23 | disposition home or self-care (01) ==
LOC: FB.ED 21:16
DX: J40 Bronchitis, not specified as acute or chronic (principal); F41.9 Anxiety disorder, unspecified; I10 Essential (primary) hypertension; Z88.8 Allergy status to other drugs, medicaments and biological substances
CPT/HCPCS: 99282; A9270; 99283

== ENCOUNTER 2018-07-13 21:08 | Emergency (ER) | payer MEDICARE, MEDICAID ==
[2018-07-13] MEDS ORDERED: Sodium Chloride 0.9% 10 ML Syringe FLUSH PRN (21:15)
--- NOTE | 2018-07-13 21:37 | EDM.PDOC ---
ED HPI GENERAL MEDICAL PROBLEM - General Chief Complaint: Neuro Symptoms/Deficits Stated Complaint: FACIAL NUMBNESS Time Seen by Provider: 07/13/18 21:22 Source of Information: Reports: Patient History Limitations: Reports: No Limitations - History of Present Illness INITIAL COMMENTS - FREE TEXT/NARRATIVE: Presents with left facial numbness x 3.5 hours, had left sided headache prior to onset. He has had intermittent left facial numbness x 2 months. No h/o CVA/ TIA. Patient has h/o anxiety, took an extra Clonazepam 0.5mg prior to coming to the ER tonight. Numbness localized to left face including forehead, scalp and left neck. Location: Reports: Face, Neck Quality: Reports: Other (numbness) Severity: Moderate general Pain Score (Numeric/FACES): 6 - Related Data Allergies Allergy/AdvReac Type Severity Reaction Status Date / Time doxycycline Allergy Blisters, Verified 07/13/18 21:15 Photosensitivity hydrocodone bitartrate Allergy Difficulty Verified 07/13/18 21:15 [From Vicodin] Breathing Home Meds: Home Meds Albuterol Sulfate 2.5 mg IH BID PRN 05/08/18 [History] Divalproex Sodium [Depakote ER] 750 mg PO BID 05/08/18 [History] LORazepam 0.5 mg PO BID PRN 05/08/18 [History] Triamcinolone Acetonide [Nasacort] 10.8 ml NS DAILY #1 spray 06/17/18 [Rx] predniSONE [Prednisone] 50 mg PO DAILY 3 Days #5 tablet 07/11/18 [Rx] Past Medical History HEENT History: Reports: Impaired Vision, Other (See Below) Other HEENT History: Wears glasses. Cardiovascular History: Reports: Hypertension, Other (See Below) Other Cardiovascular History: Hx of heart irregularities and chest tightness. Respiratory History: Reports: Other (See Below) Other Respiratory History: Patient states he has been exposed to "Black Mold". Hx respiratory issues, non specified. Gastrointestinal History: Reports: GERD Other Gastrointestinal History: Acid reflux. Neurological History: Reports: Migraines Psychiatric History: Reports: Aggressive/Hostile Behaviors, Antisocial Behaviors , Anxiety, Bipolar, Depression, Learning Disability, Mood Swings, Psych Hospitalization(s), Suicide Attempt, Suicidal Ideation, Other (See Below) Other Psychiatric History: alcohol syndrome. Endocrine/Metabolic History: Reports: Hypothyroidism Other Endocrine/Metabolic History: Patient states he is borderline diabetic. Hematologic History: Reports: None Dermatologic History: Reports: Psoriasis - Infectious Disease History Infectious Disease History: Reports: Chicken Pox - Past Surgical History HEENT Surgical History: Reports: None Social & Family History - Family History Family Medical History: Noncontributory Cardiac: Reports: Angina, Hypertension, [place] Other Cardiac Family History: Father at 42 due to heart related issues. Aunts and uncles have a history of cardiac issues. Respiratory: Reports: Other (See Below) Other Respiratory Family Hisory: Lung CA. - Tobacco Use Smoking Status *Q: Former Smoker (quit 3 months ago) Tobacco Use Within Last Twelve Months: Cigarettes - Caffeine Use Caffeine Use: Reports: Coffee, Soda, Tea Caffeine Use Comment: Pt refused to answer questions - Alcohol Use Alcohol Use History: No - Living Situation & Occupation Living situation: Reports: Single ED ROS GENERAL - Review of Systems Review Of Systems: ROS reveals no pertinent complaints other than HPI. ED EXAM, NEURO - Physical Exam Exam: See Below Exam Limited By: No Limitations General Appearance: Alert, WD/WN, No Apparent Distress Ears: Normal External Exam Nose: Normal Inspection Throat/Mouth: Normal Inspection, Normal Oropharynx, No Airway Compromise Head Exam: Atraumatic, Normocephalic Neck: Normal Inspection, Supple, Full Range of Motion Respiratory/Chest: No Respiratory Distress, Lungs Clear, Normal Breath Sounds Cardiovascular: Regular Rate, Rhythm, No Murmur GI/Abdominal: No Distention Neurological: Alert, Normal Mood/Affect, Normal Gait, Oriented x 3, Other ( Decreased sensation to left scalp, forehead, face and lateral neck. No facial or forehead weakness. No Upper or lower extremity weakness or drift.) Extremities: Normal Range of Motion Psychiatric: Normal Affect, Normal Mood Skin Exam: Warm, Dry, Intact EKG INTERPRETATION EKG Date: 07/13/18 Time: 21:26 Rhythm: NSR Rate (Beats/Min): 79 [place]: Normal P-Wave: Present QRS: Normal ST-T: Normal QT: Normal Course - Vital Signs Last Recorded V/S: Last Vital Signs Temp 36.6 C 07/13/18 21:08 Pulse 82 07/13/18 21:08 Resp 20 07/13/18 21:08 BP 153/71 H 07/13/18 21:08 Pulse Ox 99 07/13/18 21:08 - Orders/Labs/Meds Orders: Active Orders 24 hr Category Date Time Status EKG Documentation Completion [RC] ASDIRECTED Care 07/13/18 21:15 Active Head wo Cont [CT] Stat Exams 07/13/18 21:14 Taken Saline Lock Insert [OM.PC] Routine Oth 07/13/18 21:15 Ordered EKG 12 Lead [EK] Stat Ther 07/13/18 21:15 Ordered Labs: Laboratory Tests 07/13/18 07/13/18 07/13/18 Range/Units 21:20 21:20 21:20 WBC (4.5-12.0) X10-3/uL RBC (4.30-5.75) x10(6)uL Hgb (11.5-15.5) g/dL Hct (30.0-51.3) % MCV (80-96) fL MCH (27.7-33.6) pg MCHC (32.2-35.4) g/dL RDW (11.5-15.5) % Plt Count (125-369) X10(3)uL MPV (7.4-10.4) fL Neut % (Auto) (46-82) % Lymph % (Auto) (13-37) % Heard % (Auto) (4-12) % Eos % (Auto) (1.0-5.0) % Baso % (Auto) (0-2) % Neut # (Auto) (1.6-8.3) # Lymph # (Auto) (0.6-5.0) # Heard # (Auto) (0.0-1.3) # Eos # (Auto) (0.0-0.8) # Baso # (Auto) (0.0-0.2) # PT 9.7 (8.7-11.1) INR 1.00 (0.89-1.13) Sodium 140 (135-145) mmol/L Potassium 3.9 (3.5-5.3) mmol/L Chloride 102 (100-110) mmol/L Carbon Dioxide 31 (21-32) mmol/L BUN 19 H (7-18) mg/dL Creatinine 1.0 (0.70-1.30) mg/dL Est Cr Clr Drug Dosing 111.90 mL/min Estimated GFR (MDRD) > 60 (>60) BUN/Creatinine Ratio 19.0 (9-20) Glucose 89 (80-116) mg/dL Calcium 9.4 (8.6-10.2) mg/dL Total Bilirubin 0.5 (0.1-1.3) mg/dL AST 20 D (5-25) IU/L ALT 45 H D (12-36) U/L Alkaline Phosphatase 64 (56-112) IU/L Troponin I < 0.017 L (<0.017-0.056) ng/mL Total Protein 8.0 (6.0-8.0) g/dL Albumin 4.3 (3.5-5.2) g/dL Globulin 3.7 g/dL Albumin/Globulin Ratio 1.2 07/13/18 Range/Units 21:35 WBC 9.4 (4.5-12.0) X10-3/uL RBC 5.44 (4.30-5.75) x10(6)uL Hgb 17.1 H (11.5-15.5) g/dL Hct 49.7 (30.0-51.3) % MCV 91.2 (80-96) fL MCH 31.4 (27.7-33.6) pg MCHC 34.4 (32.2-35.4) g/dL RDW 12.5 (11.5-15.5) % Plt Count 216 (125-369) X10(3)uL MPV 8.8 (7.4-10.4) fL Neut % (Auto) 58.7 (46-82) % Lymph % (Auto) 33.2 (13-37) % Heard % (Auto) 5.5 (4-12) % Eos % (Auto) 2 (1.0-5.0) % Baso % (Auto) 1 (0-2) % Neut # (Auto) 5.5 (1.6-8.3) # Lymph # (Auto) 3.1 (0.6-5.0) # Heard # (Auto) 0.5 (0.0-1.3) # Eos # (Auto) 0.2 (0.0-0.8) # Baso # (Auto) 0.1 (0.0-0.2) # PT (8.7-11.1) INR (0.89-1.13) Sodium (135-145) mmol/L Potassium (3.5-5.3) mmol/L Chloride (100-110) mmol/L Carbon Dioxide (21-32) mmol/L BUN (7-18) mg/dL Creatinine (0.70-1.30) mg/dL Est Cr Clr Drug Dosing mL/min Estimated GFR (MDRD) (>60) BUN/Creatinine Ratio (9-20) Glucose (80-116) mg/dL Calcium (8.6-10.2) mg/dL Total Bilirubin (0.1-1.3) mg/dL AST (5-25) IU/L ALT (12-36) U/L Alkaline Phosphatase (56-112) IU/L Troponin I (<0.017-0.056) ng/mL Total Protein (6.0-8.0) g/dL Albumin (3.5-5.2) g/dL Globulin g/dL Albumin/Globulin Ratio Meds: Medications Discontinued Medications Generic Name Dose Route Start Last Admin Trade Name Freq PRN Reason Stop Dose Admin Sodium Chloride 10 ml 07/13/18 21:15 Saline Flush FLUSH ASDIRECTED PRN Keep Vein Open - Radiology Interpretation Free Text/Narrative:: Head CT: No acute intracranial disease. Mild mucosal thickening paranasal sinuses. - Re-Assessments/Exams Free Text/Narrative Re-Assessment/Exam: 07/13/18 22:24 Symptoms unchanged. 07/13/18 22:34 Recurrent left facial numbness of unclear etiology. Patient will need to follow up with Neurology. Departure - Departure Time of Disposition: 22:23 Disposition: Home, Self-Care 01 Condition: Good Clinical Impression: Left facial numbness - Discharge Information *PRESCRIPTION DRUG MONITORING PROGRAM REVIEWED*: No *COPY OF PRESCRIPTION DRUG MONITORING REPORT IN PATIENT [place]: Not Applicable Instructions: Paresthesia, [id number] Referrals: PCP,None [Primary Care Provider] - Den Ramirez MD [Ordering Only Provider] - Forms: ED Department Discharge Additional Instructions: Follow up with Neurology 2-3 days. Return to the ER as needed. - My Orders Last 24 Hours: My Active Orders 07/13/18 21:14 Head wo Cont [CT] Stat 07/13/18 21:15 EKG Documentation Completion [RC] ASDIRECTED Saline Lock Insert [OM.PC] Routine EKG 12 Lead [EK] Stat - Assessment/Plan Last 24 Hours: My Active Orders 07/13/18 21:14 Head wo Cont [CT] Stat 07/13/18 21:15 EKG Documentation Completion [RC] ASDIRECTED Saline Lock Insert [OM.PC] Routine EKG 12 Lead [EK] Stat
[2018-07-13 23:46] VITALS: BP 136/73
== END 2018-07-13 22:56 | disposition home or self-care (01) ==
LOC: FB.ED 21:08
DX: R20.0 Anesthesia of skin (principal); I10 Essential (primary) hypertension; Z87.891 Personal history of nicotine dependence; Z88.8 Allergy status to other drugs, medicaments and biological substances
CPT/HCPCS: 36415; 70450; 80053; 84484; 85025; 85610; 93005; 93010; 99283; 99284

== ENCOUNTER 2018-10-26 21:10 | Emergency (ER) | payer MEDICARE, MEDICAID ==
[2018-10-26] MEDS ORDERED: Ibuprofen 600 MG Tab PO ONE (21:32)
--- NOTE | 2018-10-26 21:34 | EDM.PDOC ---
ED HPI GENERAL MEDICAL PROBLEM - General Stated Complaint: GENERAL Time Seen by Provider: 10/26/18 21:10 Source of Information: Reports: Patient History Limitations: Reports: No Limitations - History of Present Illness INITIAL COMMENTS - FREE TEXT/NARRATIVE: 33 y.o.w.m with mutiple medical complains came to the ed due to minimal pain at his left ant chest wall with deep insp for several years, worse, a little, in the past day, or so. No other acute medical issues. BP 154/70 PULSE OX 98% ON RA , PULSE 74 RR 18 Temp 98.0 Onset Date: 10/26/18 Onset Time: 08:00 Duration: Hour(s): Location: Reports: Chest Quality: Reports: Ache Severity: Mild Improves with: Reports: Rest Worsens with: Reports: Movement Context: Reports: Other Associated Symptoms: Reports: Chest Pain (with deep insp ) - Related Data Allergies Allergy/AdvReac Type Severity Reaction Status Date / Time doxycycline Allergy Blisters, Verified 10/08/18 00:46 Photosensitivity hydrocodone bitartrate Allergy Difficulty Verified 10/08/18 00:46 [From Vicodin] Breathing Home Meds: Home Meds Amoxicillin/Clavulanate K [Augmentin 875-125 MG] 1 tab PO BID #14 tablet [Rx] predniSONE [Prednisone] 40 mg PO DAILY 5 Days #10 tablet 10/08/18 [Rx] Past Medical History HEENT History: Reports: Impaired Vision, Other (See Below) Other HEENT History: Wears glasses. Cardiovascular History: Reports: Hypertension, Other (See Below) Other Cardiovascular History: Hx of heart irregularities and chest tightness. Respiratory History: Reports: Other (See Below) Other Respiratory History: Patient states he has been exposed to "Black Mold". Hx respiratory issues, non specified. Gastrointestinal History: Reports: GERD Other Gastrointestinal History: Acid reflux. Neurological History: Reports: Migraines Psychiatric History: Reports: Aggressive/Hostile Behaviors, Antisocial Behaviors , Anxiety, Bipolar, Depression, Learning Disability, Mood Swings, Psych Hospitalization(s), Suicide Attempt, Suicidal Ideation, Other (See Below) Other Psychiatric History: alcohol syndrome. Endocrine/Metabolic History: Reports: Hypothyroidism Other Endocrine/Metabolic History: Patient states he is borderline diabetic. Hematologic History: Reports: None Dermatologic History: Reports: Psoriasis - Infectious Disease History Infectious Disease History: Reports: Chicken Pox - Past Surgical History HEENT Surgical History: Reports: None Social & Family History - Family History Family Medical History: Noncontributory Cardiac: Reports: Angina, Hypertension, [place] Other Cardiac Family History: Father at 42 due to heart related issues. Aunts and uncles have a history of cardiac issues. Respiratory: Reports: Other (See Below) Other Respiratory Family Hisory: Lung CA. - Caffeine Use Caffeine Use: Reports: Coffee, Soda, Tea Caffeine Use Comment: Pt refused to answer questions - Living Situation & Occupation Living situation: Reports: Single ED ROS GENERAL - Review of Systems Review Of Systems: See Below Constitutional: Reports: No Symptoms HEENT: Reports: No Symptoms Respiratory: Reports: No Symptoms Cardiovascular: Reports: No Symptoms Endocrine: Reports: No Symptoms GI/Abdominal: Reports: No Symptoms : Reports: No Symptoms Musculoskeletal: Reports: No Symptoms Skin: Reports: No Symptoms Neurological: Reports: No Symptoms Psychiatric: Reports: No Symptoms Hematologic/Lymphatic: Reports: No Symptoms Immunologic: Reports: No Symptoms ED EXAM, GENERAL - Physical Exam Exam: See Below General Appearance: Alert, WD/WN Eye Exam: Bilateral Eye: Normal Inspection Ears: Normal External Exam Ear Exam: Bilateral Ear: Auricle Normal Nose: Normal Inspection, Normal Mucosa Throat/Mouth: Normal Inspection, Normal Lips, Normal Voice, No Airway Compromise Head: Atraumatic, Normocephalic Neck: Normal Inspection, Supple, Non-Tender, Full Range of Motion Respiratory/Chest: No Respiratory Distress, Lungs Clear, Normal Breath Sounds, Other (pain left ant CW with deep inspiration) Cardiovascular: Normal Peripheral Pulses, Regular Rate, Rhythm, No Edema, No Gallop, No Murmur, No Rub Peripheral Pulses: 2+: Brachial (R) GI/Abdominal: Normal Bowel Sounds, Soft, Non-Tender, No Organomegaly, No Abnormal Bruit, No Mass (Male) Exam: Deferred Rectal (Males) Exam: Deferred Back Exam: Normal Inspection, Full Range of Motion Extremities: Normal Inspection, Normal Range of Motion, Non-Tender, No Pedal Edema, Normal Capillary Refill Neurological: Alert, Oriented, CN II-XII Intact, Normal Cognition, Normal Gait, No Motor/Sensory Deficits Psychiatric: Normal Affect Skin Exam: Warm, Dry, Intact, Normal Color, No Rash Lymphatic: No Adenopathy Course - Vital Signs Text/Narrative:: 33 y.o.w.m with mutiple medical complains came to the ed due to minimal pain at his left ant chest wall with deep insp for several years, worse, a little, in the past day, or so. No other acute medical issues. BP 154/70 PULSE OX 98% ON RA , PULSE 74 RR 18 Temp 98.0 PE: WNWD W M with minor left ant chest wall pain with deep inspiration Imaging/Labs: Not indicated Impression: L chest wall pain with deep inspiration/Pleurisy Tx: Motrin Reexam: Improved Plan: D/C with instructions - Orders/Labs/Meds Meds: Medications Discontinued Medications Generic Name Dose Route Start Last Admin Trade Name Freq PRN Reason Stop Dose Admin Ibuprofen 600 mg 10/26/18 21:32 10/26/18 21:44 Motrin PO 10/26/18 21:33 600 mg ONETIME ONE Administration Departure - Departure Time of Disposition: 21:33 Disposition: Home, Self-Care 01 Condition: Good Clinical Impression: Pleurisy without effusion - Discharge Information Referrals: PCP,None [Primary Care Provider] - Additional Instructions: Please take motrin for pain, please f/u with your PMD, come back if your symptoms get worse acutely
[2018-10-27 02:28] VITALS: BP 154/70
== END 2018-10-26 21:55 | disposition home or self-care (01) ==
LOC: FB.ED 21:10
DX: R09.1 Pleurisy (principal); I10 Essential (primary) hypertension; Z79.899 Other long term (current) drug therapy; Z88.1 Allergy status to other antibiotic agents; Z88.5 Allergy status to narcotic agent
CPT/HCPCS: 99283; A9270-GY

== ENCOUNTER 2018-10-27 18:43 | Emergency (ER) | payer MEDICARE, MEDICAID ==
--- NOTE | 2018-10-27 19:11 | EDM.PDOC ---
ED HPI GENERAL MEDICAL PROBLEM - General Stated Complaint: CONGESTED AND DIFFICULTY SLEEPING Time Seen by Provider: 10/27/18 18:43 Source of Information: Reports: Patient History Limitations: Reports: No Limitations - History of Present Illness INITIAL COMMENTS - FREE TEXT/NARRATIVE: 33 years old w m with frequent visits to this ed came today for a running nose since this am. Possible sick contact. No other acute medical issues. Vitals not done by nurse on admission. Onset Date: 10/27/18 Onset Time: 04:00 Duration: Hour(s):, Intermittent Location: Reports: Face Quality: Reports: Dull Severity: Mild Improves with: Reports: None Worsens with: Reports: None Context: Reports: Sick Contact Associated Symptoms: Reports: No Other Symptoms - Related Data Allergies Allergy/AdvReac Type Severity Reaction Status Date / Time doxycycline Allergy Blisters, Verified 10/27/18 02:07 Photosensitivity hydrocodone bitartrate Allergy Difficulty Verified 10/27/18 02:07 [From Vicodin] Breathing Home Meds: Home Meds Oxymetazoline [Nasal Decongestant] 15 ml ANTONINO BID PRN #1 bottle 10/27/18 [Rx] Past Medical History HEENT History: Reports: Impaired Vision, Other (See Below) Other HEENT History: Wears glasses. Cardiovascular History: Reports: Hypertension, Other (See Below) Other Cardiovascular History: Hx of heart irregularities and chest tightness. Respiratory History: Reports: Other (See Below) Other Respiratory History: Patient states he has been exposed to "Black Mold". Hx respiratory issues, non specified. Gastrointestinal History: Reports: GERD Other Gastrointestinal History: Acid reflux. Neurological History: Reports: Migraines Psychiatric History: Reports: Aggressive/Hostile Behaviors, Antisocial Behaviors , Anxiety, Bipolar, Depression, Learning Disability, Mood Swings, Psych Hospitalization(s), Suicide Attempt, Suicidal Ideation, Other (See Below) Other Psychiatric History: alcohol syndrome. Endocrine/Metabolic History: Reports: Hypothyroidism Other Endocrine/Metabolic History: Patient states he is borderline diabetic. Hematologic History: Reports: None Dermatologic History: Reports: Psoriasis - Infectious Disease History Infectious Disease History: Reports: Chicken Pox - Past Surgical History HEENT Surgical History: Reports: None Social & Family History - Family History Family Medical History: Noncontributory Cardiac: Reports: Angina, Hypertension, [place] Other Cardiac Family History: Father at 42 due to heart related issues. Aunts and uncles have a history of cardiac issues. Respiratory: Reports: Other (See Below) Other Respiratory Family Hisory: Lung CA. - Caffeine Use Caffeine Use: Reports: Coffee, Soda, Tea Caffeine Use Comment: Pt refused to answer questions - Living Situation & Occupation Living situation: Reports: Single ED ROS ENT - Review of Systems Review Of Systems: See Below Constitutional: Reports: No Symptoms HEENT: Reports: Rhinitis Respiratory: Reports: No Symptoms Cardiovascular: Reports: No Symptoms Endocrine: Reports: No Symptoms GI/Abdominal: Reports: No Symptoms : Reports: No Symptoms Musculoskeletal: Reports: No Symptoms Skin: Reports: No Symptoms Neurological: Reports: No Symptoms Psychiatric: Reports: No Symptoms Hematologic/Lymphatic: Reports: No Symptoms Immunologic: Reports: No Symptoms ED EXAM, ENT - Physical Exam Exam: See Below Exam Limited By: No Limitations General Appearance: Alert, WD/WN, Mild Distress Eye Exam: Bilateral Eye: Normal Inspection Ears: Normal External Exam Nose: Clear Rhinorrhea (mild) Mouth/Throat: Normal Inspection, Normal Gums, Normal Lips, Normal Oropharynx Head: Atraumatic, Normocephalic Neck: Normal Inspection, Supple, Non-Tender Respiratory/Chest: No Respiratory Distress, Lungs Clear, Normal Breath Sounds, No Accessory Muscle Use, Chest Non-Tender Cardiovascular: Normal Peripheral Pulses, Regular Rate, Rhythm, No Edema, No Murmur, No Rub GI/Abdominal: Normal Bowel Sounds, Soft, Non-Tender, No Organomegaly, No Abnormal Bruit, No Mass, Pelvis Stable (Male) Exam: Deferred Rectal (Males) Exam: Deferred Back: Normal Inspection, Full Range of Motion Extremities: Normal Inspection, Normal Range of Motion, Non-Tender, No Pedal Edema, Normal Capillary Refill Neurological: Alert, Oriented, CN II-XII Intact, Normal Cognition, Normal Gait, No Motor/Sensory Deficits Psychiatric: Normal Affect, Normal Mood Skin: Warm, Dry, Intact, Normal Color, No Rash Lymphatic: No Adenopathy Course - Vital Signs Text/Narrative:: 33 years old w m with frequent visits to this ed came today for a running nose since this am. Possible sick contact. No other acute medical issues. Vitals not done by nurse on admission. PE: WNWD W M with nasal congestion, mild Impression: Nasal congestion Tx: Afrin as a prescription Reexam: Nurse did neither take the vitals as the pt arrived here in the ED and nor as the patient was discharged from the ED. Please read the nursing notes. the nurse said "just write down vitals were not taken". Plan: Pt was D/C'd with instructions Departure - Departure Time of Disposition: 19:08 Disposition: Home, Self-Care 01 Condition: Good Clinical Impression: Nasal congestion - Discharge Information Prescriptions: Oxymetazoline [Nasal Decongestant] 15 ml ANTONINO BID PRN #1 bottle PRN Reason: nasal congetsion Referrals: PCP,None [Primary Care Provider] - Forms: ED Department Discharge Additional Instructions: Please take the meds as recommended, please follow up with your PMD, please come back if your symptoms get worse acutely.
== END 2018-10-27 19:15 | disposition home or self-care (01) ==
LOC: FB.ED 18:43
DX: R09.81 Nasal congestion (principal); I10 Essential (primary) hypertension; Z88.8 Allergy status to other drugs, medicaments and biological substances; Z88.5 Allergy status to narcotic agent
CPT/HCPCS: 99282; 99283

== ENCOUNTER 2018-11-06 19:12 | Emergency (ER) | payer MEDICARE, MEDICAID ==
[2018-11-06 19:27] VITALS: BP 128/80
--- NOTE | 2018-11-06 19:50 | EDM.PDOC ---
ED HPI GENERAL MEDICAL PROBLEM - General Chief Complaint: Respiratory Problem Stated Complaint: TROUBLE BREATHING Time Seen by Provider: 11/06/18 19:35 Source of Information: Reports: Patient History Limitations: Reports: No Limitations - History of Present Illness INITIAL COMMENTS - FREE TEXT/NARRATIVE: c/o cough pt at [facility] x 9d, exposed to a cough last week no fever has a cough now requesting an antbx (Augmentin) and med for his nebulizer, however no wheeze, has a viral infection does not get flu vax - Related Data Allergies Allergy/AdvReac Type Severity Reaction Status Date / Time doxycycline Allergy Blisters, Verified 10/27/18 02:07 Photosensitivity hydrocodone bitartrate Allergy Difficulty Verified 10/27/18 02:07 [From Vicodin] Breathing Home Meds: Home Meds Oxymetazoline [Nasal Decongestant] 15 ml ANTONINO BID PRN #1 bottle 10/27/18 [Rx] Past Medical History HEENT History: Reports: Impaired Vision, Other (See Below) Other HEENT History: Wears glasses. Cardiovascular History: Reports: Hypertension, Other (See Below) Other Cardiovascular History: Hx of heart irregularities and chest tightness. Respiratory History: Reports: Other (See Below) Other Respiratory History: Patient states he has been exposed to "Black Mold". Hx respiratory issues, non specified. Gastrointestinal History: Reports: GERD Other Gastrointestinal History: Acid reflux. Neurological History: Reports: Migraines Psychiatric History: Reports: Aggressive/Hostile Behaviors, Antisocial Behaviors , Anxiety, Bipolar, Depression, Learning Disability, Mood Swings, Psych Hospitalization(s), Suicide Attempt, Suicidal Ideation, Other (See Below) Other Psychiatric History: alcohol syndrome. Endocrine/Metabolic History: Reports: Hypothyroidism Other Endocrine/Metabolic History: Patient states he is borderline diabetic. Hematologic History: Reports: None Dermatologic History: Reports: Psoriasis - Infectious Disease History Infectious Disease History: Reports: Chicken Pox - Past Surgical History HEENT Surgical History: Reports: None Social & Family History - Family History Family Medical History: Noncontributory Cardiac: Reports: Angina, Hypertension, [place] Other Cardiac Family History: Father at 42 due to heart related issues. Aunts and uncles have a history of cardiac issues. Respiratory: Reports: Other (See Below) Other Respiratory Family Hisory: Lung CA. - Caffeine Use Caffeine Use: Reports: Coffee, Soda, Tea Caffeine Use Comment: Pt refused to answer questions - Living Situation & Occupation Living situation: Reports: Single ED ROS GENERAL - Review of Systems Review Of Systems: See Below Constitutional: Reports: No Symptoms HEENT: Reports: No Symptoms Respiratory: Reports: Cough. Denies: Sputum Cardiovascular: Reports: No Symptoms Endocrine: Reports: No Symptoms GI/Abdominal: Reports: No Symptoms : Reports: No Symptoms Musculoskeletal: Reports: No Symptoms Skin: Reports: No Symptoms Neurological: Reports: No Symptoms Psychiatric: Reports: No Symptoms Hematologic/Lymphatic: Reports: No Symptoms Immunologic: Reports: No Symptoms ED EXAM, GENERAL - Physical Exam Exam: See Below Exam Limited By: No Limitations General Appearance: Alert, WD/WN, No Apparent Distress Nose: Normal Inspection, Normal Mucosa, No Blood, Other (mild swell) Throat/Mouth: Other (mild edema uvula, no red, no exudate) Head: Atraumatic Neck: Normal Inspection, Supple, Non-Tender, Full Range of Motion. No: Lymphadenopathy (R), Lymphadenopathy (L) Respiratory/Chest: No Respiratory Distress, Lungs Clear, Normal Breath Sounds, No Accessory Muscle Use, Chest Non-Tender, Other (no wheeze, no rales, good AE) Cardiovascular: Regular Rate, Rhythm, No Edema, No Murmur, No Rub GI/Abdominal: Normal Bowel Sounds, Soft, Non-Tender, No Distention Back Exam: Normal Inspection, Full Range of Motion, NT Extremities: Normal Inspection, Normal Range of Motion, Non-Tender, No Pedal Edema Neurological: Alert, Oriented, CN II-XII Intact, No Motor/Sensory Deficits Psychiatric: Normal Affect, Normal Mood Skin Exam: Warm, Dry, Intact, Normal Color, No Rash Lymphatic: No Adenopathy Course - Vital Signs Last Recorded V/S: Last Vital Signs Temp 36.4 C 11/06/18 19:25 Pulse 92 11/06/18 19:25 Resp 17 11/06/18 19:25 BP 128/80 11/06/18 19:25 Pulse Ox 100 11/06/18 19:25 Departure - Departure Time of Disposition: 19:44 Disposition: Home, Self-Care 01 Preliminary Cause of *Q: Sepsis & Multi System Organ Failure Clinical Impression: Viral upper respiratory infection - Discharge Information *PRESCRIPTION DRUG MONITORING PROGRAM REVIEWED*: Not Applicable *COPY OF PRESCRIPTION DRUG MONITORING REPORT IN PATIENT [place]: Not Applicable Instructions: Upper Respiratory Infection, Adult Referrals: PCP,None [Primary Care Provider] - Additional Instructions: Get adequate rest. Maintain fluids. See your doctor next week as needed. Call your Physician or Return to Emergency Department if: * Your condition worsens in any way. * You develop fever greater than 100.4. * You have vomitting that does not stop with medications. * You have pain that is not controlled with medications.
== END 2018-11-06 19:54 | disposition home or self-care (01) ==
LOC: FB.ED 19:12
DX: J06.9 Acute upper respiratory infection, unspecified (principal); I10 Essential (primary) hypertension; Z88.1 Allergy status to other antibiotic agents; Z88.8 Allergy status to other drugs, medicaments and biological substances
CPT/HCPCS: 99282

== ENCOUNTER 2019-01-16 21:35 | Emergency (ER) | payer MEDICARE, MEDICAID ==
--- NOTE | 2019-01-16 22:16 | EDM.PDOC ---
ED HPI GENERAL MEDICAL PROBLEM - General Stated Complaint: BLOOD IN STOOL Time Seen by Provider: 01/16/19 21:40 Source of Information: Reports: Patient History Limitations: Reports: No Limitations - History of Present Illness INITIAL COMMENTS - FREE TEXT/NARRATIVE: CC: my glucose is running high - 300 - 360 mg% and passing bright red blood in stools for 3 days with mild generalized abdominal pain. Denies lightheadedness dizziness tachycardia chest discomfort shortness of breath. Johny is well known to all the caregivers in the ED.On review of his of his problem list he has 67 problems listed of which the following are significant ongoing more pertinent problem list: migraine and tension headaches (resolved with 400 mg magnesium in AM), bipolar disorder and noncompliance (resolved for the past 3 months because was in [facility] for 3 weeks and started on 1500 mg Depakote per day), angina (resolved - negative cardiac catheterization studies), suicidal ideation(years ago), obstructionist behavior(resolved after he got on Depakote medicines), GERD, psoriasis, alcohol syndrome, borderline diabetes- he notes he has tested himself on langtaojin purchased home monitor and his glucose has bee > 300 mg several days for several weeks,and he has polydipsia and polyuria, obesity 360 pounds at one time which now is to has gone down from 260-215 pounds in last 4 months. And intermittent nicotine use. hx of running 9 miles a day several years ago. - Related Data Allergies Allergy/AdvReac Type Severity Reaction Status Date / Time doxycycline Allergy Blisters, Verified 01/16/19 21:51 Photosensitivity hydrocodone bitartrate Allergy Difficulty Verified 01/16/19 21:51 [From Vicodin] Breathing Home Meds: Home Meds Divalproex Sodium 1,500 mg PO DAILY 01/16/19 [History] hydrOXYzine pamoate [Hydroxyzine Pamoate] 1 cap PO BID PRN 01/16/19 [History] Past Medical History HEENT History: Reports: Impaired Vision, Other (See Below) Other HEENT History: Wears glasses. Cardiovascular History: Reports: Hypertension, Other (See Below) Other Cardiovascular History: Hx of heart irregularities and chest tightness. Respiratory History: Reports: Other (See Below) Other Respiratory History: Patient states he has been exposed to "Black Mold". Hx respiratory issues, non specified. Gastrointestinal History: Reports: GERD Other Gastrointestinal History: Acid reflux. Neurological History: Reports: Migraines Psychiatric History: Reports: Aggressive/Hostile Behaviors, Antisocial Behaviors , Anxiety, Bipolar, Depression, Learning Disability, Mood Swings, Psych Hospitalization(s), Suicide Attempt, Suicidal Ideation, Other (See Below) Other Psychiatric History: alcohol syndrome. Endocrine/Metabolic History: Reports: Hypothyroidism Other Endocrine/Metabolic History: Patient states he is borderline diabetic. Hematologic History: Reports: None Dermatologic History: Reports: Psoriasis - Infectious Disease History Infectious Disease History: Reports: Chicken Pox - Past Surgical History HEENT Surgical History: Reports: None Social & Family History - Family History Family Medical History: Noncontributory Cardiac: Reports: Angina, Hypertension, [place] Other Cardiac Family History: Father at 42 due to heart related issues. Aunts and uncles have a history of cardiac issues. Respiratory: Reports: Other (See Below) Other Respiratory Family Hisory: Lung CA. - Caffeine Use Caffeine Use: Reports: Coffee, Soda, Tea Other Caffeine Use: 1-2 a day Caffeine Use Comment: Pt refused to answer questions - Living Situation & Occupation Living situation: Reports: Single ED ROS GENERAL - Review of Systems Review Of Systems: ROS reveals no pertinent complaints other than HPI. ED EXAM, GENERAL - Physical Exam Exam: See Below Free Text/Narrative:: He is a most pleasant, soft-spoken, calm and caring man I have ever seen in him compared all of his previous visits. On Depakote his personality has changed. He no longer has the "in your face communication." That is gone. The difference is refreshing and "palpable" this evening. Exam Limited By: No Limitations General Appearance: Alert, WD/WN, No Apparent Distress Eye Exam: Bilateral Eye: Normal Inspection Ears: Normal External Exam, Normal Canal, Hearing Grossly Normal, Normal TMs Ear Exam: Bilateral Ear: Auricle Normal, Canal Normal, TM normal Nose: Normal Inspection, Normal Mucosa, No Blood Throat/Mouth: Normal Inspection, Normal Lips, Normal Gums, Normal Oropharynx, Normal Voice, No Airway Compromise, Other (Fair dentition) Head: Atraumatic, Normocephalic Neck: Normal Inspection, Supple, Non-Tender, Full Range of Motion, Other (No thyromegaly) Respiratory/Chest: No Respiratory Distress, Lungs Clear, Normal Breath Sounds, No Accessory Muscle Use, Chest Non-Tender Cardiovascular: Normal Peripheral Pulses, No Edema, No Gallop, No JVD, No Murmur , No Rub Peripheral Pulses: 1+: Radial (L), Radial (R) GI/Abdominal: Normal Bowel Sounds, Soft, Non-Tender, No Organomegaly, No Distention, No Abnormal Bruit, Other (Modest 3 inch panniculus subcutaneous fat residual from his antecedent history of obesity. He has moderate right greater than left rectus abdominal discomfort when he performs partial ups. When he falls back down to a supine position there is no pain. (Suggests muscle strain)) (Male) Exam: No Hernia, Normal Inspection, Normal Prostate, Other (Testicle normal size. Prostate 2+ enlarged firm smooth surface without acute prostate perineal angle) Rectal (Males) Exam: Normal Exam, Normal Rectal Tone, Other (No stool noted. Just enough for smear - Hemoccult pending. Prostate smooth no nodules noted 2+ enlargement nontender not boggy. Firm.) Back Exam: Normal Inspection, Full Range of Motion Neurological: Alert, Oriented, CN II-XII Intact, Normal Cognition, Normal Gait, Normal Reflexes, No Motor/Sensory Deficits Psychiatric: Normal Affect, Normal Mood Skin Exam: Warm, Dry, Intact, Normal Color Course - Vital Signs Last Recorded V/S: Last Vital Signs Temp 36.7 C 01/16/19 22:10 Pulse 69 01/16/19 22:10 Resp 16 01/16/19 22:10 BP 151/89 H 01/16/19 22:10 Pulse Ox 99 01/16/19 22:10 - Orders/Labs/Meds Orders: Active Orders 24 hr Category Date Time Status CBC WITH AUTO DIFF [HEME] Urgent Lab 01/16/19 22:08 Ordered COMPREHENSIVE METABOLIC PN,CMP [CHEM] Urgent Lab 01/16/19 22:08 Ordered OCCULT BLOOD DIAGNOSTIC [OP] Stat Lab 01/16/19 22:08 Ordered Departure - Departure Time of Disposition: 22:30 (E has had a 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 Vital signs see her talkative and considered F edges of inappropriate patient disorder appear to be gone. With the symptoms of polydipsia polyuria and history of 300 mg percent home glucose testing presents with history suggestive diabetes. But this evenings absence of elevated glucose does not suggest laboratory diagnosis of diabetes. He's had glucose abnormlait documented in his problem list in the past and he was very obese. Now that he is no longer base his hyperglycemia is not present with tonight's normla glucose . He is losing weight and has gone from 260 pounds to 215 pounds in the past 4 months. The past 3 days he notes he has experienced blood in his stool his hemoglobin was above normal - 17 gm and his Hemoccult was negative. It is disconcerting that he has been excused from the [facility] and [facility] because of his bad behavior in the past. He should colonoscopy.He will need to inquire if the [facility] or [facility] will take him back. Then perhaps he can get colonoscopy to further evaluate his GI bleed hx and he will need to makes amends for previous bad behavior and reestablish a healthy patient/professional relationship. Otherwise he'll need to make arrangements to go to [facility] for further potential colonoscopy. His sister has history of Crohn's. It is possible his rectal bleeding may be an early manifestation of Crohn's.) Disposition: Home, Self-Care 01 Condition: Good Clinical Impression: Rectal bleeding - Discharge Information *PRESCRIPTION DRUG MONITORING PROGRAM REVIEWED*: Not Applicable *COPY OF PRESCRIPTION DRUG MONITORING REPORT IN PATIENT [place]: Not Applicable - My Orders Last 24 Hours: My Active Orders 01/16/19 22:08 CBC WITH AUTO DIFF [HEME] Urgent COMPREHENSIVE METABOLIC PN,CMP [CHEM] Urgent OCCULT BLOOD DIAGNOSTIC [OP] Stat - Assessment/Plan Last 24 Hours: My Active Orders 01/16/19 22:08 CBC WITH AUTO DIFF [HEME] Urgent COMPREHENSIVE METABOLIC PN,CMP [CHEM] Urgent OCCULT BLOOD DIAGNOSTIC [OP] Stat
[2019-01-16 22:18] VITALS: BP 151/89
== END 2019-01-16 23:30 | disposition home or self-care (01) ==
LOC: FB.ED 21:35
DX: K62.5 Hemorrhage of anus and rectum (principal); I10 Essential (primary) hypertension; K21.9 Gastro-esophageal reflux disease without esophagitis; E03.9 Hypothyroidism, unspecified; Z88.8 Allergy status to other drugs, medicaments and biological substances; Z79.899 Other long term (current) drug therapy
CPT/HCPCS: 36415; 80053; 81001; 82272; 85025; 99283

== ENCOUNTER 2019-01-19 20:01 | Emergency (ER) | payer MEDICARE, MEDICAID ==
[2019-01-19 20:38] VITALS: BP 110/58
--- NOTE | 2019-01-19 22:31 | EDM.PDOC ---
ED HPI GENERAL MEDICAL PROBLEM - General Chief Complaint: Gastrointestinal Problem Stated Complaint: BLOODY STOOLS Time Seen by Provider: 01/19/19 22:00 Source of Information: Reports: Patient History Limitations: Reports: No Limitations - History of Present Illness INITIAL COMMENTS - FREE TEXT/NARRATIVE: c/o BRBBR pt had same c/o 3d ago, came to ED, had hgb 17.2 and hemoccult neg has photo today of BRB on TP, on perianal exam pt showing BRB c/w an internal hemorrhage, MARY deferred, no active bleeding in ED - Related Data Allergies Allergy/AdvReac Type Severity Reaction Status Date / Time doxycycline Allergy Blisters, Verified 01/16/19 21:51 Photosensitivity hydrocodone bitartrate Allergy Difficulty Verified 01/16/19 21:51 [From Vicodin] Breathing Home Meds: Home Meds Divalproex Sodium 1,500 mg PO DAILY 01/16/19 [History] hydrOXYzine pamoate [Hydroxyzine Pamoate] 1 cap PO BID PRN 01/16/19 [History] Past Medical History HEENT History: Reports: Impaired Vision, Other (See Below) Other HEENT History: Wears glasses. Cardiovascular History: Reports: Hypertension, Other (See Below) Other Cardiovascular History: Hx of heart irregularities and chest tightness. Respiratory History: Reports: Other (See Below) Other Respiratory History: Patient states he has been exposed to "Black Mold". Hx respiratory issues, non specified. Gastrointestinal History: Reports: GERD Other Gastrointestinal History: Acid reflux. Neurological History: Reports: Migraines Other Neuro History: States headaches improved after taking magnesium. Psychiatric History: Reports: Aggressive/Hostile Behaviors, Antisocial Behaviors , Anxiety, Bipolar, Depression, Learning Disability, Mood Swings, Psych Hospitalization(s), Suicide Attempt, Suicidal Ideation, Other (See Below) Other Psychiatric History: alcohol syndrome. Endocrine/Metabolic History: Reports: Hypothyroidism Other Endocrine/Metabolic History: Patient states he is borderline diabetic. Hematologic History: Reports: None Dermatologic History: Reports: Psoriasis - Infectious Disease History Infectious Disease History: Reports: Chicken Pox - Past Surgical History HEENT Surgical History: Reports: None Social & Family History - Family History Family Medical History: Noncontributory Cardiac: Reports: Angina, Hypertension, [place] Other Cardiac Family History: Father at 42 due to heart related issues. Aunts and uncles have a history of cardiac issues. Respiratory: Reports: Other (See Below) Other Respiratory Family Hisory: Lung CA. - Tobacco Use Smoking Status *Q: Former Smoker Years of Tobacco use: 1 Used Tobacco, but Quit: Yes Month/Year Tobacco Last Used: cannot remember - Caffeine Use Caffeine Use: Reports: Coffee Other Caffeine Use: 1-2 a day Caffeine Use Comment: Pt refused to answer questions - Recreational Drug Use Recreational Drug Use: No - Living Situation & Occupation Living situation: Reports: Single ED ROS GENERAL - Review of Systems Review Of Systems: See Below Constitutional: Reports: No Symptoms HEENT: Reports: No Symptoms Respiratory: Reports: No Symptoms Cardiovascular: Reports: No Symptoms Endocrine: Reports: No Symptoms GI/Abdominal: Reports: Hematochezia, Other (no pain, says BMs have been soft altho not daily) : Reports: No Symptoms Musculoskeletal: Reports: No Symptoms Skin: Reports: No Symptoms Neurological: Reports: No Symptoms Psychiatric: Reports: No Symptoms Hematologic/Lymphatic: Reports: No Symptoms Immunologic: Reports: No Symptoms ED EXAM, GI/ABD - Physical Exam Exam: See Below Exam Limited By: No Limitations General Appearance: Alert, WD/WN, No Apparent Distress Respiratory/Chest: No Respiratory Distress, Lungs Clear, Normal Breath Sounds, No Accessory Muscle Use, Chest Non-Tender Cardiovascular: Regular Rate, Rhythm, No Edema, No JVD, No Murmur GI/Abdominal Exam: Soft, Non-Tender, No Distention, Other (perianal area with no swell and no tenderness, small amount of BRB is in the perianal area, no ext hemorrhoids, no protruding internal hemorrhoids, MARY deferred for pt comfort) Course - Vital Signs Last Recorded V/S: Last Vital Signs Temp 36.7 C 01/19/19 20:35 Pulse 73 01/19/19 20:35 Resp 15 01/19/19 20:35 BP 110/58 L 01/19/19 20:35 Pulse Ox 100 01/19/19 20:35 - Re-Assessments/Exams Free Text/Narrative Re-Assessment/Exam: 01/19/19 22:35 long discussion re likely int hemorrhoids, pt states he is banned from [facility] PCP is Dr Houston in [facility], already has apt with PCP in 4d medically stable Departure - Departure Time of Disposition: 22:26 Disposition: Home, Self-Care 01 Condition: Good Clinical Impression: Hematochezia - Discharge Information *PRESCRIPTION DRUG MONITORING PROGRAM REVIEWED*: Not Applicable *COPY OF PRESCRIPTION DRUG MONITORING REPORT IN PATIENT [place]: Not Applicable Referrals: PCP,None [Primary Care Provider] - Additional Instructions: You have a small amount of bright red blood in the perianal area that almost certainly is coming from an internal hemorrhoid. While you will continue to have blood on your toilet paper, sometimes a surgeon will need to remove the hemorrhoid which is a painless process. Often, a colonoscopy will be recommended. Your hemoglobin was 17.2 from 3 days ago and is within the normal range. See your doctor in 4 days as scheduled to discuss these issues further.
== END 2019-01-19 22:36 | disposition home or self-care (01) ==
LOC: FB.ED 20:01
DX: K92.1 Melena (principal); I10 Essential (primary) hypertension; K21.9 Gastro-esophageal reflux disease without esophagitis; E03.9 Hypothyroidism, unspecified; Z79.899 Other long term (current) drug therapy; Z87.891 Personal history of nicotine dependence; Z88.1 Allergy status to other antibiotic agents; Z88.6 Allergy status to analgesic agent
CPT/HCPCS: 99283

== ENCOUNTER 2019-01-25 21:50 | Emergency (ER) | payer MEDICARE, MEDICAID ==
--- NOTE | 2019-01-25 22:02 | EDM.PDOC ---
ED HPI GENERAL MEDICAL PROBLEM - General Chief Complaint: Respiratory Problem Stated Complaint: TROUBLE BREATHING Time Seen by Provider: 01/25/19 21:50 Source of Information: Reports: Patient History Limitations: Reports: No Limitations - History of Present Illness INITIAL COMMENTS - FREE TEXT/NARRATIVE: 33 y.o.w.m came to the ed because of allergy against the environment, requesting prednisone. No other acute med, issues. BP 128/68 RR 16 Pulse ox 100 % on RA temp 36.6 pulse 61 Onset Date: 01/25/19 Onset Time: 20:00 Duration: Hour(s): Location: Reports: Chest Quality: Reports: Other (cold) Severity: Mild Improves with: Reports: None Worsens with: Reports: None Context: Reports: Other - Related Data Allergies Allergy/AdvReac Type Severity Reaction Status Date / Time doxycycline Allergy Blisters, Verified 01/25/19 22:17 Photosensitivity hydrocodone bitartrate Allergy Difficulty Verified 01/25/19 22:17 [From Vicodin] Breathing Home Meds: Home Meds Divalproex Sodium 1,500 mg PO DAILY 01/16/19 [History] hydrOXYzine pamoate [Hydroxyzine Pamoate] 1 cap PO BID PRN 01/16/19 [History] Past Medical History HEENT History: Reports: Impaired Vision, Other (See Below) Other HEENT History: Wears glasses. Cardiovascular History: Reports: Hypertension, Other (See Below) Other Cardiovascular History: Hx of heart irregularities and chest tightness. Respiratory History: Reports: Other (See Below) Other Respiratory History: Patient states he has been exposed to "Black Mold". Hx respiratory issues, non specified. Gastrointestinal History: Reports: GERD Other Gastrointestinal History: Acid reflux. Neurological History: Reports: Migraines Other Neuro History: States headaches improved after taking magnesium. Psychiatric History: Reports: Aggressive/Hostile Behaviors, Antisocial Behaviors , Anxiety, Bipolar, Depression, Learning Disability, Mood Swings, Psych Hospitalization(s), Suicide Attempt, Suicidal Ideation, Other (See Below) Other Psychiatric History: alcohol syndrome. Endocrine/Metabolic History: Reports: Hypothyroidism Other Endocrine/Metabolic History: Patient states he is borderline diabetic. Hematologic History: Reports: None Dermatologic History: Reports: Psoriasis - Infectious Disease History Infectious Disease History: Reports: Chicken Pox - Past Surgical History HEENT Surgical History: Reports: None Social & Family History - Family History Family Medical History: Noncontributory Cardiac: Reports: Angina, Hypertension, [place] Other Cardiac Family History: Father at 42 due to heart related issues. Aunts and uncles have a history of cardiac issues. Respiratory: Reports: Other (See Below) Other Respiratory Family Hisory: Lung CA. - Caffeine Use Caffeine Use: Reports: Coffee Other Caffeine Use: 1-2 a day Caffeine Use Comment: Pt refused to answer questions - Living Situation & Occupation Living situation: Reports: Single ED ROS GENERAL - Review of Systems Review Of Systems: See Below Constitutional: Reports: No Symptoms HEENT: Reports: No Symptoms Respiratory: Reports: No Symptoms Cardiovascular: Reports: No Symptoms Endocrine: Reports: No Symptoms GI/Abdominal: Reports: No Symptoms : Reports: No Symptoms Musculoskeletal: Reports: No Symptoms Skin: Reports: No Symptoms Neurological: Reports: No Symptoms Psychiatric: Reports: No Symptoms Hematologic/Lymphatic: Reports: No Symptoms Immunologic: Reports: No Symptoms ED EXAM, GENERAL - Physical Exam Exam: See Below Exam Limited By: No Limitations General Appearance: Alert, WD/WN, No Apparent Distress Eye Exam: Bilateral Eye: Normal Inspection Ears: Normal External Exam Ear Exam: Bilateral Ear: Auricle Normal Nose: Normal Inspection, Normal Mucosa Throat/Mouth: Normal Inspection, Normal Lips, Normal Voice, No Airway Compromise Head: Atraumatic, Normocephalic Neck: Normal Inspection, Supple, Non-Tender Respiratory/Chest: No Respiratory Distress, Lungs Clear, Normal Breath Sounds, No Accessory Muscle Use, Chest Non-Tender Cardiovascular: Normal Peripheral Pulses, Regular Rate, Rhythm, No Edema, No Gallop, No JVD, No Murmur Peripheral Pulses: 1+: Brachial (L) GI/Abdominal: Normal Bowel Sounds (Male) Exam: Deferred Rectal (Males) Exam: Deferred Back Exam: Normal Inspection, Full Range of Motion Extremities: Normal Inspection, Normal Range of Motion, Non-Tender Neurological: Alert, Oriented, CN II-XII Intact, Normal Cognition, Normal Gait Psychiatric: Normal Affect, Normal Mood Skin Exam: Warm, Dry, Intact, Normal Color, No Rash Lymphatic: No Adenopathy Course - Vital Signs Text/Narrative:: 33 y.o.w.m came to the ed because of allergy against the environment, requesting prednisone. No other acute med, issues. BP 128/68 RR 16 Pulse ox 100 % on RA temp 36.6 pulse 61 PE: WNWD W M NAD Impression: No specific complains Tx: none Rexam: Pt was doing fine in the ed Plan: D/C with instructions Last Recorded V/S: Last Vital Signs Temp 36.8 C 01/25/19 22:00 Pulse 62 01/25/19 22:00 Resp 16 01/25/19 22:00 BP 128/68 01/25/19 22:00 Pulse Ox 100 01/25/19 22:00 Departure - Departure Time of Disposition: 22:00 Disposition: Home, Self-Care 01 Condition: Good Clinical Impression: Healthy male adult - Discharge Information Referrals: PCP,None [Primary Care Provider] - Forms: ED Department Discharge Additional Instructions: Please f/u with your PMD, please come back if your symptoms get worse acutely
[2019-01-25 22:16] VITALS: BP 128/68
== END 2019-01-25 22:10 | disposition home or self-care (01) ==
LOC: FB.ED 21:50
DX: Z00.00 Encounter for general adult medical examination without abnormal findings (principal); I10 Essential (primary) hypertension; F31.9 Bipolar disorder, unspecified; F41.9 Anxiety disorder, unspecified; Z88.1 Allergy status to other antibiotic agents; Z88.5 Allergy status to narcotic agent; Z79.899 Other long term (current) drug therapy
CPT/HCPCS: 99282

== ENCOUNTER 2019-03-13 19:47 | Emergency (ER) | payer MEDICARE, MEDICAID ==
[2019-03-13] MEDS ORDERED: Hydrocortisone/Neomycin/Polymyxin B Otic Susp 10 ML Bottle EARBOTH ONE (19:48)
[2019-03-13 20:07] VITALS: BP 129/76
--- NOTE | 2019-03-13 20:29 | EDM.PDOC ---
ED HPI GENERAL MEDICAL PROBLEM - General Chief Complaint: ENT Problem Stated Complaint: EAR INFECTION Time Seen by Provider: 03/13/19 19:47 Source of Information: Reports: Patient History Limitations: Reports: No Limitations - History of Present Illness INITIAL COMMENTS - FREE TEXT/NARRATIVE: 33 y.o.w.m with multiple visits to this ED came to te ed today because of right ear pain. Pt is using q tips to clean his ears. No N/V/D or any other acute med issues. BP 129/76 RR 18 Pulse ox 100% on RA Pulse 68 Temp 36.8 Onset Date: 03/13/19 Onset Time: 10:00 Duration: Hour(s):, Intermittent, Waxing/Waning Location: Reports: Face Quality: Reports: Ache, Burning, Same as Previous Episode Severity: Mild Improves with: Reports: None Worsens with: Reports: None Context: Reports: Other R ear Pain Score (Numeric/FACES): 4 - Related Data Allergies Allergy/AdvReac Type Severity Reaction Status Date / Time doxycycline Allergy Blisters, Verified 03/13/19 20:00 Photosensitivity hydrocodone bitartrate Allergy Difficulty Verified 03/13/19 20:00 [From Vicodin] Breathing Home Meds: Home Meds hydrOXYzine pamoate [Hydroxyzine Pamoate] 1 cap PO BID PRN 01/16/19 [History] Divalproex Sodium [Depakote ER] 1,000 mg PO DAILY 03/13/19 [History] Prazosin [Minpress] 1 mg PO BEDTIME 03/13/19 [History] buPROPion HCl [Wellbutrin Xl] 150 mg PO DAILY 03/13/19 [History] Past Medical History HEENT History: Reports: Impaired Vision, Other (See Below) Other HEENT History: Wears glasses. Cardiovascular History: Reports: Hypertension, Other (See Below) Other Cardiovascular History: Hx of heart irregularities and chest tightness. Respiratory History: Reports: Other (See Below) Other Respiratory History: Patient states he has been exposed to "Black Mold". Hx respiratory issues, non specified. Gastrointestinal History: Reports: GERD Other Gastrointestinal History: Acid reflux. Neurological History: Reports: Migraines Other Neuro History: States headaches improved after taking magnesium. Psychiatric History: Reports: Aggressive/Hostile Behaviors, Antisocial Behaviors , Anxiety, Bipolar, Depression, Learning Disability, Mood Swings, Psych Hospitalization(s), Suicide Attempt, Suicidal Ideation, Other (See Below) Other Psychiatric History: alcohol syndrome. Endocrine/Metabolic History: Reports: Hypothyroidism Other Endocrine/Metabolic History: Patient states he is borderline diabetic. Hematologic History: Reports: None Dermatologic History: Reports: Psoriasis - Infectious Disease History Infectious Disease History: Reports: Chicken Pox - Past Surgical History HEENT Surgical History: Reports: None Social & Family History - Family History Family Medical History: Noncontributory Cardiac: Reports: Angina, Hypertension, [place] Other Cardiac Family History: Father at 42 due to heart related issues. Aunts and uncles have a history of cardiac issues. Respiratory: Reports: Other (See Below) Other Respiratory Family Hisory: Lung CA. - Tobacco Use Smoking Status *Q: Former Smoker Used Tobacco, but Quit: Yes Month/Year Tobacco Last Used: 6 - Caffeine Use Caffeine Use: Reports: Coffee, Energy Drinks, Soda, Tea Other Caffeine Use: 1-2 a day Caffeine Use Comment: Pt refused to answer questions - Recreational Drug Use Recreational Drug Use: Yes Drug Use in Last 12 Months: No - Living Situation & Occupation Living situation: Reports: Single ED ROS ENT - Review of Systems Review Of Systems: See Below Constitutional: Reports: No Symptoms HEENT: Reports: Ear Pain Respiratory: Reports: No Symptoms Cardiovascular: Reports: No Symptoms Endocrine: Reports: No Symptoms GI/Abdominal: Reports: No Symptoms : Reports: No Symptoms Musculoskeletal: Reports: No Symptoms Skin: Reports: No Symptoms Neurological: Reports: No Symptoms Psychiatric: Reports: No Symptoms Hematologic/Lymphatic: Reports: No Symptoms Immunologic: Reports: No Symptoms ED EXAM, ENT - Physical Exam Exam: See Below Exam Limited By: No Limitations General Appearance: Alert, WD/WN, Mild Distress Eye Exam: Bilateral Eye: Abnormal EOM Ears: Normal TMs, Canal Material, Canal Swelling Nose: Normal Inspection, Normal Mucousa, No Blood Mouth/Throat: Normal Inspection, Normal Gums, Normal Lips, Normal Oropharynx Head: Atraumatic, Normocephalic Neck: Normal Inspection, Supple, Non-Tender, Full Range of Motion Respiratory/Chest: No Respiratory Distress, Lungs Clear, Normal Breath Sounds, Chest Non-Tender Cardiovascular: Normal Peripheral Pulses, Regular Rate, Rhythm, No Edema, No Gallop, No JVD, No Murmur GI/Abdominal: Normal Bowel Sounds, Soft, Non-Tender, No Organomegaly, No Mass, Pelvis Stable (Male) Exam: Deferred Rectal (Males) Exam: Deferred Back: Normal Inspection Extremities: Normal Inspection Neurological: Alert, Oriented, CN II-XII Intact, Normal Cognition, Normal Gait Psychiatric: Normal Affect, Normal Mood Skin: Warm, Dry, Intact, Normal Color, No Rash Lymphatic: No Adenopathy Course - Vital Signs Text/Narrative:: 33 y.o.w.m with multiple visits to this ED came to te ed today because of right ear pain. Pt is using q tips to clean his ears. No N/V/D or any other acute med issues. BP 129/76 RR 18 Pulse ox 100% on RA Pulse 68 Temp 36.8 PE: WNWD W M with reigt external ear pain Impression: Otitis externa right ear Tx: Cortisporin ear drops Reexam: Improved Plan: D/C with instructions Last Recorded V/S: Last Vital Signs Temp 36.1 C 03/13/19 19:50 Pulse 74 03/13/19 20:45 Resp 18 03/13/19 20:45 BP 129/76 03/13/19 20:45 Pulse Ox 99 03/13/19 20:45 Departure - Departure Time of Disposition: 20:27 Disposition: Home, Self-Care 01 Condition: Good Clinical Impression: Otitis externa - Discharge Information Instructions: Otitis Externa, [id number], Hydrocortisone; Neomycin; Polymyxin B ear solution Referrals: Abbie Pimentel [facility] [Primary Care Provider] - Forms: ED Department Discharge Additional Instructions: Please apply Cortisporin 3 ear drops to R ear 3 times a day for 5 days as recommended. Please follow up as needed if pain not improving, come back if your symptoms get worse acutely
== END 2019-03-13 20:48 | disposition home or self-care (01) ==
LOC: FB.ED 19:47
DX: H60.91 Unspecified otitis externa, right ear (principal); I10 Essential (primary) hypertension; K21.9 Gastro-esophageal reflux disease without esophagitis; E03.9 Hypothyroidism, unspecified; Z87.891 Personal history of nicotine dependence; Z88.1 Allergy status to other antibiotic agents; Z88.5 Allergy status to narcotic agent; Z79.899 Other long term (current) drug therapy
CPT/HCPCS: 99282; A9270-GY

== ENCOUNTER 2019-03-29 20:13 | Emergency (ER) | payer MEDICARE, MEDICAID ==
--- NOTE | 2019-03-29 20:30 | EDM.PDOC ---
ED HPI GENERAL MEDICAL PROBLEM - General Stated Complaint: NOT FEELING GOOD Time Seen by Provider: 03/29/19 20:24 Source of Information: Reports: Patient History Limitations: Reports: No Limitations - History of Present Illness INITIAL COMMENTS - FREE TEXT/NARRATIVE: 33 y.o.w.m with multiple visits to this ED came again with acute cough-stared smoking again-and ran out of his albuterol solution, No F/C no other acute med issues BP 104/72 RR 16 Pulse ox 100% on RA Temp 36.6 Pulse 62 Onset Date: 03/29/19 Onset Time: 04:00 Duration: Hour(s):, Intermittent Location: Reports: Chest - Related Data Allergies Allergy/AdvReac Type Severity Reaction Status Date / Time doxycycline Allergy Blisters, Verified 03/29/19 20:29 Photosensitivity hydrocodone bitartrate Allergy Difficulty Verified 03/29/19 20:29 [From Vicodin] Breathing Home Meds: Home Meds hydrOXYzine pamoate [Hydroxyzine Pamoate] 1 cap PO BID PRN 01/16/19 [History] Divalproex Sodium [Depakote ER] 1,000 mg PO DAILY 03/13/19 [History] Prazosin [Minpress] 1 mg PO BEDTIME 03/13/19 [History] buPROPion HCl [Wellbutrin Xl] 150 mg PO DAILY 03/13/19 [History] Albuterol Sulfate 2.5 mg IH Q4HR PRN #1 box 03/29/19 [Rx] Sulfamethoxazole/Trimethoprim [Bactrim Ds Tablet] 1 each PO BID #20 tablet 03/29 [Rx] Past Medical History HEENT History: Reports: Impaired Vision, Other (See Below) Other HEENT History: Wears glasses. Cardiovascular History: Reports: Hypertension, Other (See Below) Other Cardiovascular History: Hx of heart irregularities and chest tightness. Respiratory History: Reports: Other (See Below) Other Respiratory History: Patient states he has been exposed to "Black Mold". Hx respiratory issues, non specified. Gastrointestinal History: Reports: GERD Other Gastrointestinal History: Acid reflux. Neurological History: Reports: Migraines Other Neuro History: States headaches improved after taking magnesium. Psychiatric History: Reports: Aggressive/Hostile Behaviors, Antisocial Behaviors , Anxiety, Bipolar, Depression, Learning Disability, Mood Swings, Psych Hospitalization(s), Suicide Attempt, Suicidal Ideation, Other (See Below) Other Psychiatric History: alcohol syndrome. Endocrine/Metabolic History: Reports: Hypothyroidism Other Endocrine/Metabolic History: Patient states he is borderline diabetic. Hematologic History: Reports: None Dermatologic History: Reports: Psoriasis - Infectious Disease History Infectious Disease History: Reports: Chicken Pox - Past Surgical History HEENT Surgical History: Reports: None Social & Family History - Family History Family Medical History: Noncontributory Cardiac: Reports: Angina, Hypertension, [place] Other Cardiac Family History: Father at 42 due to heart related issues. Aunts and uncles have a history of cardiac issues. Respiratory: Reports: Other (See Below) Other Respiratory Family Hisory: Lung CA. - Caffeine Use Caffeine Use: Reports: Coffee, Energy Drinks, Soda, Tea Other Caffeine Use: 1-2 a day Caffeine Use Comment: Pt refused to answer questions - Living Situation & Occupation Living situation: Reports: Single ED ROS GENERAL - Review of Systems Review Of Systems: See Below Constitutional: Reports: No Symptoms HEENT: Reports: No Symptoms Respiratory: Reports: Cough Cardiovascular: Reports: No Symptoms Endocrine: Reports: No Symptoms GI/Abdominal: Reports: No Symptoms : Reports: No Symptoms Musculoskeletal: Reports: No Symptoms Skin: Reports: No Symptoms Neurological: Reports: No Symptoms Psychiatric: Reports: No Symptoms Hematologic/Lymphatic: Reports: No Symptoms Immunologic: Reports: No Symptoms ED EXAM, GENERAL - Physical Exam Exam: See Below Exam Limited By: No Limitations General Appearance: Alert, WD/WN, Mild Distress Eye Exam: Bilateral Eye: Normal Inspection Ears: Normal External Exam Ear Exam: Bilateral Ear: Auricle Normal Nose: Normal Inspection, Normal Mucosa, No Blood Throat/Mouth: Normal Inspection, Normal Lips, Normal Voice, No Airway Compromise Head: Atraumatic, Normocephalic Neck: Normal Inspection, Supple, Non-Tender, Full Range of Motion Respiratory/Chest: No Respiratory Distress, Rhonchi Cardiovascular: Normal Peripheral Pulses, Regular Rate, Rhythm, No Edema, No Gallop GI/Abdominal: Normal Bowel Sounds, Soft (Male) Exam: Deferred Rectal (Males) Exam: Deferred Back Exam: Normal Inspection, Full Range of Motion Extremities: Normal Inspection, Normal Range of Motion, Non-Tender Neurological: Alert, Oriented, CN II-XII Intact, Normal Cognition, Normal Gait Psychiatric: Normal Affect, Normal Mood Skin Exam: Warm, Dry, Intact, Normal Color Lymphatic: No Adenopathy Course - Vital Signs Text/Narrative:: 33 y.o.w.m with multiple visits to this ED came again with acute cough-stared smoking again-and ran out of his albuterol solution, No F/C no other acute med issues BP 104/72 RR 16 Pulse ox 100% on RA Temp 36.6 Pulse 62 PE: WNWD WM with acute cough Impression: Meds refill, acute bronchitis Tx: Prescription meds Reexam: Pt was doing fine in the Ed Plan: D/c with instructions Last Recorded V/S: Last Vital Signs Temp 36.6 C 03/29/19 20:24 Pulse 62 03/29/19 20:24 Resp 16 03/29/19 20:24 BP 104/72 03/29/19 20:24 Pulse Ox 100 03/29/19 20:24 Departure - Departure Time of Disposition: 20:25 Disposition: Home, Self-Care 01 Condition: Good Clinical Impression: Acute bronchitis, Medication refill - Discharge Information Prescriptions: Albuterol Sulfate 2.5 mg IH Q4HR PRN #1 box PRN Reason: Cough Sulfamethoxazole/Trimethoprim [Bactrim Ds Tablet] 1 each PO BID #20 tablet Instructions: Steps to Quit Smoking, [id number], Acute Bronchitis, Adult Referrals: PCP,None [Primary Care Provider] - Forms: ED Department Discharge Additional Instructions: Please take the meds as recommended, please f/u, come back if your symptoms get worse acutely
[2019-03-29 20:42] VITALS: BP 104/72
== END 2019-03-29 20:34 | disposition home or self-care (01) ==
LOC: FB.ED 20:13
DX: J20.9 Acute bronchitis, unspecified (principal); Z76.0 Encounter for issue of repeat prescription; I10 Essential (primary) hypertension; K21.9 Gastro-esophageal reflux disease without esophagitis; E03.9 Hypothyroidism, unspecified; Z79.899 Other long term (current) drug therapy; Z88.1 Allergy status to other antibiotic agents; Z88.6 Allergy status to analgesic agent
CPT/HCPCS: 99283

== ENCOUNTER 2019-04-17 23:16 | Emergency (ER) | payer MEDICARE, MEDICAID ==
--- NOTE | 2019-04-17 23:46 | EDM.PDOCBH ---
ED HPI GENERAL MEDICAL PROBLEM - General Stated Complaint: NEEDS TREATMENT FOR DEPRESSION Time Seen by Provider: 04/17/19 23:25 Source of Information: Reports: Patient History Limitations: Reports: No Limitations - History of Present Illness INITIAL COMMENTS - FREE TEXT/NARRATIVE: 33-year-old male with long-standing history of anxiety and depression with previous suicide attempts who presents to the emergency department stating "I need treatment". He tells me that he has been having suicidal thoughts for some time and he feels that his life is horrible and that he is the cause of all of his problems and that he really should not be alive anymore. Today at approximately 5 PM, he reports he took "handful"of Vistaril (approximately 20- 3025 mg capsules). He reports that he went to sleep and he woke up at approximately 11 PM and decided that he to come in to the emergency department for help. He has had no nausea or vomiting. He denies doing anything else to harm himself. He does admit to suicidal ideation. He denies any pain at present other than his mental anguish and his mental anguish is severe. There are no other associated signs or symptoms. There are no other modifying factors. Onset: Other (Ongoing depression for some time with suicidal thoughts for days and a suicide attempt by taking an overdose of Vistaril and 5 PM today) Duration: Getting Worse Location: Reports: Other (No pain) Quality: Reports: Other (Nonapplicable) Severity: Severe (Mental anguish is severe) Improves with: Reports: None Worsens with: Reports: None Context: Reports: Other (Reports a lot of stressors and "bad things" in his life.) Associated Symptoms: Reports: No Other Symptoms Treatments ROOM SERVICE MANAGER: Reports: Other (see below) (Nothing) - Related Data Allergies Allergy/AdvReac Type Severity Reaction Status Date / Time doxycycline Allergy Blisters, Verified 03/29/19 20:29 Photosensitivity hydrocodone bitartrate Allergy Difficulty Verified 03/29/19 20:29 [From Vicodin] Breathing Home Meds: Home Meds hydrOXYzine pamoate [Hydroxyzine Pamoate] 1 cap PO BID PRN 01/16/19 [History] Divalproex Sodium [Depakote ER] 1,000 mg PO DAILY 03/13/19 [History] Sulfamethoxazole/Trimethoprim [Bactrim Ds Tablet] 1 each PO BID #20 tablet 03/29 [Rx] Past Medical History HEENT History: Reports: Impaired Vision, Other (See Below) Other HEENT History: Wears glasses. Cardiovascular History: Reports: Hypertension, Other (See Below) Other Cardiovascular History: Hx of heart irregularities and chest tightness. Respiratory History: Reports: Other (See Below) Other Respiratory History: Patient states he has been exposed to "Black Mold". Hx respiratory issues, non specified. Gastrointestinal History: Reports: GERD Other Gastrointestinal History: Acid reflux. Neurological History: Reports: Migraines Other Neuro History: States headaches improved after taking magnesium. Psychiatric History: Reports: Aggressive/Hostile Behaviors, Antisocial Behaviors , Anxiety, Bipolar, Depression, Learning Disability, Mood Swings, Psych Hospitalization(s), Suicide Attempt, Suicidal Ideation, Other (See Below) Other Psychiatric History: alcohol syndrome. Endocrine/Metabolic History: Reports: Hypothyroidism Other Endocrine/Metabolic History: Patient states he is borderline diabetic. Dermatologic History: Reports: Psoriasis - Infectious Disease History Infectious Disease History: Reports: Chicken Pox - Past Surgical History HEENT Surgical History: Reports: None Other Surgical History Comment: Denies any previous surgeries. Social & Family History - Family History Family Medical History: Noncontributory Cardiac: Reports: Angina, Hypertension, [place] Other Cardiac Family History: Father at 42 due to heart related issues. Aunts and uncles have a history of cardiac issues. Respiratory: Reports: Other (See Below) Other Respiratory Family Hisory: Lung CA. - Tobacco Use Smoking Status *Q: Current Every Day Smoker - Caffeine Use Caffeine Use: Reports: Coffee, Energy Drinks, Soda, Tea Other Caffeine Use: 1-2 a day Caffeine Use Comment: Pt refused to answer questions - Alcohol Use Alcohol Use History: Yes Alcohol Use Comment: Patient reports that he has been sober from alcohol for the past 5 months. - Living Situation & Occupation Living situation: Reports: Single ED ROS GENERAL - Review of Systems Review Of Systems: See Below Constitutional: Reports: No Symptoms HEENT: Reports: No Symptoms Respiratory: Reports: No Symptoms Cardiovascular: Reports: No Symptoms Endocrine: Reports: No Symptoms GI/Abdominal: Reports: No Symptoms : Reports: No Symptoms Musculoskeletal: Reports: No Symptoms Skin: Reports: No Symptoms Neurological: Reports: No Symptoms Psychiatric: Reports: Anxiety, Depression, Suicidal Ideation Hematologic/Lymphatic: Reports: No Symptoms Immunologic: Reports: No Symptoms ED EXAM, BEHAVIORAL HEALTH - Physical Exam Exam: See Below Exam Limited By: No Limitations General Appearance: Alert, WD/WN, Mild Distress, Other (Patient is awake, alert and appropriately responsive.) Eye Exam: Bilateral Eye: EOMI, Normal Inspection, PERRL Ears: Normal External Exam Nose: Normal Inspection, Normal Mucosa, No Blood Throat/Mouth: Normal Inspection, Normal Oropharynx, Normal Voice, No Airway Compromise Head: Atraumatic, Normocephalic Neck: Normal Inspection, Supple, Non-Tender, Full Range of Motion Respiratory/Chest: No Respiratory Distress, Lungs Clear, Normal Breath Sounds, No Accessory Muscle Use, Chest Non-Tender Cardiovascular: Normal Peripheral Pulses, Regular Rate, Rhythm, No Murmur, No Rub GI/Abdominal: Normal Bowel Sounds, Soft, Non-Tender, No Organomegaly, No Mass Back Exam: Normal Inspection Extremities: Normal Inspection, Normal Range of Motion, Non-Tender, No Pedal Edema, Normal Capillary Refill Neurological: Alert, CN II-XII Intact, Normal Cognition, No Motor/Sensory Deficits, Oriented x 3 Psychiatric: Alert, Normal Cognition, Oriented, Depressed Mood Skin Exam: Warm, Dry, Intact, Normal color, No rash. No: Signs of self injury EKG INTERPRETATION EKG Date: 04/18/19 Time: 00:13 Rhythm: NSR Rate (Beats/Min): 60 [place]: Normal P-Wave: Present QRS: Normal ST-T: Normal QT: Normal Comparison: No Change (From EKG performed on 07/31/2018) COURSE, BEHAVIORAL HEALTH COMP - Course Orders, Labs, Meds: Active Orders 24 hr Category Date Time Status EKG Documentation Completion [RC] ASDIRECTED Care 04/17/19 23:40 Active DRUG SCREEN, URINE ALERE [URCHEM] Stat Lab 04/17/19 23:39 Ordered EKG 12 Lead [EK] Routine Ther 04/17/19 23:39 Ordered Laboratory Tests 04/18/19 04/18/19 04/18/19 Range/Units 00:01 00:01 00:01 WBC 6.3 (4.5-12.0) X10-3/uL RBC 4.93 (4.30-5.75) x10(6)uL Hgb 16.0 (13.5-17.8) g/dL Hct 45.4 (30.0-51.3) % MCV 92.2 (80-96) fL MCH 32.5 (27.7-33.6) pg MCHC 35.2 (32.2-35.4) g/dL RDW 13.0 (11.5-15.5) % Plt Count 198 (125-369) X10(3)uL MPV 9.2 (7.4-10.4) fL Neut % (Auto) 44.1 L (46-82) % Lymph % (Auto) 43.2 H (13-37) % Bureau % (Auto) 7.0 (4-12) % Eos % (Auto) 5 (1.0-5.0) % Baso % (Auto) 1 (0-2) % Neut # (Auto) 2.9 (1.6-8.3) # Lymph # (Auto) 2.7 (0.6-5.0) # Bureau # (Auto) 0.4 (0.0-1.3) # Eos # (Auto) 0.3 (0.0-0.8) # Baso # (Auto) 0.0 (0.0-0.2) # Sodium 143 (135-145) mmol/L Potassium 3.6 (3.5-5.3) mmol/L Chloride 107 (100-110) mmol/L Carbon Dioxide 27 (21-32) mmol/L BUN 12 (7-18) mg/dL Creatinine 0.8 (0.70-1.30) mg/dL Est Cr Clr Drug Dosing TNP Estimated GFR (MDRD) > 60 (>60) BUN/Creatinine Ratio 15.0 (9-20) Glucose 120 H (80-116) mg/dL Calcium 8.7 (8.6-10.2) mg/dL Total Bilirubin 0.2 (0.1-1.3) mg/dL AST 19 D (5-25) IU/L ALT 39 H (12-36) U/L Alkaline Phosphatase 58 (56-112) IU/L Total Protein 6.8 (6.0-8.0) g/dL Albumin 3.7 (3.5-5.2) g/dL Globulin 3.1 g/dL Albumin/Globulin Ratio 1.2 TSH, Ultra Sensitive (0.36-3.74) IU/mL Salicylates 1.8 L (<2.8) mg/dL Acetaminophen < 2 L (<2) ug/mL Ethyl Alcohol < 0.03 (<0.03) % 04/18/19 Range/Units 00:01 WBC (4.5-12.0) X10-3/uL RBC (4.30-5.75) x10(6)uL Hgb (13.5-17.8) g/dL Hct (30.0-51.3) % MCV (80-96) fL MCH (27.7-33.6) pg MCHC (32.2-35.4) g/dL RDW (11.5-15.5) % Plt Count (125-369) X10(3)uL MPV (7.4-10.4) fL Neut % (Auto) (46-82) % Lymph % (Auto) (13-37) % Bureau % (Auto) (4-12) % Eos % (Auto) (1.0-5.0) % Baso % (Auto) (0-2) % Neut # (Auto) (1.6-8.3) # Lymph # (Auto) (0.6-5.0) # Bureau # (Auto) (0.0-1.3) # Eos # (Auto) (0.0-0.8) # Baso # (Auto) (0.0-0.2) # Sodium (135-145) mmol/L Potassium (3.5-5.3) mmol/L Chloride (100-110) mmol/L Carbon Dioxide (21-32) mmol/L BUN (7-18) mg/dL Creatinine (0.70-1.30) mg/dL Est Cr Clr Drug Dosing Estimated GFR (MDRD) (>60) BUN/Creatinine Ratio (9-20) Glucose (80-116) mg/dL Calcium (8.6-10.2) mg/dL Total Bilirubin (0.1-1.3) mg/dL AST (5-25) IU/L ALT (12-36) U/L Alkaline Phosphatase (56-112) IU/L Total Protein (6.0-8.0) g/dL Albumin (3.5-5.2) g/dL Globulin g/dL Albumin/Globulin Ratio TSH, Ultra Sensitive 3.05 (0.36-3.74) IU/mL Salicylates (<2.8) mg/dL Acetaminophen (<2) ug/mL Ethyl Alcohol (<0.03) % Re-Assessment/Re-Exam: 04/18/2019, 2 AM: Blood tests are normal at this point. Blood alcohol was negative. The patient has not provided us with urine as of yet. He has been belligerent this provider and verbally threatening and aggressive and this required us to call the [employer]als squad police officer. Once here, the patient did de-escalate. We are attempting to collect a urine at this time for urine drug test but he is thus far being uncooperative and providing us with urine. We have discussed his case with the intake nurse at [facility] in [place] and we will be faxing information to them for them to make a decision about accepting the patient. The patient has stated suicidal ideation and has reported a suicide plan and attempt earlier tonight with Vistaril. He has been placed on a 72 hour hold in regard to this. He does not appear to have any adverse effects from this overdose reported earlier tonight. We will await the decision from the staff at [facility]. 04/18/2019, 3 AM: [facility] has accepted the patient. We are attempting to arrange transport for the patient at this time. He has provided us with a urine specimen for urine drug screen and that has been sent to the lab at this time. He remains vitally stable and medically cleared for psychiatric admission. Medical Clearance: 04/18/19 03:02: Patient is medically cleared for psychiatric admission. Departure - Departure Time of Disposition: 03:15 Disposition: DC/Tfer to Psych Hosp/Unit 65 Condition: Fair (Stable) Clinical Impression: Suicidal ideation, Suicide attempt Drug overdose, intentional Qualifiers: Encounter type: initial encounter Qualified Code(s): T50.902A - Poisoning by unspecified drugs, medicaments and biological substances, intentional self-harm , initial encounter Depression Qualifiers: Depression Type: unspecified Qualified Code(s): F32.9 - Major depressive disorder, single episode, unspecified - Discharge Information Referrals: Abbie Pimentel NP [Primary Care Provider] - - My Orders Last 24 Hours: My Active Orders 04/17/19 23:39 DRUG SCREEN, URINE ALERE [URCHEM] Stat EKG 12 Lead [EK] Routine 04/17/19 23:40 EKG Documentation Completion [RC] ASDIRECTED - Assessment/Plan Last 24 Hours: My Active Orders 04/17/19 23:39 DRUG SCREEN, URINE ALERE [URCHEM] Stat EKG 12 Lead [EK] Routine 04/17/19 23:40 EKG Documentation Completion [RC] ASDIRECTED
[2019-04-18 00:24] LABS: ACETAMINOPHEN < 2 ug/mL (<2)
[2019-04-18 20:40] VITALS: BP 134/76
== END 2019-04-18 03:45 ==
LOC: FB.ED 23:16
DX: T43.592A Poisoning by other antipsychotics and neuroleptics, intentional self-harm, initial encounter (principal); F32.9 Major depressive disorder, single episode, unspecified; I10 Essential (primary) hypertension; F41.9 Anxiety disorder, unspecified; E03.9 Hypothyroidism, unspecified; F17.200 Nicotine dependence, unspecified, uncomplicated; Z88.1 Allergy status to other antibiotic agents; Z88.5 Allergy status to narcotic agent; Z79.899 Other long term (current) drug therapy
CPT/HCPCS: 36415; 80053; 80305; 84443; 85025; 93005; 99284; G0480

== ENCOUNTER 2019-06-20 01:39 | Emergency (ER) | payer MEDICARE, MEDICAID ==
--- NOTE | 2019-06-20 02:28 | EDM.PDOC ---
ED HPI GENERAL MEDICAL PROBLEM - General Chief Complaint: Abdominal Pain Stated Complaint: ABDOMINAL PAIN Time Seen by Provider: 06/20/19 02:15 Source of Information: Reports: Patient - History of Present Illness INITIAL COMMENTS - FREE TEXT/NARRATIVE: Patient is a 34 yo WM who presented to the ED because of constipation for 3-4 days. He had a hard stool yesterday and couldn't have an entire bowel movement because it's hard. - Related Data Allergies Allergy/AdvReac Type Severity Reaction Status Date / Time doxycycline Allergy Blisters, Verified 03/29/19 20:29 Photosensitivity hydrocodone bitartrate Allergy Difficulty Verified 03/29/19 20:29 [From Vicodin] Breathing Home Meds: Home Meds hydrOXYzine pamoate [Hydroxyzine Pamoate] 1 cap PO BID PRN 01/16/19 [History] Divalproex Sodium [Depakote ER] 1,000 mg PO DAILY 03/13/19 [History] Sulfamethoxazole/Trimethoprim [Bactrim Ds Tablet] 1 each PO BID #20 tablet 03/29 [Rx] Past Medical History HEENT History: Reports: Impaired Vision, Other (See Below) Other HEENT History: Wears glasses. Cardiovascular History: Reports: Hypertension, Other (See Below) Other Cardiovascular History: Hx of heart irregularities and chest tightness. Respiratory History: Reports: Other (See Below) Other Respiratory History: Patient states he has been exposed to "Black Mold". Hx respiratory issues, non specified. Gastrointestinal History: Reports: GERD Other Gastrointestinal History: Acid reflux. Neurological History: Reports: Migraines Other Neuro History: States headaches improved after taking magnesium. Psychiatric History: Reports: Aggressive/Hostile Behaviors, Antisocial Behaviors , Anxiety, Bipolar, Depression, Learning Disability, Mood Swings, Psych Hospitalization(s), Suicide Attempt, Suicidal Ideation, Other (See Below) Other Psychiatric History: alcohol syndrome. Endocrine/Metabolic History: Reports: Hypothyroidism Other Endocrine/Metabolic History: Patient states he is borderline diabetic. Hematologic History: Reports: None Dermatologic History: Reports: Psoriasis - Infectious Disease History Infectious Disease History: Reports: Chicken Pox - Past Surgical History HEENT Surgical History: Reports: None Other Surgical History Comment: Denies any previous surgeries. Social & Family History - Family History Family Medical History: Noncontributory Cardiac: Reports: Angina, Hypertension, [place] Other Cardiac Family History: Father at 42 due to heart related issues. Aunts and uncles have a history of cardiac issues. Respiratory: Reports: Other (See Below) Other Respiratory Family Hisory: Lung CA. - Caffeine Use Caffeine Use: Reports: Coffee, Energy Drinks, Soda, Tea Other Caffeine Use: 1-2 a day Caffeine Use Comment: Pt refused to answer questions - Living Situation & Occupation Living situation: Reports: Single ED ROS GENERAL - Review of Systems Review Of Systems: See Below Constitutional: Reports: No Symptoms HEENT: Reports: No Symptoms Respiratory: Reports: No Symptoms Cardiovascular: Reports: No Symptoms Endocrine: Reports: No Symptoms GI/Abdominal: Reports: Constipation. Denies: Diarrhea, Nausea, Vomiting : Reports: No Symptoms Musculoskeletal: Reports: No Symptoms Skin: Reports: No Symptoms Neurological: Reports: No Symptoms Psychiatric: Reports: No Symptoms ED EXAM, GI/ABD - Physical Exam Exam: See Below Exam Limited By: No Limitations General Appearance: Alert, No Apparent Distress Ears: Normal External Exam, Normal Canal, Hearing Grossly Normal Nose: Normal Inspection, Normal Mucosa Throat/Mouth: Normal Inspection, Normal Lips, Normal Teeth, Normal Gums Head: Atraumatic, Normocephalic Neck: Normal Inspection, Supple, Non-Tender, Full Range of Motion Respiratory/Chest: No Respiratory Distress, Lungs Clear, Normal Breath Sounds, No Accessory Muscle Use, Chest Non-Tender Cardiovascular: Normal Peripheral Pulses, Regular Rate, Rhythm, No Edema, No Gallop, No JVD, No Murmur, No Rub GI/Abdominal Exam: Normal Bowel Sounds, Soft, Non-Tender, No Organomegaly, No Distention Psychiatric: Normal Affect Skin Exam: Warm, Dry, Intact Course - Vital Signs Text/Narrative:: reassurasne see DI on constipation Departure - Departure Time of Disposition: 02:20 Disposition: DC/Tfer to [facility] Condition: Good Clinical Impression: Constipation Qualifiers: Constipation type: unspecified constipation type Qualified Code(s): K59.00 - Constipation, unspecified - Discharge Information Instructions: Constipation, Adult Referrals: Abbie Pimentel [employer]PENDENCY PROFESSIONAL [Primary Care Provider] - Forms: ED Department Discharge Additional Instructions: please read discharge instructions on constipation increase oral fluids miralax powder-dissolve 2 scoops in 2 glasses of water then drink then entire solution . Do this once daily until you have a normal bowel movement. follow up as needed
[2019-06-20 03:02] VITALS: BP 106/62
== END 2019-06-20 02:30 | disposition home or self-care (01) ==
LOC: FB.ED 01:39
DX: K59.00 Constipation, unspecified (principal); I10 Essential (primary) hypertension; Z88.8 Allergy status to other drugs, medicaments and biological substances; Z88.1 Allergy status to other antibiotic agents; Z79.899 Other long term (current) drug therapy
CPT/HCPCS: 99283

== ENCOUNTER 2020-04-06 04:56 | Emergency (ER) | payer MEDICARE, MEDICAID ==
[2020-04-06] MEDS ORDERED: diphenhydrAMINE 50 MG/ML SDV IM ONE (04:57)
[2020-04-06] MEDS ORDERED: methylPREDNISolone Sodium Succinate 125 MG/2 ML SDV IM ONE (04:57)
--- NOTE | 2020-04-06 11:44 | EDM.PDOC ---
ED HPI GENERAL MEDICAL PROBLEM - General Stated Complaint: ALLERGIC REACTION Time Seen by Provider: 04/06/20 05:35 Source of Information: Reports: Patient History Limitations: Reports: No Limitations - History of Present Illness INITIAL COMMENTS - FREE TEXT/NARRATIVE: Patient presented to the ED because of swelling of his tongue,choking sensation. He denies any dyspnea. He has a history of food allergy and it could be that the pizza he ate last night have whole milk on it. He is otherwise vitally stable upon his triage. - Related Data Allergies Allergy/AdvReac Type Severity Reaction Status Date / Time doxycycline Allergy Blisters, Verified 06/20/19 03:03 Photosensitivity hydrocodone bitartrate Allergy Difficulty Verified 06/20/19 03:03 [From Vicodin] Breathing Home Meds: Home Meds hydrOXYzine pamoate [Hydroxyzine Pamoate] 1 cap PO BID PRN 01/16/19 [History] Divalproex Sodium [Depakote ER] 1,000 mg PO DAILY 03/13/19 [History] buPROPion HCL [Wellbutrin Xl] 300 mg PO DAILY 06/20/19 [History] Past Medical History HEENT History: Reports: Impaired Vision, Other (See Below) Other HEENT History: Wears glasses. Cardiovascular History: Reports: Hypertension, Other (See Below) Other Cardiovascular History: Hx of heart irregularities and chest tightness. Respiratory History: Reports: Other (See Below) Other Respiratory History: Patient states he has been exposed to "Black Mold". Hx respiratory issues, non specified. Gastrointestinal History: Reports: GERD Other Gastrointestinal History: Acid reflux. Neurological History: Reports: Migraines Other Neuro History: States headaches improved after taking magnesium. Psychiatric History: Reports: Aggressive/Hostile Behaviors, Antisocial Behaviors, Anxiety, Bipolar, Depression, Learning Disability, Mood Swings, Psych Hospitalization(s), Suicide Attempt, Suicidal Ideation, Other (See Below) Other Psychiatric History: alcohol syndrome. Endocrine/Metabolic History: Reports: Hypothyroidism Other Endocrine/Metabolic History: Patient states he is borderline diabetic. Hematologic History: Reports: None Dermatologic History: Reports: Psoriasis - Infectious Disease History Infectious Disease History: Reports: Chicken Pox - Past Surgical History HEENT Surgical History: Reports: None Social & Family History - Family History Family Medical History: Noncontributory Cardiac: Reports: Angina, Hypertension, [place] Other Cardiac Family History: Father at 42 due to heart related issues. Aunts and uncles have a history of cardiac issues. Respiratory: Reports: Other (See Below) Other Respiratory Family Hisory: Lung CA. - Caffeine Use Caffeine Use: Reports: Coffee, Energy Drinks, Soda, Tea Other Caffeine Use: 1-2 a day Caffeine Use Comment: Pt refused to answer questions - Living Situation & Occupation Living situation: Reports: Single ED ROS ENT - Review of Systems Review Of Systems: See Below Constitutional: Reports: No Symptoms HEENT: Reports: Throat Pain, Other (swollen tongue) Respiratory: Reports: No Symptoms Cardiovascular: Reports: No Symptoms Endocrine: Reports: No Symptoms GI/Abdominal: Reports: No Symptoms : Reports: No Symptoms Musculoskeletal: Reports: No Symptoms Skin: Reports: No Symptoms ED EXAM, ENT - Physical Exam Exam: See Below Exam Limited By: No Limitations General Appearance: Alert, No Apparent Distress Ears: Normal External Exam, Normal Canal, Hearing Grossly Normal Nose: Normal Inspection, Normal Mucousa, No Blood Mouth/Throat: Normal Inspection, Normal Gums, Normal Lips, Normal Oropharynx, Tongue Swelling Head: Atraumatic, Normocephalic Neck: Normal Inspection, Supple, Non-Tender Respiratory/Chest: No Respiratory Distress, Lungs Clear, Normal Breath Sounds Cardiovascular: Normal Peripheral Pulses, Regular Rate, Rhythm, No Edema, No Gallop GI/Abdominal: Normal Bowel Sounds, Soft, Non-Tender, No Organomegaly Extremities: Normal Inspection, Normal Range of Motion, Non-Tender Course - Vital Signs Text/Narrative:: Solumedrol 125 mg IM Benadryl 50 mg IM x1 His symptoms resolved and is vitally stable upon discharge - Orders/Labs/Meds Meds: Medications Discontinued Medications Generic Name Dose Route Start Last Admin Trade Name Mauroq PRN Reason Stop Dose Admin Diphenhydramine HCl 50 mg 04/06/20 04:57 Benadryl IM 04/06/20 04:58 .STK-MED ONE Methylprednisolone Sodium Succinate 125 mg 04/06/20 04:57 Solu-Medrol IM 04/06/20 04:58 .STK-MED ONE Departure - Departure Time of Disposition: 06:15 Disposition: Home, Self-Care 01 Condition: Good Clinical Impression: Angioedema - Discharge Information Referrals: Abbie Pimentel [employer] [Primary Care Provider] - Additional Instructions: Please read discharge instructions on angioedema Prednisone 40 mg daily for 3 days Benadryl 50 mg po Q4-6 hours PRN
== END 2020-04-06 06:15 | disposition home or self-care (01) ==
LOC: FB.ED 04:56
DX: T78.3XXA Angioneurotic edema, initial encounter (principal); I10 Essential (primary) hypertension; F41.9 Anxiety disorder, unspecified; F31.9 Bipolar disorder, unspecified; Z88.1 Allergy status to other antibiotic agents; Z88.5 Allergy status to narcotic agent; Z79.899 Other long term (current) drug therapy
CPT/HCPCS: 96372; 99282; 99283; J1200; J2930

== ENCOUNTER 2020-06-11 22:15 | Emergency (ER) | payer MEDICARE, MEDICAID ==
--- NOTE | 2020-06-11 22:38 | EDM.PDOCBH ---
ED HPI GENERAL MEDICAL PROBLEM - General Stated Complaint: DEPRESSION Time Seen by Provider: 06/11/20 22:35 Source of Information: Reports: Patient History Limitations: Reports: No Limitations - History of Present Illness INITIAL COMMENTS - FREE TEXT/NARRATIVE: 35-year-old male with history of depression and anxiety who emergency Department reports that he has been under quite a bit of stress for the past 3-4 days. He reports that he recently was affected from his apartment and had to find another apartment. He also reports that he recently lost his job. He reports that for the past 3-4 days he also has been feeling that his "depression is kicking my butt" and he reports that he has been feeling depressed for quite some time and does not feel that his medications are working but over the past 3-4 days he has been feeling more depressed and has been sleeping more, has not really had much of an appetite, has not really felt like getting out of bed and does not feel well. He denies any suicidal or homicidal ideation at present. He is oriented to person, place, time and situation. He denies any pain. He rates his pain as a 0/10 but does report he has mental anguish and it is severe. He has had no nausea or vomiting. No fevers or chills. No cough. No nasal congestion. No sore throat. He has been taking his medications as directed by his physician. There are no other associated signs or symptoms. There are no other modifying factors. Onset: Other (For several weeks to months. Worsening over the past 3-4 days.) Duration: Getting Worse Location: Reports: Other (Not applicable) Quality: Reports: Other (Not applicable) Severity: Moderate (His feelings of mental anguish and depression is moderate to severe.) Improves with: Reports: None Worsens with: Reports: None Context: Reports: Other (As above) Associated Symptoms: Reports: No Other Symptoms Treatments [employer]: Reports: Other (see below) (Nothing.) - Related Data Allergies Allergy/AdvReac Type Severity Reaction Status Date / Time doxycycline Allergy Blisters, Verified 06/11/20 22:23 Photosensitivity hydrocodone bitartrate Allergy Difficulty Verified 06/11/20 22:23 [From Vicodin] Breathing Home Meds: Home Meds hydrOXYzine pamoate [Hydroxyzine Pamoate] 1 cap PO BID PRN 01/16/19 [History] Divalproex Sodium [Depakote ER] 1,000 mg PO DAILY 03/13/19 [History] buPROPion HCL [Wellbutrin Xl] 300 mg PO DAILY 06/20/19 [History] Lurasidone HCl [Latuda] 80 mg PO DAILY 06/11/20 [History] Past Medical History HEENT History: Reports: Impaired Vision, Other (See Below) Other HEENT History: Wears glasses. Cardiovascular History: Reports: Hypertension, Other (See Below) Other Cardiovascular History: Hx of heart irregularities and chest tightness. Gastrointestinal History: Reports: GERD Other Gastrointestinal History: Acid reflux. Neurological History: Reports: Migraines Other Neuro History: States headaches improved after taking magnesium. Psychiatric History: Reports: Aggressive/Hostile Behaviors, Antisocial Behaviors, Anxiety, Bipolar, Depression, Learning Disability, Mood Swings, Psych Hospitalization(s), Suicide Attempt, Suicidal Ideation, Other (See Below) Other Psychiatric History: alcohol syndrome. Endocrine/Metabolic History: Reports: Hypothyroidism Other Endocrine/Metabolic History: Patient states he is borderline diabetic. Dermatologic History: Reports: Psoriasis - Infectious Disease History Infectious Disease History: Reports: Chicken Pox - Past Surgical History Other Surgical History Comment: No previous surgeries. Social & Family History - Family History Cardiac: Reports: Angina, Hypertension, [place] Other Cardiac Family History: Father at 42 due to heart related issues. Aunts and uncles have a history of cardiac issues. Respiratory: Reports: Other (See Below) Other Respiratory Family Hisory: Lung CA. - Tobacco Use Smoking Status *Q: Current Every Day Smoker - Caffeine Use Caffeine Use: Reports: Coffee, Energy Drinks, Soda, Tea Other Caffeine Use: 1-2 a day Caffeine Use Comment: Pt refused to answer questions - Alcohol Use Alcohol Use History: No - Recreational Drug Use Recreational Drug Use: Yes Drug Use in Last 12 Months: Yes Recreational Drug Type: Reports: Marijuana/Hashish - Living Situation & Occupation Living situation: Reports: Single Occupation: Unemployed ED ROS GENERAL - Review of Systems Review Of Systems: See Below Constitutional: Reports: Decreased Appetite HEENT: Reports: No Symptoms Respiratory: Reports: No Symptoms Cardiovascular: Reports: No Symptoms GI/Abdominal: Reports: No Symptoms : Reports: No Symptoms Musculoskeletal: Reports: No Symptoms Skin: Reports: No Symptoms Neurological: Reports: No Symptoms Psychiatric: Reports: Anxiety, Depression. Denies: Homicidal Ideation, Suicidal Ideation Hematologic/Lymphatic: Reports: No Symptoms Immunologic: Reports: No Symptoms ED EXAM, BEHAVIORAL HEALTH - Physical Exam Exam: See Below Exam Limited By: No Limitations General Appearance: Alert, WD/WN, Anxious, Mild Distress (Secondary to his anxiety and depression) Eye Exam: Bilateral Eye: EOMI, Normal Inspection Ears: Normal External Exam, Hearing Grossly Normal Nose: Normal Inspection, Normal Mucosa, No Blood Throat/Mouth: Normal Inspection, Normal Oropharynx, Normal Voice, No Airway Compromise Head: Atraumatic, Normocephalic Neck: Normal Inspection, Supple, Non-Tender, Full Range of Motion Respiratory/Chest: No Respiratory Distress, Lungs Clear, Normal Breath Sounds, No Accessory Muscle Use, Chest Non-Tender Cardiovascular: Normal Peripheral Pulses, Regular Rate, Rhythm, No Murmur GI/Abdominal: Normal Bowel Sounds, Soft, Non-Tender, No Mass Back Exam: Normal Inspection, Full Range of Motion Extremities: Normal Inspection, Normal Range of Motion, Non-Tender, Normal Capillary Refill Neurological: Alert, CN II-XII Intact, Normal Cognition, No Motor/Sensory Deficits, Oriented x 3 Psychiatric: Alert, Normal Cognition, Oriented, Depressed Mood, Other (Anxious appearing). No: Homicidal Thoughts, Suicidal Thoughts, Auditory Hallucinations, Visual Hallucinations Skin Exam: Warm, Dry, Intact, Normal color, No rash COURSE, BEHAVIORAL HEALTH COMP - Course Vital Signs: Last Vital Signs Temp 36.6 C 06/11/20 22:20 Pulse 73 06/11/20 22:20 Resp 18 06/11/20 22:20 BP 140/82 06/11/20 22:20 Pulse Ox 98 06/11/20 22:20 Orders, Labs, Meds: Medications Discontinued Medications Generic Name Dose Route Start Last Admin Trade Name Marco A PRN Reason Stop Dose Admin Hydroxyzine Pamoate 50 mg 06/11/20 22:58 06/11/20 23:03 Vistaril PO 06/11/20 22:59 50 mg ONETIME ONE Administration Discharge vs Psych Eval/Treatment:: 06/11/20 22:50: Patient is awake and alert. He is also oriented to person, place, time and situation. He is denying any suicidal or homicidal ideation. He does appear to be depressed. He does not represent a danger to himself or others at this point. I have strongly advised him to follow up with his primary provider on Saturday of this coming week and potentially she can discuss his case with Dr. Saldaña to either follow-up with Dr. Saldaña or to have medication adjustment. He had specifically asked for medication adjustment in the emergency department and that is not something that is in the purview of the emergency department. He does not want services at this point nor does he meet criteria for inpatient admission. I will give the patient Vistaril 50 mg by mouth now for his anxiety. Precautions and reasons for return to the emergency department were discussed with the patient in the emergency department were detailed in his discharge instructions. Part of his discharge instructions were for him to sign a contract for safety. Departure - Departure Time of Disposition: 22:58 Disposition: Home, Self-Care 01 Condition: Good Clinical Impression: Adjustment disorder with mixed emotional features Depression Qualifiers: Depression Type: unspecified Qualified Code(s): F32.9 - Major depressive disorder, single episode, unspecified - Discharge Information Instructions: Major Depressive Disorder, Adult, [id number], Adjustment Disorder, Adult Referrals: Abbie Pimentel [employer]SULTANT [Primary Care Provider] - Forms: ED Department Discharge Additional Instructions: Continue to take your medications as prescribed. You were given given Vistaril to help with your anxiety tonight. You need to see Abbie Pimentel this week so that she can either adjust her medications or discuss your case with Dr. Saldaña. Increase your fluid intake. Back to the emergency department for feelings of wanting to harm yourself or other people, hallucinations, vomiting or any other concerning sign or symptom. By signing your discharge paperwork, you are affirming that you do not want to h arm or kill yourself or other people. You are also agreeing that you will not harm or kill yourself and that if you begin to feel that you want to harm or kill yourself or other people, you will call the crisis line or you will come back in to the emergency department for reevaluation and you will not harm or kill yourself. Sepsis Event Note (ED) - Focused Exam Vital Signs: Vital Signs Temp Pulse Resp BP Pulse Ox 06/11/20 22:20 36.6 C 73 18 140/82 98
[2020-06-11 23:12] VITALS: BP 140/82; PULSE 73
== END 2020-06-11 23:15 | disposition home or self-care (01) ==
LOC: FB.ED 22:15
DX: F32.9 Major depressive disorder, single episode, unspecified (principal); F43.20 Adjustment disorder, unspecified; F34.89 Other specified persistent mood disorders; F41.9 Anxiety disorder, unspecified; I10 Essential (primary) hypertension; F17.200 Nicotine dependence, unspecified, uncomplicated; Z88.1 Allergy status to other antibiotic agents; Z88.5 Allergy status to narcotic agent; Z79.899 Other long term (current) drug therapy
CPT/HCPCS: 99283; A9270

== ENCOUNTER 2020-11-09 11:47 | Emergency (ER) | payer MEDICARE, MEDICAID ==
--- NOTE | 2020-11-09 12:45 | EDM.PDOC ---
ED HPI GENERAL MEDICAL PROBLEM - General Chief Complaint: Neck Problem Stated Complaint: numbness in neck Time Seen by Provider: 11/09/20 12:00 Source of Information: Reports: Patient History Limitations: Reports: No Limitations - History of Present Illness INITIAL COMMENTS - FREE TEXT/NARRATIVE: Patient presented to the ED because of numbness and tingling on his neck with shock like sensation radiating to his shoulders. He does a lot of lefting and neck turning at work. He has a history of cervial DDD as seen by a CT scan in 01/2019. neck Pain Score (Numeric/FACES): 3 - Related Data Allergies Allergy/AdvReac Type Severity Reaction Status Date / Time doxycycline Allergy Blisters, Verified 06/11/20 22:23 Photosensitivity hydrocodone bitartrate Allergy Difficulty Verified 06/11/20 22:23 [From Vicodin] Breathing Home Meds: Home Meds hydrOXYzine pamoate [Hydroxyzine Pamoate] 1 cap PO BID PRN 01/16/19 [History] Divalproex Sodium [Depakote ER] 1,000 mg PO DAILY 03/13/19 [History] buPROPion HCL [Wellbutrin Xl] 300 mg PO DAILY 06/20/19 [History] Lurasidone [Latuda] 80 mg PO DAILY 06/11/20 [History] Cyclobenzaprine [Flexeril] 10 mg PO Q8H PRN #30 tab 11/09/20 [Rx] Ibuprofen 800 mg PO Q8H PRN #30 tablet 11/09/20 [Rx] Past Medical History HEENT History: Reports: Impaired Vision, Other (See Below) Other HEENT History: Wears glasses. Cardiovascular History: Reports: Hypertension, Other (See Below) Other Cardiovascular History: Hx of heart irregularities and chest tightness. Respiratory History: Reports: Other (See Below) Other Respiratory History: Patient states he has been exposed to "Black Mold". Hx respiratory issues, non specified. Gastrointestinal History: Reports: GERD Other Gastrointestinal History: Acid reflux. Neurological History: Reports: Migraines Other Neuro History: States headaches improved after taking magnesium. Psychiatric History: Reports: Aggressive/Hostile Behaviors, Antisocial Behaviors, Anxiety, Bipolar, Depression, Learning Disability, Mood Swings, Psych Hospitalization(s), Suicide Attempt, Suicidal Ideation, Other (See Below) Other Psychiatric History: alcohol syndrome. Endocrine/Metabolic History: Reports: Hypothyroidism Other Endocrine/Metabolic History: Patient states he is borderline diabetic. Hematologic History: Reports: None Dermatologic History: Reports: Psoriasis - Infectious Disease History Infectious Disease History: Reports: Chicken Pox - Past Surgical History HEENT Surgical History: Reports: None Other Cardiovascular Surgeries/Procedures: Patient states he had cardiac stents placed. Respiratory Surgical History: Reports: None Social & Family History - Family History Family Medical History: No Pertinent Family History Cardiac: Reports: Angina, Hypertension, [place] Other Cardiac Family History: Father at 42 due to heart related issues. Aunts and uncles have a history of cardiac issues. Respiratory: Reports: Other (See Below) Other Respiratory Family Hisory: Lung CA. - Tobacco Use Tobacco Use Status *Q: Current Every Day Tobacco User Years of Tobacco use: 5 Packs/Tins Daily: 1 - Caffeine Use Caffeine Use: Reports: Coffee, Energy Drinks, Soda, Tea Other Caffeine Use: 1-2 a day Caffeine Use Comment: Pt refused to answer questions - Living Situation & Occupation Living situation: Reports: Single Occupation: Unemployed ED ROS GENERAL - Review of Systems Review Of Systems: See Below Constitutional: Reports: No Symptoms HEENT: Reports: No Symptoms Respiratory: Reports: No Symptoms Cardiovascular: Reports: No Symptoms Endocrine: Reports: No Symptoms GI/Abdominal: Reports: No Symptoms : Reports: No Symptoms Musculoskeletal: Reports: Neck Pain, Shoulder Pain Skin: Reports: No Symptoms ED EXAM, GENERAL - Physical Exam Exam: See Below Exam Limited By: No Limitations General Appearance: Alert, No Apparent Distress Eye Exam: Bilateral Eye: PERRL Ears: Normal External Exam, Normal Canal Nose: Normal Inspection, Normal Mucosa, No Blood Throat/Mouth: Normal Inspection Head: Atraumatic, Normocephalic Neck: Normal Inspection, Supple, Non-Tender, Full Range of Motion Respiratory/Chest: No Respiratory Distress, Lungs Clear, Normal Breath Sounds Cardiovascular: Normal Peripheral Pulses, Regular Rate, Rhythm, No Edema, No Gallop GI/Abdominal: Normal Bowel Sounds, Soft, Non-Tender, No Organomegaly Back Exam: Normal Inspection, Full Range of Motion Extremities: Normal Inspection, Normal Range of Motion, Non-Tender Neurological: Alert, Oriented, CN II-XII Intact Course - Vital Signs Last Recorded V/S: Last Vital Signs Temp 36.1 C 11/09/20 12:45 Pulse 78 11/09/20 12:45 Resp 16 11/09/20 12:45 BP 127/79 11/09/20 12:45 Pulse Ox 98 11/09/20 12:45 Departure - Departure Time of Disposition: 12:45 Disposition: Home, Self-Care 01 Condition: Good Clinical Impression: Cervical disc disease, Radiculopathy - Discharge Information Prescriptions: Cyclobenzaprine [Flexeril] 10 mg PO Q8H PRN #30 tab PRN Reason: Spasms Ibuprofen 800 mg PO Q8H PRN #30 tablet PRN Reason: Pain Instructions: Cervical Radiculopathy, [id number] Referrals: Abbie Pimentel BOXING INSPECTOR [Primary Care Provider] - Forms: ED Department Discharge Additional Instructions: Please read discharge instructions on cervical radiculopathy and degenerative disc disease Take ibuprofen 800 mg, tylneol 1000 mg, and flexeril every 8 hours as needed for pain,tingling etc Follow up as needed Sepsis Event Note (ED) - Evaluation Sepsis Screening Result: No Definite Risk - Focused Exam Vital Signs: Vital Signs Temp Pulse Resp BP Pulse Ox 11/09/20 12:45 36.1 C 78 16 127/79 98 11/09/20 11:47 36.1 C 85 17 151/110 H 98
[2020-11-09 12:51] VITALS: BP 127/79; PULSE 78
== END 2020-11-09 12:50 | disposition home or self-care (01) ==
LOC: FB.ED 11:47
DX: M50.10 Cervical disc disorder with radiculopathy, unspecified cervical region (principal); I10 Essential (primary) hypertension; Z88.1 Allergy status to other antibiotic agents; Z88.5 Allergy status to narcotic agent; Z79.899 Other long term (current) drug therapy; Z72.0 Tobacco use
CPT/HCPCS: 99283

== ENCOUNTER 2020-11-26 09:26 | Emergency (ER) | payer MEDICARE, MEDICAID ==
--- NOTE | 2020-11-26 09:40 | EDM.PDOC ---
ED HPI GENERAL MEDICAL PROBLEM - General Stated Complaint: ALLGERIC REACTION IN THROAT Time Seen by Provider: 11/26/20 09:35 Source of Information: Reports: Patient History Limitations: Reports: No Limitations - History of Present Illness INITIAL COMMENTS - FREE TEXT/NARRATIVE: 35-year-old male who reports that he felt well yesterday and then at 8:30 AM he awoke with a feeling of a slight sore throat and swelling in his throat and "a feeling that it was somewhat difficult to swallow" and breathe at the same time" and he feels that these symptoms have worsened with time. He doesn't really have any pain and he tells me that his pain would be a 0/10 but he is concerned about a possible action to food that he ate yesterday. He states that he has had this happen on other occasions and he has wondered if it were related to food that he has eaten. I concerned now because it feels that he is having trouble breathing. No nausea or vomiting. There is been no fevers or chills. He does have some nasal congestion. He has also had a mild cough. There is no weakness or dizziness. He has no rash or itching. He presents to the emergency department via taxicab. There are no other associated signs or symptoms. There are no other modifying factors. Onset: Today (8:30 AM upon awakening) Duration: Getting Worse Location: Reports: Neck (Throat) Quality: Reports: Other (Not applicable.) Severity: Moderate (to severe) Improves with: Reports: Rest Worsens with: Reports: Other (Swallowing) Context: Reports: Other (As above.) Associated Symptoms: Reports: No Other Symptoms Treatments SENIOR AUDIT MANAGER: Reports: NSAIDS (Ibuprofen), Other Medication(s) (Singulair) Throat Pain Score (Numeric/FACES): 3 - Related Data Allergies Allergy/AdvReac Type Severity Reaction Status Date / Time doxycycline Allergy Blisters, Verified 06/11/20 22:23 Photosensitivity hydrocodone bitartrate Allergy Difficulty Verified 06/11/20 22:23 [From Vicodin] Breathing Home Meds: Home Meds hydrOXYzine pamoate [Hydroxyzine Pamoate] 1 cap PO BID PRN 01/16/19 [History] Divalproex Sodium [Depakote ER] 1,000 mg PO DAILY 03/13/19 [History] buPROPion HCL [Wellbutrin Xl] 300 mg PO DAILY 06/20/19 [History] Lurasidone [Latuda] 80 mg PO DAILY 06/11/20 [History] Cyclobenzaprine [Flexeril] 10 mg PO Q8H PRN #30 tab 11/09/20 [Rx] Ibuprofen 800 mg PO Q8H PRN #30 tablet 11/09/20 [Rx] diphenhydrAMINE [Benadryl] 50 mg PO QID #16 cap 11/26/20 [Rx] predniSONE [Prednisone] 60 mg PO QAM 3 Days #9 tablet 11/26/20 [Rx] Past Medical History HEENT History: Reports: Impaired Vision, Other (See Below) Other HEENT History: Wears glasses. Cardiovascular History: Reports: Hypertension, Other (See Below) Other Cardiovascular History: Hx of heart irregularities and chest tightness. Respiratory History: Reports: Other (See Below) Other Respiratory History: Patient states he has been exposed to "Black Mold". Hx respiratory issues, non specified. Gastrointestinal History: Reports: GERD Other Gastrointestinal History: Acid reflux. Neurological History: Reports: Migraines Other Neuro History: States headaches improved after taking magnesium. Psychiatric History: Reports: Aggressive/Hostile Behaviors, Antisocial Behaviors, Anxiety, Bipolar, Depression, Learning Disability, Mood Swings, Psych Hospitalization(s), Suicide Attempt, Suicidal Ideation, Other (See Below) Other Psychiatric History: alcohol syndrome. Endocrine/Metabolic History: Reports: Hypothyroidism, Obesity/BMI 30+ Other Endocrine/Metabolic History: Patient states he is borderline diabetic. Dermatologic History: Reports: Psoriasis - Infectious Disease History Infectious Disease History: Reports: Chicken Pox - Past Surgical History Other Cardiovascular Surgeries/Procedures: Patient states he had cardiac stents placed. GI Surgical History: Reports: Bariatric Procedure (Gastric bypass) Social & Family History - Family History Cardiac: Reports: Angina, Hypertension, [place] Other Cardiac Family History: Father at 42 due to heart related issues. Aunts and uncles have a history of cardiac issues. Respiratory: Reports: Other (See Below) Other Respiratory Family Hisory: Lung CA. - Tobacco Use Tobacco Use Status *Q: Current Every Day Tobacco User - Caffeine Use Caffeine Use: Reports: Coffee, Energy Drinks, Soda, Tea Other Caffeine Use: 1-2 a day Caffeine Use Comment: Pt refused to answer questions - Alcohol Use Alcohol Use History: No - Recreational Drug Use Recreational Drug Use: No - Living Situation & Occupation Living situation: Reports: Single Occupation: Unemployed ED ROS ALLERGIC REACTION - Review of Systems Review Of Systems: See Below Constitutional: Reports: No Symptoms HEENT: Reports: Throat Pain, Throat Swelling, Other (Some feelings of trouble swallowing and trouble breathing.) Respiratory: Reports: Shortness of Breath Cardiovascular: Reports: No Symptoms Endocrine: Reports: No Symptoms GI/Abdominal: Reports: No Symptoms : Reports: No Symptoms Musculoskeletal: Reports: No Symptoms Skin: Reports: No Symptoms Neurological: Reports: No Symptoms Psychiatric: Reports: Anxiety Hematologic/Lymphatic: Reports: No Symptoms Immunologic: Reports: Food Allergy (Questionable) ED EXAM GENERAL NO PERIP PULSE - Physical Exam Exam: See Below Exam Limited By: No Limitations General Appearance: Alert, WD/WN, Anxious, Mild Distress Eye Exam: Bilateral Eye: EOMI, Normal Inspection Ears: Normal External Exam, Hearing Grossly Normal Nose: Normal Inspection, Normal Mucosa, No Blood Throat/Mouth: Normal Lips Head: Atraumatic, Normocephalic Neck: Normal Inspection, Supple, Non-Tender Respiratory/Chest: No Respiratory Distress, Lungs Clear, Normal Breath Sounds, No Accessory Muscle Use, Chest Non-Tender Cardiovascular: Normal Peripheral Pulses, Regular Rate, Rhythm, No Edema GI/Abdominal: Normal Bowel Sounds, Soft, Non-Tender Back Exam: Normal Inspection, Full Range of Motion Extremities: Normal Inspection, Normal Range of Motion, Non-Tender, No Pedal Edema, Normal Capillary Refill Neurological: Alert, Oriented, CN II-XII Intact, Normal Cognition Psychiatric: Anxious Skin Exam: Warm, Dry, Intact, Normal Color, No Rash Course - Vital Signs Last Recorded V/S: Last Vital Signs Temp 36.6 C 11/26/20 09:26 Pulse 80 11/26/20 09:26 Resp 18 11/26/20 09:26 BP 143/63 H 11/26/20 09:26 Pulse Ox 100 11/26/20 09:26 - Orders/Labs/Meds Orders: Active Orders 24 hr Category Date Time Status CORONAVIRUS COVID-19 NIA [[facility]LEC] Stat Lab 11/26/20 09:49 Ordered Isolation [COMM] Routine Oth 11/26/20 09:49 Ordered Labs: Laboratory Tests 11/26/20 Range/Units 10:15 Group A Strep (PCR) Negative (NEGATIVE) Meds: Medications Discontinued Medications Generic Name Dose Route Start Last Admin Trade Name Marco A PRN Reason Stop Dose Admin Diphenhydramine HCl 50 mg 11/26/20 09:49 11/26/20 10:16 Benadryl IM 11/26/20 09:50 50 mg ONETIME ONE Administration Famotidine 20 mg 11/26/20 09:49 11/26/20 10:13 Pepcid PO 11/26/20 09:50 20 mg ONETIME ONE Administration Prednisone 60 mg 11/26/20 09:49 11/26/20 10:13 Prednisone PO 11/26/20 09:50 60 mg ONETIME ONE Administration - Re-Assessments/Exams Free Text/Narrative Re-Assessment/Exam: 11/26/20 11:10: The influenza screen, strep screen and COVID 19 were all negative. The patient states that he feels improved. He no longer has the feeling of throat swelling or difficulty breathing. He has remained hemodynamically stable. He is in no distress. I think that this could be an allergic reaction and I will send prescriptions for Benadryl and prednisone to his pharmacy. He should increase his fluid intake. Precautions and reasons for return to the emergency Department were discussed with the patient while he was in the emergency department and were detailed in the patient's discharge instructions. Departure - Departure Time of Disposition: 11:15 Disposition: Home, Self-Care 01 Condition: Good (Improved) Clinical Impression: Allergic reaction Qualifiers: Encounter type: initial encounter Qualified Code(s): T78.40XA - Allergy, unspecified, initial encounter - Discharge Information Prescriptions: diphenhydrAMINE [Benadryl] 50 mg PO QID #16 cap predniSONE [Prednisone] 60 mg PO QAM 3 Days #9 tablet Instructions: Allergies, Adult, [id number] Additional Instructions: Your influenza screen, strep screen and COVID 19 were all negative. It is possible that this is an allergic reaction and I am sending prescriptions to your pharmacies to treat this. You should take Benadryl, 50 mg, by mouth 4 times a day for the next 2 days and then as needed for allergic reaction. I am also sending a prescription for prednisone that you should take for the next 3 days with the first dose tomorrow. Increase your fluid intake. Rest. Follow-up with your primary doctor. Back to the emergency department for worse breathing, unrelenting vomiting, high fever or any other concerning sign or symptom. Sepsis Event Note (ED) - Focused Exam Vital Signs: Vital Signs Temp Pulse Resp BP Pulse Ox 11/26/20 09:26 36.6 C 80 18 143/63 H 100 - My Orders Last 24 Hours: My Active Orders 11/26/20 09:49 CORONAVIRUS COVID-19 NIA [MOLEC] Stat Isolation [COMM] Routine - Assessment/Plan Last 24 Hours: My Active Orders 11/26/20 09:49 CORONAVIRUS COVID-19 NIA [MOLEC] Stat Isolation [COMM] Routine
[2020-11-26] MEDS ORDERED: predniSONE 20 MG Tab PO ONE (09:49)
[2020-11-26] MEDS ORDERED: diphenhydrAMINE 50 MG/ML SDV IM ONE (09:49)
[2020-11-26] MEDS ORDERED: Famotidine 20 MG Tab PO ONE (09:49)
[2020-11-26 11:47] VITALS: BP 133/71; PULSE 77
== END 2020-11-26 11:25 | disposition home or self-care (01) ==
LOC: FB.ED 09:26
DX: T78.40XA Allergy, unspecified, initial encounter (principal); E66.9 Obesity, unspecified; I10 Essential (primary) hypertension; Z20.822 Contact with and (suspected) exposure to COVID-19; Z79.899 Other long term (current) drug therapy; Z68.38 Body mass index [BMI] 38.0-38.9, adult
CPT/HCPCS: 87651; 87804; 96372; 99283; A9270; J1200; J7512; U0002

== ENCOUNTER 2021-05-18 00:04 | Emergency (ER) | payer MEDICARE, MEDICAID ==
[2021-05-18 01:39] VITALS: BP 145/89; PULSE 86
--- NOTE | 2021-05-18 06:43 | EDM.PDOCBH ---
ED HPI GENERAL MEDICAL PROBLEM - General Chief Complaint: Behavioral/Psych Stated Complaint: DEPRESSION Time Seen by Provider: 05/18/21 00:20 Source of Information: Reports: Patient History Limitations: Reports: No Limitations - History of Present Illness INITIAL COMMENTS - FREE TEXT/NARRATIVE: Johny complains of increased depression over the last few days. He feels sad,and irritable,tired. He denies any suicidal ideation or thoughts. He does have an extensive psychiatric history,including h/o BIPOLAR disorder,for which he takes Depakote and Latuda. He is accompanied by his fiancee. - Related Data Allergies Allergy/AdvReac Type Severity Reaction Status Date / Time doxycycline Allergy Blisters, Verified 06/11/20 22:23 Photosensitivity hydrocodone bitartrate Allergy Difficulty Verified 06/11/20 22:23 [From Vicodin] Breathing Home Meds: Home Meds hydrOXYzine pamoate [Hydroxyzine Pamoate] 1 cap PO BID PRN 01/16/19 [History] Divalproex Sodium [Depakote ER] 1,000 mg PO DAILY 03/13/19 [History] Lurasidone [Latuda] 80 mg PO DAILY 06/11/20 [History] Cyclobenzaprine [Flexeril] 10 mg PO Q8H PRN #30 tab 11/09/20 [Rx] Ibuprofen 800 mg PO Q8H PRN #30 tablet 11/09/20 [Rx] diphenhydrAMINE [Benadryl] 50 mg PO QID #16 cap 11/26/20 [Rx] Omeprazole 40 mg PO DAILY 05/18/21 [History] Past Medical History HEENT History: Reports: Impaired Vision, Other (See Below) Other HEENT History: Wears glasses. Cardiovascular History: Reports: Hypertension, Other (See Below) Other Cardiovascular History: Hx of heart irregularities and chest tightness. Respiratory History: Reports: Other (See Below) Other Respiratory History: Patient states he has been exposed to "Black Mold". Hx respiratory issues, non specified. Gastrointestinal History: Reports: GERD Other Gastrointestinal History: Acid reflux. Neurological History: Reports: Migraines Other Neuro History: States headaches improved after taking magnesium. Psychiatric History: Reports: Aggressive/Hostile Behaviors, Antisocial Behaviors, Anxiety, Bipolar, Depression, Learning Disability, Mood Swings, Psych Hospitalization(s), Suicide Attempt, Suicidal Ideation, Other (See Below) Other Psychiatric History: alcohol syndrome. Endocrine/Metabolic History: Reports: Hypothyroidism, Obesity/BMI 30+ Other Endocrine/Metabolic History: Patient states he is borderline diabetic. Hematologic History: Reports: None Dermatologic History: Reports: Psoriasis - Infectious Disease History Infectious Disease History: Reports: Chicken Pox - Past Surgical History HEENT Surgical History: Reports: None Other Cardiovascular Surgeries/Procedures: Patient states he had cardiac stents placed. Respiratory Surgical History: Reports: None GI Surgical History: Reports: Bariatric Procedure Social & Family History - Family History Family Medical History: No Pertinent Family History Cardiac: Reports: Angina, Hypertension, [place] Other Cardiac Family History: Father at 42 due to heart related issues. Aunts and uncles have a history of cardiac issues. Respiratory: Reports: Other (See Below) Other Respiratory Family Hisory: Lung CA. - Tobacco Use Tobacco Use Status *Q: Current Every Day Tobacco User Years of Tobacco use: 16 Packs/Tins Daily: 1.5 - Caffeine Use Caffeine Use: Reports: Soda Other Caffeine Use: 1-2 a day Caffeine Use Comment: Pt refused to answer questions - Living Situation & Occupation Living situation: Reports: Single Occupation: Unemployed ED ROS GENERAL - Review of Systems Review Of Systems: Comprehensive ROS is negative, except as noted in HPI. ED EXAM, BEHAVIORAL HEALTH - Physical Exam Exam: See Below Exam Limited By: No Limitations General Appearance: Alert, WD/WN, Anxious Neck: Normal Inspection Respiratory/Chest: No Respiratory Distress, Lungs Clear Neurological: Alert, CN II-XII Intact, Normal Cognition, Oriented x 3 Psychiatric: Alert, Depressed Mood, Restless, Pressured Speech Skin Exam: Warm COURSE, BEHAVIORAL HEALTH COMP - Course Vital Signs: Last Vital Signs Temp 96.8 F L 05/18/21 00:06 Pulse 86 05/18/21 01:30 Resp 18 05/18/21 01:30 BP 145/89 H 05/18/21 01:30 Pulse Ox 98 05/18/21 01:30 Orders, Labs, Meds: Laboratory Tests 05/18/21 05/18/21 05/18/21 Range/Units 00:22 00:22 00:36 WBC 8.1 (3.2-10.1) x10-3/uL RBC 5.78 (3.90-5.90) x10(6)uL Hgb 17.7 (12.9-17.7) g/dL Hct 51.5 H (38.3-50.1) % MCV 89.2 (80.8-98.7) fL MCH 30.6 (27.0-33.3) pg MCHC 34.3 (28.7-35.3) g/dL RDW 13.9 (12.4-15.0) % Plt Count 259 (117-477) x10(3)uL MPV 8.0 (6.7-11.0) fL Neut % (Auto) 53.7 (40.3-71.8) % Lymph % (Auto) 33.0 (15.8-45.3) % [place] % (Auto) 7.4 (5.5-15.2) % Eos % (Auto) 4.7 (0.1-6.8) % Baso % (Auto) 1.2 (0.3-3.8) % Neut # (Auto) 4.4 (1.7-6.9) x10-3/uL Lymph # (Auto) 2.7 (0.5-4.5) x10-3/uL [place] # (Auto) 0.6 (0.0-1.2) x10-3/uL Eos # (Auto) 0.4 (0.0-0.6) x10-3/uL Baso # (Auto) 0.1 (0.0-0.3) x10-3/uL Sodium (135-145) mmol/L Potassium (3.5-5.3) mmol/L Chloride (100-110) mmol/L Carbon Dioxide (21-32) mmol/L BUN (7-18) mg/dL Creatinine (0.70-1.30) mg/dL Est Cr Clr Drug Dosing mL/min Estimated GFR (MDRD) (>60) BUN/Creatinine Ratio (9-20) Glucose (80-116) mg/dL Calcium (8.6-10.2) mg/dL Total Bilirubin (0.1-1.3) mg/dL AST (5-25) IU/L ALT (12-36) U/L Alkaline Phosphatase (56-112) IU/L Total Protein (6.0-8.0) g/dL Albumin (3.5-5.2) g/dL Globulin g/dL Albumin/Globulin Ratio TSH, Ultra Sensitive (0.36-3.74) IU/mL Urine Color Yellow (YELLOW) Urine Appearance Slightly cloudy (CLEAR) Urine pH 6.0 (5.0-6.5) Ur Specific [place] 1.020 (1.010-1.025) Urine Protein Negative (NEGATIVE) mg/dL Urine Glucose (UA) 50 H (NORMAL) mg/dL Urine Ketones 15 H (NEGATIVE) mg/dL Urine Occult Blood Large H (NEGATIVE) Urine Nitrite Negative (NEGATIVE) Urine Bilirubin Negative (NEGATIVE) Urine Urobilinogen Normal (NEGATIVE) mg/dL Ur Leukocyte Esterase Small H (NEGATIVE) Urine RBC 10-20 H (0-5) Urine WBC 0-5 (0-5) Ur Squamous Epith Cells Few H (NS,R,O) Amorphous Sediment Few Urine Bacteria Few H (NS) Urine Mucus Few H (NS) Urine Opiates Screen Negative (NEGATIVE) Ur Oxycodone Screen Negative (NEGATIVE) Ur Propoxyphene Screen Negative (NEGATIVE) Ur Barbituates Screen Negative (NEGATIVE) Ur Tricyclics Screen Negative (NEGATIVE) Ur Phencyclidine Scrn Negative (NEGATIVE) Ur Amphetamine Screen Negative (NEGATIVE) Urine MDMA Screen Negative (NEGATIVE) U Benzodiazepines Scrn Negative (NEGATIVE) U Cocaine Metab Screen Negative (NEGATIVE) U Marijuana (THC) Screen Negative (NEGATIVE) Ethyl Alcohol (<0.03) % SARS-CoV-2 RNA (NIA) (NEGATIVE) 05/18/21 05/18/21 05/18/21 Range/Units 00:36 00:36 00:46 WBC (3.2-10.1) x10-3/uL RBC (3.90-5.90) x10(6)uL Hgb (12.9-17.7) g/dL Hct (38.3-50.1) % MCV (80.8-98.7) fL MCH (27.0-33.3) pg MCHC (28.7-35.3) g/dL RDW (12.4-15.0) % Plt Count (117-477) x10(3)uL MPV (6.7-11.0) fL Neut % (Auto) (40.3-71.8) % Lymph % (Auto) (15.8-45.3) % [place] % (Auto) (5.5-15.2) % Eos % (Auto) (0.1-6.8) % Baso % (Auto) (0.3-3.8) % Neut # (Auto) (1.7-6.9) x10-3/uL Lymph # (Auto) (0.5-4.5) x10-3/uL [place] # (Auto) (0.0-1.2) x10-3/uL Eos # (Auto) (0.0-0.6) x10-3/uL Baso # (Auto) (0.0-0.3) x10-3/uL Sodium 143 (135-145) mmol/L Potassium 4.1 (3.5-5.3) mmol/L Chloride 103 (100-110) mmol/L Carbon Dioxide 28 (21-32) mmol/L BUN 15 (7-18) mg/dL Creatinine 1.1 (0.70-1.30) mg/dL Est Cr Clr Drug Dosing 104.92 mL/min Estimated GFR (MDRD) > 60 (>60) BUN/Creatinine Ratio 13.6 (9-20) Glucose 198 H (80-116) mg/dL Calcium 9.1 (8.6-10.2) mg/dL Total Bilirubin 0.2 (0.1-1.3) mg/dL AST 20 D (5-25) IU/L ALT 61 H D (12-36) U/L Alkaline Phosphatase 81 (56-112) IU/L Total Protein 7.3 (6.0-8.0) g/dL Albumin 4.0 (3.5-5.2) g/dL Globulin 3.3 g/dL Albumin/Globulin Ratio 1.2 TSH, Ultra Sensitive 3.15 (0.36-3.74) IU/mL Urine Color (YELLOW) Urine Appearance (CLEAR) Urine pH (5.0-6.5) Ur Specific [place] (1.010-1.025) Urine Protein (NEGATIVE) mg/dL Urine Glucose (UA) (NORMAL) mg/dL Urine Ketones (NEGATIVE) mg/dL Urine Occult Blood (NEGATIVE) Urine Nitrite (NEGATIVE) Urine Bilirubin (NEGATIVE) Urine Urobilinogen (NEGATIVE) mg/dL Ur Leukocyte Esterase (NEGATIVE) Urine RBC (0-5) Urine WBC (0-5) Ur Squamous Epith Cells (NS,R,O) Amorphous Sediment Urine Bacteria (NS) Urine Mucus (NS) Urine Opiates Screen (NEGATIVE) Ur Oxycodone Screen (NEGATIVE) Ur Propoxyphene Screen (NEGATIVE) Ur Barbituates Screen (NEGATIVE) Ur Tricyclics Screen (NEGATIVE) Ur Phencyclidine Scrn (NEGATIVE) Ur Amphetamine Screen (NEGATIVE) Urine MDMA Screen (NEGATIVE) U Benzodiazepines Scrn (NEGATIVE) U Cocaine Metab Screen (NEGATIVE) U Marijuana (THC) Screen (NEGATIVE) Ethyl Alcohol < 0.03 (<0.03) % SARS-CoV-2 RNA (NIA) Negative (NEGATIVE) Departure - Departure Time of Disposition: 01:30 Disposition: Home, Self-Care 01 Clinical Impression: Depressive disorder - Discharge Information Instructions: Living With Depression, Major Depressive Disorder, Adult, [id number], Depression Screening Referrals: PCP,None [Primary Care Provider] - Forms: ED Department Discharge Additional Instructions: Follow up with your psychologist in the morning of 05/18/21. Keep taking your medications as prescribed. Sepsis Event Note (ED) - Evaluation Sepsis Screening Result: No Definite Risk - Problem List & Annotations (1) MDD (major depressive disorder) SNOMED Code(s): 634058888 Code(s): F32.9 - MAJOR DEPRESSIVE DISORDER, SINGLE EPISODE, UNSPECIFIED Status: Acute Qualifiers: Major depression recurrence: recurrent Active/Remission status: currently active (2) Bipolar disorder SNOMED Code(s): 31530884 Code(s): F31.9 - BIPOLAR DISORDER, UNSPECIFIED Status: Acute Priority: Medium Onset Date: 08/26/14 - Problem List Review Problem List Initiated/Reviewed/Updated: Yes - Assessment/Plan Plan: We had screening by Michaelle. Did some labs. It is agreed that he does not need criteria for in patient care. I discharged him home,to see his mental health provider in the coming days.
== END 2021-05-18 01:35 | disposition home or self-care (01) ==
LOC: FB.ED 00:04
DX: F32.9 Major depressive disorder, single episode, unspecified (principal); I10 Essential (primary) hypertension; K21.9 Gastro-esophageal reflux disease without esophagitis; E66.9 Obesity, unspecified; Z68.39 Body mass index [BMI] 39.0-39.9, adult; Z72.0 Tobacco use; Z88.1 Allergy status to other antibiotic agents; Z88.5 Allergy status to narcotic agent; Z79.899 Other long term (current) drug therapy; Z20.822 Contact with and (suspected) exposure to COVID-19
CPT/HCPCS: 36415; 80053; 80305-QW; 80307; 81001; 84443; 85025; 99284; U0002

== ENCOUNTER 2021-06-12 20:09 | Emergency (ER) | payer MEDICARE, MEDICAID ==
[2021-06-12 20:25] VITALS: BP 136/73; PULSE 91
--- NOTE | 2021-06-12 20:36 | EDM.PDOC ---
ED HPI GENERAL MEDICAL PROBLEM - General Chief Complaint: Respiratory Problem Stated Complaint: sob Time Seen by Provider: 06/12/21 20:20 Source of Information: Reports: Patient, Family History Limitations: Reports: No Limitations - History of Present Illness INITIAL COMMENTS - FREE TEXT/NARRATIVE: Patient presented to the ED because of increasing cough, dyspnea which started . He was then diagnosed with bronchitis and was put on z-shay and 1 dose of oral steroid. There is no fever, chills or chest pain. - Related Data Allergies Allergy/AdvReac Type Severity Reaction Status Date / Time doxycycline Allergy Blisters, Verified 06/11/20 22:23 Photosensitivity hydrocodone bitartrate Allergy Difficulty Verified 06/11/20 22:23 [From Vicodin] Breathing Home Meds: Home Meds hydrOXYzine pamoate [Hydroxyzine Pamoate] 1 cap PO BID PRN 01/16/19 [History] Divalproex Sodium [Depakote ER] 1,000 mg PO DAILY 03/13/19 [History] Lurasidone [Latuda] 80 mg PO DAILY 06/11/20 [History] Cyclobenzaprine [Flexeril] 10 mg PO Q8H PRN #30 tab 11/09/20 [Rx] Ibuprofen 800 mg PO Q8H PRN #30 tablet 11/09/20 [Rx] diphenhydrAMINE [Benadryl] 50 mg PO QID #16 cap 11/26/20 [Rx] Omeprazole 40 mg PO DAILY 05/18/21 [History] predniSONE [Prednisone] 40 mg PO DAILY #10 tablet 06/12/21 [Rx] Past Medical History HEENT History: Reports: Impaired Vision, Other (See Below) Other HEENT History: Wears glasses. Cardiovascular History: Reports: Hypertension, Other (See Below) Other Cardiovascular History: Hx of heart irregularities and chest tightness. Respiratory History: Reports: Other (See Below) Other Respiratory History: Patient states he has been exposed to "Black Mold". Hx respiratory issues, non specified. Gastrointestinal History: Reports: GERD Other Gastrointestinal History: Acid reflux. Neurological History: Reports: Migraines Other Neuro History: States headaches improved after taking magnesium. Psychiatric History: Reports: Aggressive/Hostile Behaviors, Antisocial Behaviors, Anxiety, Bipolar, Depression, Learning Disability, Mood Swings, Psych Hospitalization(s), Suicide Attempt, Suicidal Ideation, Other (See Below) Other Psychiatric History: alcohol syndrome. Endocrine/Metabolic History: Reports: Hypothyroidism, Obesity/BMI 30+ Other Endocrine/Metabolic History: Patient states he is borderline diabetic. Hematologic History: Reports: None Dermatologic History: Reports: Psoriasis - Infectious Disease History Infectious Disease History: Reports: Chicken Pox - Past Surgical History HEENT Surgical History: Reports: None Other Cardiovascular Surgeries/Procedures: Patient states he had cardiac stents placed. Respiratory Surgical History: Reports: None GI Surgical History: Reports: Bariatric Procedure Social & Family History - Family History Family Medical History: No Pertinent Family History Cardiac: Reports: Angina, Hypertension, [place] Other Cardiac Family History: Father at 42 due to heart related issues. Aunts and uncles have a history of cardiac issues. Respiratory: Reports: Other (See Below) Other Respiratory Family Hisory: Lung CA. - Tobacco Use Tobacco Use Status *Q: Current Every Day Tobacco User Years of Tobacco use: 7 Packs/Tins Daily: 1.5 - Caffeine Use Caffeine Use: Reports: Coffee, Energy Drinks, Soda Other Caffeine Use: 1-2 a day Caffeine Use Comment: Pt refused to answer questions - Recreational Drug Use Recreational Drug Use: No - Living Situation & Occupation Living situation: Reports: Single Occupation: Unemployed ED ROS GENERAL - Review of Systems Review Of Systems: See Below Constitutional: Reports: No Symptoms HEENT: Reports: No Symptoms Respiratory: Reports: Shortness of Breath, Cough Cardiovascular: Reports: No Symptoms Endocrine: Reports: No Symptoms GI/Abdominal: Reports: No Symptoms : Reports: No Symptoms Musculoskeletal: Reports: No Symptoms Skin: Reports: No Symptoms Neurological: Reports: No Symptoms Psychiatric: Reports: No Symptoms ED EXAM, GENERAL - Physical Exam Exam: See Below Exam Limited By: No Limitations General Appearance: Alert, No Apparent Distress Ears: Normal External Exam, Normal Canal Nose: Normal Inspection, Normal Mucosa, No Blood Throat/Mouth: Normal Inspection, Normal Lips, Normal Teeth Head: Atraumatic, Normocephalic Neck: Normal Inspection, Supple, Non-Tender, Full Range of Motion Respiratory/Chest: No Respiratory Distress, Lungs Clear, Rhonchi Cardiovascular: Normal Peripheral Pulses, Regular Rate, Rhythm, No Edema GI/Abdominal: Normal Bowel Sounds, Soft, Non-Tender Back Exam: Normal Inspection, Full Range of Motion Extremities: Normal Inspection, Normal Range of Motion, Non-Tender Neurological: Alert, Oriented, CN II-XII Intact Course - Vital Signs Last Recorded V/S: Last Vital Signs Temp 36.0 C L 06/12/21 20:12 Pulse 91 06/12/21 20:12 Resp 18 06/12/21 20:12 BP 136/73 06/12/21 20:12 Pulse Ox 96 06/12/21 20:12 Departure - Departure Time of Disposition: 20:40 Disposition: Home, Self-Care 01 Condition: Good Clinical Impression: URI (upper respiratory infection), Asthma exacerbation - Discharge Information Prescriptions: predniSONE [Prednisone] 40 mg PO DAILY #10 tablet Instructions: Viral Respiratory Infection, [id number], Asthma, Adult, [id number] Referrals: PCP,None [Primary Care Provider] - Forms: ED Department Discharge Additional Instructions: Please read discharge instructions on URI-vial, Asthma attack Quit smoking while you are being treated Prednisone 20 mg, 2 tablets every morning for 5 days Follow up as needed Sepsis Event Note (ED) - Evaluation Sepsis Screening Result: No Definite Risk
== END 2021-06-12 20:42 | disposition home or self-care (01) ==
LOC: FB.ED 20:09
DX: J45.901 Unspecified asthma with (acute) exacerbation (principal); J06.9 Acute upper respiratory infection, unspecified; I10 Essential (primary) hypertension; K21.9 Gastro-esophageal reflux disease without esophagitis; E66.9 Obesity, unspecified; Z72.0 Tobacco use; Z88.1 Allergy status to other antibiotic agents; Z88.5 Allergy status to narcotic agent; Z79.899 Other long term (current) drug therapy
CPT/HCPCS: 99283

== ENCOUNTER 2021-07-19 20:11 | Emergency (ER) | payer MEDICARE, MEDICAID ==
[2021-07-19] MEDS ORDERED: predniSONE 20 MG Tab PO ONE (20:12)
[2021-07-19 21:37] VITALS: BP 170/74; PULSE 86
--- NOTE | 2021-07-20 00:53 | ER ---
DATE SEEN: 07/19/2021 REASON FOR VISIT: Difficulty breathing. HISTORY OF PRESENT ILLNESS: A 36-year-old male with a cough, difficulty breathing over the last few days. He has 2 animals at home and also works with wood and dust. His symptoms have progressively gotten worse over the last 2 days. He has no fever or chills, but he has a productive cough of yellow sputum. He has tried a nebulizer at home with minimal improvement. REVIEW OF SYSTEMS: All other systems noncontributory. SOCIAL HISTORY: He is a smoker. PHYSICAL EXAMINATION: VITAL SIGNS: He is afebrile. His pulse is 97. He has oxygenation of 96% on room air. Blood pressure was initially elevated. ENT: Normal. CHEST: Clear breath sounds. CARDIOVASCULAR: Normal. IMPRESSION: 1. Acute bronchitis. 2. Tobacco abuse. TREATMENT: Prednisone 10 mg b.i.d. I advised him to see Abbie Pimentel to discuss treatment for tobacco abuse. /[id number] ALLISON/CHEN
== END 2021-07-19 20:40 | disposition home or self-care (01) ==
LOC: FB.ED 20:11
DX: J20.9 Acute bronchitis, unspecified (principal); F17.200 Nicotine dependence, unspecified, uncomplicated
CPT/HCPCS: 99284; J7512

== ENCOUNTER 2021-08-19 17:22 | Emergency (ER) | payer MEDICARE, MEDICAID ==
--- NOTE | 2021-08-19 19:36 | EDM.PDOC ---
ED HPI GENERAL MEDICAL PROBLEM - General Chief Complaint: Respiratory Problem Stated Complaint: COUGH, SOB Time Seen by Provider: 08/19/21 18:30 Source of Information: Reports: Patient History Limitations: Reports: No Limitations - History of Present Illness INITIAL COMMENTS - FREE TEXT/NARRATIVE: pt c/o productive cough , chest congestion X 2 days, had diarrhea but this slowing, c/o gen weakness and worried about covid, pt denies fever or chills or any other associated sx or concerns, he is a smoker. - Related Data Allergies Allergy/AdvReac Type Severity Reaction Status Date / Time doxycycline Allergy Blisters, Verified 08/19/21 17:41 Photosensitivity hydrocodone bitartrate Allergy Difficulty Verified 08/19/21 17:41 [From Vicodin] Breathing Home Meds: Home Meds hydrOXYzine pamoate [Hydroxyzine Pamoate] 1 cap PO BID PRN 01/16/19 [History] Divalproex Sodium [Depakote ER] 1,000 mg PO DAILY 03/13/19 [History] Lurasidone [Latuda] 80 mg PO DAILY 06/11/20 [History] Cyclobenzaprine [Flexeril] 10 mg PO Q8H PRN #30 tab 11/09/20 [Rx] Ibuprofen 800 mg PO Q8H PRN #30 tablet 11/09/20 [Rx] diphenhydrAMINE [Benadryl] 50 mg PO QID #16 cap 11/26/20 [Rx] Omeprazole 40 mg PO DAILY 05/18/21 [History] predniSONE [Prednisone] 40 mg PO DAILY #10 tablet 06/12/21 [Rx] Past Medical History HEENT History: Reports: Impaired Vision, Other (See Below) Other HEENT History: Wears glasses. Cardiovascular History: Reports: Hypertension, Other (See Below) Other Cardiovascular History: Hx of heart irregularities and chest tightness. Respiratory History: Reports: Other (See Below) Other Respiratory History: Patient states he has been exposed to "Black Mold". Hx respiratory issues, non specified. Gastrointestinal History: Reports: GERD Other Gastrointestinal History: Acid reflux. Neurological History: Reports: Migraines Other Neuro History: States headaches improved after taking magnesium. Psychiatric History: Reports: Aggressive/Hostile Behaviors, Antisocial Behaviors, Anxiety, Bipolar, Depression, Learning Disability, Mood Swings, Psych Hospitalization(s), Suicide Attempt, Suicidal Ideation, Other (See Below) Other Psychiatric History: alcohol syndrome. Endocrine/Metabolic History: Reports: Hypothyroidism, Obesity/BMI 30+ Other Endocrine/Metabolic History: Patient states he is borderline diabetic. Hematologic History: Reports: None Dermatologic History: Reports: Psoriasis - Infectious Disease History Infectious Disease History: Reports: Chicken Pox - Past Surgical History HEENT Surgical History: Reports: None Other Cardiovascular Surgeries/Procedures: Patient states he had cardiac stents placed. Respiratory Surgical History: Reports: None GI Surgical History: Reports: Bariatric Procedure Social & Family History - Family History Family Medical History: No Pertinent Family History Cardiac: Reports: Angina, Hypertension, [place] Other Cardiac Family History: Father at 42 due to heart related issues. Aunts and uncles have a history of cardiac issues. Respiratory: Reports: Other (See Below) Other Respiratory Family Hisory: Lung CA. - Tobacco Use Years of Tobacco use: 20 Packs/Tins Daily: 0.5 - Caffeine Use Caffeine Use: Reports: Soda Other Caffeine Use: 1-2 a day Caffeine Use Comment: Pt refused to answer questions - Recreational Drug Use Recreational Drug Use: No - Living Situation & Occupation Living situation: Reports: Single Occupation: Unemployed ED ROS GENERAL - Review of Systems Review Of Systems: See Below Constitutional: Reports: Weakness, Fatigue. Denies: Fever, Chills HEENT: Denies: Ear Discharge, Ear Pain Respiratory: Reports: Shortness of Breath, Cough Cardiovascular: Reports: No Symptoms GI/Abdominal: Reports: Diarrhea : Reports: No Symptoms Musculoskeletal: Reports: Joint Pain Skin: Reports: No Symptoms ED EXAM, GENERAL - Physical Exam Exam: See Below Exam Limited By: No Limitations General Appearance: Alert, No Apparent Distress, Other (coars cough ) Eye Exam: Bilateral Eye: Normal Inspection Ears: Normal External Exam, Normal TMs Nose: Normal Inspection Throat/Mouth: Normal Inspection, Normal Oropharynx Head: Atraumatic Neck: Normal Inspection, Supple Respiratory/Chest: No Respiratory Distress, Lungs Clear, Normal Breath Sounds Cardiovascular: Normal Peripheral Pulses, Regular Rate, Rhythm, No JVD, No Murmur GI/Abdominal: Normal Bowel Sounds, Soft Course - Vital Signs Text/Narrative:: unremarkable labs were explained to pt, pt has acute bronchitis, was given Augmentin and Robitussin AC, was asked to quit smoking and maintain good hydration, f/u prn. Last Recorded V/S: Last Vital Signs Temp 35.8 C L 08/19/21 17:30 Pulse 87 08/19/21 17:30 Resp 18 08/19/21 17:30 BP 131/96 H 08/19/21 17:30 Pulse Ox 96 08/19/21 17:30 - Orders/Labs/Meds Labs: Laboratory Tests 08/19/21 08/19/21 08/19/21 Range/Units 17:54 17:55 17:55 WBC 8.5 (3.2-10.1) x10-3/uL RBC 5.46 (3.90-5.90) x10(6)uL Hgb 16.5 (12.9-17.7) g/dL Hct 48.7 (38.3-50.1) % MCV 89.3 (80.8-98.7) fL MCH 30.3 (27.0-33.3) pg MCHC 33.9 (28.7-35.3) g/dL RDW 13.9 (12.4-15.0) % Plt Count 275 (117-477) x10(3)uL MPV 8.4 (6.7-11.0) fL Neut % (Auto) 50.8 (40.3-71.8) % Lymph % (Auto) 37.1 (15.8-45.3) % [place] % (Auto) 6.3 (5.5-15.2) % Eos % (Auto) 4.5 (0.1-6.8) % Baso % (Auto) 1.3 (0.3-3.8) % Neut # (Auto) 4.3 (1.7-6.9) x10-3/uL Lymph # (Auto) 3.2 (0.5-4.5) x10-3/uL Winn # (Auto) 0.5 (0.0-1.2) x10-3/uL Eos # (Auto) 0.4 (0.0-0.6) x10-3/uL Baso # (Auto) 0.1 (0.0-0.3) x10-3/uL Sodium 139 (135-145) mmol/L Potassium 3.6 (3.5-5.3) mmol/L Chloride 103 (100-110) mmol/L Carbon Dioxide 24 (21-32) mmol/L BUN 19 H (7-18) mg/dL Creatinine 0.8 (0.70-1.30) mg/dL Est Cr Clr Drug Dosing TNP Estimated GFR (MDRD) > 60 (>60) BUN/Creatinine Ratio 23.8 H (9-20) Glucose 153 H (80-116) mg/dL Calcium 9.2 (8.6-10.2) mg/dL Total Bilirubin 0.4 (0.1-1.3) mg/dL AST 19 (5-25) IU/L ALT 55 H (12-36) U/L Alkaline Phosphatase 72 (56-112) IU/L Total Protein 7.0 (6.0-8.0) g/dL Albumin 4.0 (3.5-5.2) g/dL Globulin 3.0 g/dL Albumin/Globulin Ratio 1.3 SARS-CoV-2 RNA (NIA) Negative (NEGATIVE) Departure - Departure Time of Disposition: 19:38 Disposition: Home, Self-Care 01 Clinical Impression: Acute bronchitis - Discharge Information Referrals: Abbie Pimentel [facility] [Primary Care Provider] - Sepsis Event Note (ED) - Focused Exam Vital Signs: Vital Signs Temp Pulse Resp BP Pulse Ox 08/19/21 17:30 35.8 C L 87 18 131/96 H 96
[2021-08-19 20:01] VITALS: BP 128/89; PULSE 77
== END 2021-08-19 19:50 | disposition home or self-care (01) ==
LOC: FB.ED 17:22
DX: J20.9 Acute bronchitis, unspecified (principal); I10 Essential (primary) hypertension; K21.9 Gastro-esophageal reflux disease without esophagitis; E66.9 Obesity, unspecified; Z72.0 Tobacco use; Z88.1 Allergy status to other antibiotic agents; Z88.5 Allergy status to narcotic agent; Z79.899 Other long term (current) drug therapy; Z20.822 Contact with and (suspected) exposure to COVID-19
CPT/HCPCS: 36415; 80053; 85025; 99284; U0002

== ENCOUNTER 2021-10-13 18:37 | Emergency (ER) | payer MEDICARE, MEDICAID ==
--- NOTE | 2021-10-13 19:36 | EDM.PDOC ---
ED HPI GENERAL MEDICAL PROBLEM - General Stated Complaint: R EYE BLURRYNESS Time Seen by Provider: 10/13/21 19:32 Source of Information: Reports: Patient History Limitations: Reports: No Limitations - History of Present Illness INITIAL COMMENTS - FREE TEXT/NARRATIVE: Jamarcus had a minor injury to the right eye. In addition,he is been sleeping with his contacts lenses in the last 3 weeks.Would like it checked,and also measure his vital sings nd weight. He has lost over 50 lbs. - Related Data Allergies Allergy/AdvReac Type Severity Reaction Status Date / Time doxycycline Allergy Blisters, Verified 10/13/21 19:43 Photosensitivity hydrocodone bitartrate Allergy Difficulty Verified 10/13/21 19:43 [From Vicodin] Breathing Home Meds: Home Meds Ibuprofen 800 mg PO Q8H PRN #30 tablet 11/09/20 [Rx] Omeprazole 40 mg PO DAILY 05/18/21 [History] Past Medical History HEENT History: Reports: Impaired Vision, Other (See Below) Other HEENT History: Wears glasses. Cardiovascular History: Reports: Hypertension, Other (See Below) Other Cardiovascular History: Hx of heart irregularities and chest tightness. Respiratory History: Reports: Other (See Below) Other Respiratory History: Patient states he has been exposed to "Black Mold". Hx respiratory issues, non specified. Gastrointestinal History: Reports: GERD Other Gastrointestinal History: Acid reflux. Neurological History: Reports: Migraines Other Neuro History: States headaches improved after taking magnesium. Psychiatric History: Reports: Aggressive/Hostile Behaviors, Antisocial Behaviors, Anxiety, Bipolar, Depression, Learning Disability, Mood Swings, Psych Hospitalization(s), Suicide Attempt, Suicidal Ideation, Other (See Below) Other Psychiatric History: alcohol syndrome. Endocrine/Metabolic History: Reports: Hypothyroidism, Obesity/BMI 30+ Other Endocrine/Metabolic History: Patient states he is borderline diabetic. Hematologic History: Reports: None Dermatologic History: Reports: Psoriasis - Infectious Disease History Infectious Disease History: Reports: Chicken Pox - Past Surgical History HEENT Surgical History: Reports: None Other Cardiovascular Surgeries/Procedures: Patient states he had cardiac stents placed. Respiratory Surgical History: Reports: None GI Surgical History: Reports: Bariatric Procedure Social & Family History - Family History Family Medical History: No Pertinent Family History Cardiac: Reports: Angina, Hypertension, [place] Other Cardiac Family History: Father at 42 due to heart related issues. Aunts and uncles have a history of cardiac issues. Respiratory: Reports: Other (See Below) Other Respiratory Family Hisory: Lung CA. - Caffeine Use Caffeine Use: Reports: Soda Other Caffeine Use: 1-2 a day Caffeine Use Comment: Pt refused to answer questions - Living Situation & Occupation Living situation: Reports: Single Occupation: Unemployed ED ROS GENERAL - Review of Systems Review Of Systems: Comprehensive ROS is negative, except as noted in HPI. ED EXAM GENERAL W FULL EYE - Physical Exam Exam: See Below Exam Limited By: No Limitations General Appearance: Alert, WD/WN, No Apparent Distress Eye Exam: Right Eye: Conjunctival Injection With Correction: Yes Eyelids: Bilateral: Normal Appearance Conjunctiva & Sclera: Right: Injected, Left: Normal Appearance Cornea Exam: Bilateral: Normal Appearance Extraocular Movements: Bilateral: Intact Pupils: Normal Accommodation Pupillary Size: Bilateral: 4 mm Pupillary Reaction: Bilateral: Brisk Anterior Chamber: Bilateral: Normal Appearance Ears: Normal External Exam, Normal TMs Throat/Mouth: Normal Inspection Course - Vital Signs Last Recorded V/S: Last Vital Signs Temp 98.0 F 10/13/21 19:38 Pulse 67 10/13/21 19:38 Resp 18 10/13/21 19:38 BP 163/105 H 10/13/21 19:38 Pulse Ox 97 10/13/21 19:38 Departure - Departure Time of Disposition: 20:26 Disposition: Home, Self-Care 01 Condition: Good Clinical Impression: Conjunctivitis - Discharge Information Referrals: Abbie Pimentel, [facility] [Primary Care Provider] - Sepsis Event Note (ED) - Focused Exam Vital Signs: Vital Signs Temp Pulse Resp BP Pulse Ox 10/13/21 19:38 98.0 F 67 18 163/105 H 97 - Problem List & Annotations (1) Eye pain SNOMED Code(s): 33565372 Code(s): H57.10 - OCULAR PAIN, UNSPECIFIED EYE Status: Acute Current Visit: Yes Qualifiers: Laterality: right Qualified Code(s): H57.11 - Ocular pain, right eye - Problem List Review Problem List Initiated/Reviewed/Updated: Yes - Assessment/Plan Plan: Reassurance. See PCP
[2021-10-13 20:35] VITALS: BP 157/85; PULSE 64
== END 2021-10-13 20:20 | disposition home or self-care (01) ==
LOC: FB.ED 18:37
DX: H10.9 Unspecified conjunctivitis (principal); I10 Essential (primary) hypertension; K21.9 Gastro-esophageal reflux disease without esophagitis; E03.9 Hypothyroidism, unspecified; E66.9 Obesity, unspecified; Z68.35 Body mass index [BMI] 35.0-35.9, adult; Z88.1 Allergy status to other antibiotic agents; Z88.5 Allergy status to narcotic agent; Z79.899 Other long term (current) drug therapy
CPT/HCPCS: 99283

== ENCOUNTER 2021-11-08 22:20 | Emergency (ER) | payer MEDICARE, MEDICAID ==
[2021-11-08] MEDS ORDERED: Codeine/guaiFENesin 100mg-10 MG/5 ML Soln 118 ML Bottle PO ONE (22:21)
[2021-11-08] MEDS ORDERED: predniSONE 20 MG Tab PO ONE (22:21)
[2021-11-08 23:49] VITALS: BP 157/101; PULSE 88
== END 2021-11-08 23:25 | disposition home or self-care (01) ==
LOC: FB.ED 22:20
DX: J20.9 Acute bronchitis, unspecified (principal)
CPT/HCPCS: 99283; A9270; J7512

== ENCOUNTER 2021-11-17 13:12 | Emergency (ER) | payer MEDICARE, MEDICAID ==
[2021-11-17] MEDS ORDERED: Ondansetron 4 MG Tab.DIS PO ONE (13:43)
[2021-11-17 16:00] VITALS: BP 154/89; PULSE 83
== END 2021-11-17 15:10 | disposition home or self-care (01) ==
LOC: FB.ED 13:12
DX: J45.40 Moderate persistent asthma, uncomplicated (principal); R11.2 Nausea with vomiting, unspecified; R19.7 Diarrhea, unspecified; I10 Essential (primary) hypertension; E03.9 Hypothyroidism, unspecified; E66.9 Obesity, unspecified; Z68.34 Body mass index [BMI] 34.0-34.9, adult; Z87.891 Personal history of nicotine dependence; Z88.1 Allergy status to other antibiotic agents; Z88.5 Allergy status to narcotic agent; Z79.899 Other long term (current) drug therapy; Z20.822 Contact with and (suspected) exposure to COVID-19
CPT/HCPCS: 36415; 80053; 83735; 85025; 99284; Q0162; U0002

== ENCOUNTER 2021-12-20 16:49 | Emergency (ER) | payer MEDICARE, MEDICAID ==
[2021-12-20 19:00] VITALS: BP 152/93; PULSE 82
== END 2021-12-20 18:20 | disposition home or self-care (01) ==
LOC: FB.ED 16:49
DX: S09.90XA Unspecified injury of head, initial encounter (principal); K21.9 Gastro-esophageal reflux disease without esophagitis; I10 Essential (primary) hypertension; E03.9 Hypothyroidism, unspecified; E66.9 Obesity, unspecified; Z68.30 Body mass index [BMI] 30.0-30.9, adult; Z88.1 Allergy status to other antibiotic agents; Z88.5 Allergy status to narcotic agent; Z79.899 Other long term (current) drug therapy; W01.198A Fall on same level from slipping, tripping and stumbling with subsequent striking against other object, initial encounter
CPT/HCPCS: 70450; 99282; 99283-25

== ENCOUNTER 2022-03-27 20:39 | Emergency (ER) | payer MEDICARE, MEDICAID ==
[2022-03-27] MEDS ORDERED: Albuterol/Ipratropium 3.0-0.5 MG/3 ML Neb Soln NEB ONE (21:15)
[2022-03-27 21:38] VITALS: BP 151/87
[2022-03-27] MEDS ORDERED: predniSONE 20 MG Tab PO ONE (22:00)
[2022-03-27] MEDS ORDERED: Azithromycin 500 MG Tab PO STA (22:00)
[2022-03-29 03:06] VITALS: PULSE 85
== END 2022-03-27 22:17 | disposition home or self-care (01) ==
LOC: FB.ED 20:39
DX: J20.9 Acute bronchitis, unspecified (principal); I10 Essential (primary) hypertension; E03.9 Hypothyroidism, unspecified; E66.9 Obesity, unspecified; Z68.33 Body mass index [BMI] 33.0-33.9, adult; Z88.1 Allergy status to other antibiotic agents; Z88.5 Allergy status to narcotic agent
CPT/HCPCS: 71045; 94640; 99282; 99285-25; A9270-GY; J7512; J7620

== ENCOUNTER 2022-06-14 22:00 | Emergency (ER) | payer MEDICARE, MEDICAID ==
[2022-06-14 22:50] LABS: ESTIMATED GFR 99 mL/min (>60)
[2022-06-14 23:27] VITALS: BP 133/81; PULSE 70
== END 2022-06-14 23:15 | disposition home or self-care (01) ==
LOC: FB.ED 22:00
DX: R07.9 Chest pain, unspecified (principal); F41.1 Generalized anxiety disorder; I10 Essential (primary) hypertension; K21.9 Gastro-esophageal reflux disease without esophagitis; E03.9 Hypothyroidism, unspecified; E66.9 Obesity, unspecified; Z68.33 Body mass index [BMI] 33.0-33.9, adult; Z88.1 Allergy status to other antibiotic agents; Z88.5 Allergy status to narcotic agent
CPT/HCPCS: 36415; 80048; 84484; 85025; 93005; 99281; 99284

== ENCOUNTER 2022-06-23 10:41 | Emergency (ER) | payer MEDICARE, MEDICAID ==
[2022-06-23] MEDS ORDERED: Ketorolac 30 MG/ML SDV IM ONE (11:00)
[2022-06-23 16:52] VITALS: BP 138/67; PULSE 90
== END 2022-06-23 11:54 | disposition home or self-care (01) ==
LOC: FB.ED 10:41
DX: M54.50 Low back pain, unspecified (principal); I10 Essential (primary) hypertension; K21.9 Gastro-esophageal reflux disease without esophagitis; E03.9 Hypothyroidism, unspecified; E66.9 Obesity, unspecified; Z68.33 Body mass index [BMI] 33.0-33.9, adult
CPT/HCPCS: 96372; 99283; J1885

== ENCOUNTER 2022-07-02 22:29 | Emergency (ER) | payer MEDICARE, MEDICAID ==
[2022-07-02] MEDS ORDERED: Ketorolac 30 MG/ML SDV IM ONE (23:06)
[2022-07-03 00:30] VITALS: BP 139/82; PULSE 65
== END 2022-07-03 00:40 | disposition home or self-care (01) ==
LOC: FB.ED 22:29
DX: M54.50 Low back pain, unspecified (principal); I10 Essential (primary) hypertension; E03.9 Hypothyroidism, unspecified; E66.9 Obesity, unspecified; Z68.33 Body mass index [BMI] 33.0-33.9, adult; Z88.1 Allergy status to other antibiotic agents; Z88.5 Allergy status to narcotic agent; Z72.0 Tobacco use
CPT/HCPCS: 72100; 96372; 99283; J1885

== ENCOUNTER 2022-10-12 20:51 | Emergency (ER) | payer MEDICARE, MEDICAID ==
[2022-10-12] MEDS ORDERED: Azithromycin 250 MG Tab PO ONE (20:52)
[2022-10-12] MEDS ORDERED: cefTRIAXone 1 GM Vial IM ONE (21:18)
[2022-10-12 21:39] VITALS: BP 119/76; PULSE 79
== END 2022-10-12 21:33 | disposition home or self-care (01) ==
LOC: FB.ED 20:51
DX: J21.9 Acute bronchiolitis, unspecified (principal); I10 Essential (primary) hypertension; E03.9 Hypothyroidism, unspecified; E66.9 Obesity, unspecified; Z68.33 Body mass index [BMI] 33.0-33.9, adult
CPT/HCPCS: 96372; 99283; A9270-GY

== ENCOUNTER 2023-01-24 21:28 | Emergency (ER) | payer MEDICAID, MEDICARE ==
[2023-01-24] MEDS ORDERED: Cephalexin 500 MG Cap PO STA (22:31)
[2023-01-24 23:03] VITALS: BP 138/81; PULSE 83
== END 2023-01-24 22:43 | disposition home or self-care (01) ==
LOC: FB.ED 21:28
DX: R59.0 Localized enlarged lymph nodes (principal); I10 Essential (primary) hypertension; E66.9 Obesity, unspecified; Z88.1 Allergy status to other antibiotic agents; Z88.5 Allergy status to narcotic agent; Z79.899 Other long term (current) drug therapy
CPT/HCPCS: 99283; A9270-GY

== ENCOUNTER 2023-02-10 03:26 | Emergency (ER) | payer MEDICARE, MEDICAID ==
[2023-02-10] MEDS ORDERED: predniSONE 20 MG Tab PO ONE (03:27)
[2023-02-10] MEDS ORDERED: Ketorolac 30 MG/ML SDV IM ONE (03:41)
[2023-02-10] MEDS ORDERED: Ketorolac 30 MG/ML SDV ONE (03:44)
[2023-02-10 04:15] VITALS: BP 136/94; PULSE 81
== END 2023-02-10 04:05 | disposition home or self-care (01) ==
LOC: FB.ED 03:26
DX: M54.30 Sciatica, unspecified side (principal); I10 Essential (primary) hypertension; E66.9 Obesity, unspecified; Z88.5 Allergy status to narcotic agent; Z88.1 Allergy status to other antibiotic agents; Z79.899 Other long term (current) drug therapy
CPT/HCPCS: 96372; 99283; J1885; J7512

== ENCOUNTER 2023-03-01 20:53 | Emergency (ER) | payer MEDICARE, MEDICAID ==
[2023-03-01] MEDS ORDERED: Ondansetron 4 MG Tab.DIS PO ONE (20:54)
[2023-03-01] MEDS ORDERED: Ondansetron 4 MG Tab.DIS PO STA (21:20)
[2023-03-01 21:37] LABS: BASOPHILS ABSOLUTE AUTO 0.1 x10-3/uL (0.0-0.3); BASOPHILS PERCENT AUTO 0.9 % (0.3-3.8); EOSINOPHILS ABSOLUTE AUTO 0.3 x10-3/uL (0.0-0.6); EOSINOPHILS PERCENT AUTO 2.4 % (0.1-6.8); HEMATOCRIT 50.7 % (38.3-50.1); HEMOGLOBIN 17.5 g/dL (12.9-17.7); LYMPHOCYTES ABSOLUTE AUTO 3.3 x10-3/uL (0.5-4.5); LYMPHOCYTES PERCENT AUTO 29.9 % (15.8-45.3); MEAN CORPUSCULAR HEMOGLOBIN 30.7 pg (27.0-33.3); MEAN CORPUSCULAR HGB CONC 34.5 g/dL (28.7-35.3); MEAN CORPUSCULAR VOLUME 89.2 fL (80.8-98.7); MEAN PLATELET VOLUME 8.6 fL (6.7-11.0); MONOCYTES ABSOLUTE AUTO 0.7 x10-3/uL (0.0-1.2); MONOCYTES PERCENT AUTO 6.1 % (5.5-15.2); NEUTROPHILS ABSOLUTE AUTO 6.7 x10-3/uL (1.7-6.9); NEUTROPHILS PERCENT AUTO 60.7 % (40.3-71.8); PLATELET COUNT,PLT 264 x10(3)uL (117-477); RED BLOOD CELL COUNT 5.69 x10(6)uL (3.90-5.90); RED CELL DISTRIBUTION WIDTH 13.6 % (12.4-15.0); WHITE BLOOD CELL COUNT,WBC 11.1 x10-3/uL (3.2-10.1)
[2023-03-01 21:39] LABS: BLOOD UREA NITROGEN,BUN 21 mg/dL (7-18); CALCIUM 9.5 mg/dL (8.6-10.2); CARBON DIOXIDE,CO2 31 mmol/L (21-32); CHLORIDE,CL 100 mmol/L (100-110); ESTIMATED GFR 99 mL/min (>60); GLUCOSE RANDOM 183 mg/dL (80-116); POTASSIUM,K 3.7 mmol/L (3.5-5.3); SODIUM,NA 139 mmol/L (135-145)
[2023-03-01 21:45] LABS: A/G RATIO 1.2; ALANINE AMINOTRANSFERASE,ALT 60 U/L (12-36); ALBUMIN 3.9 g/dL (3.5-5.2); ALKALINE PHOSPHATASE 78 IU/L (56-112); ASPARTATE AMNIOTRANSFERASE,AST 25 IU/L (5-25); BILIRUBIN TOTAL 0.4 mg/dL (0.1-1.3); PROTEIN TOTAL,TP 7.1 g/dL (6.0-8.0)
[2023-03-01 23:39] VITALS: BP 140/78; PULSE 88
== END 2023-03-01 22:49 | disposition home or self-care (01) ==
LOC: FB.ED 20:53
DX: K52.9 Noninfective gastroenteritis and colitis, unspecified (principal); E86.0 Dehydration; I10 Essential (primary) hypertension; E66.9 Obesity, unspecified; Z68.36 Body mass index [BMI] 36.0-36.9, adult; Z88.1 Allergy status to other antibiotic agents; Z88.5 Allergy status to narcotic agent; Z79.899 Other long term (current) drug therapy; Z20.822 Contact with and (suspected) exposure to COVID-19
CPT/HCPCS: 36415; 80053; 82947; 85025; 99284; Q0162; U0002

== ENCOUNTER 2023-03-16 00:55 | Emergency (ER) | payer MEDICARE, MEDICAID ==
[2023-03-16 01:15] VITALS: BP 137/96; PULSE 82
[2023-03-16] MEDS: Ketorolac 30 MG/ML SDV IM ONE (01:19)
== END 2023-03-16 01:37 | disposition home or self-care (01) ==
LOC: FB.ED 00:55
DX: M54.50 Low back pain, unspecified (principal); I10 Essential (primary) hypertension; E66.9 Obesity, unspecified; Z68.35 Body mass index [BMI] 35.0-35.9, adult; Z88.1 Allergy status to other antibiotic agents; Z88.5 Allergy status to narcotic agent; X50.0XXA Overexertion from strenuous movement or load, initial encounter
CPT/HCPCS: 96372; 99283; J1885

== ENCOUNTER 2023-03-22 13:13 | Emergency (ER) | payer MEDICARE, MEDICAID ==
[2023-03-22] MEDS ORDERED: cloNIDine 0.1 MG Tab PO ONE (14:09)
[2023-03-22] MEDS ORDERED: Benztropine 1 MG Tab PO STA (14:11)
[2023-03-22] MEDS ORDERED: Benztropine 0.5 MG Tab PO STA (14:18)
[2023-03-22 14:27] VITALS: BP 143/82
[2023-03-22 14:33] LABS: BASOPHILS ABSOLUTE AUTO 0.1 x10-3/uL (0.0-0.3); BASOPHILS PERCENT AUTO 1.2 % (0.3-3.8); EOSINOPHILS ABSOLUTE AUTO 0.3 x10-3/uL (0.0-0.6); EOSINOPHILS PERCENT AUTO 3.4 % (0.1-6.8); HEMATOCRIT 50.6 % (38.3-50.1); HEMOGLOBIN 17.2 g/dL (12.9-17.7); LYMPHOCYTES ABSOLUTE AUTO 2.3 x10-3/uL (0.5-4.5); LYMPHOCYTES PERCENT AUTO 28.2 % (15.8-45.3); MEAN CORPUSCULAR HEMOGLOBIN 30.7 pg (27.0-33.3); MEAN CORPUSCULAR HGB CONC 34.1 g/dL (28.7-35.3); MEAN CORPUSCULAR VOLUME 90.1 fL (80.8-98.7); MEAN PLATELET VOLUME 8.2 fL (6.7-11.0); MONOCYTES ABSOLUTE AUTO 0.4 x10-3/uL (0.0-1.2); MONOCYTES PERCENT AUTO 5.3 % (5.5-15.2); NEUTROPHILS PERCENT AUTO 61.9 % (40.3-71.8); PLATELET COUNT,PLT 240 x10(3)uL (117-477); RED BLOOD CELL COUNT 5.61 x10(6)uL (3.90-5.90); WHITE BLOOD CELL COUNT,WBC 8.1 x10-3/uL (3.2-10.1)
[2023-03-22 14:38] LABS: BLOOD UREA NITROGEN,BUN 15 mg/dL (7-18); BUN/CREATININE RATIO 16.7 (9-20); CALCIUM 9.6 mg/dL (8.6-10.2); CARBON DIOXIDE,CO2 27 mmol/L (21-32); CHLORIDE,CL 102 mmol/L (100-110); CREATININE 0.9 mg/dL (0.70-1.30); EST CRCL DRUG DOSING (CG) 119.69 mL/min; ESTIMATED GFR 113 mL/min (>60); GLUCOSE RANDOM 177 mg/dL (80-116); POTASSIUM,K 3.9 mmol/L (3.5-5.3); SODIUM,NA 138 mmol/L (135-145)
[2023-03-22 14:40] VITALS: PULSE 74
[2023-03-22 14:44] LABS: A/G RATIO 1.3; ALANINE AMINOTRANSFERASE,ALT 45 U/L (12-36); ALKALINE PHOSPHATASE 84 IU/L (56-112); ASPARTATE AMNIOTRANSFERASE,AST 21 IU/L (5-25); BILIRUBIN TOTAL 0.4 mg/dL (0.1-1.3)
[2023-03-22 14:54] LABS: AMPHETAMINES SCREEN, URINE NEGATIVE (NEGATIVE); BARBITURATE SCREEN,URINE NEGATIVE (NEGATIVE); BENZODIAZEPINES SCREEN,URINE NEGATIVE (NEGATIVE); METHADONE SCREEN, URINE NEGATIVE (NEGATIVE); METHAMPHETAMINE SCREEN, URINE NEGATIVE (NEGATIVE); OXYCODONE SCREEN,URINE NEGATIVE (NEGATIVE); PROPOXYPHENE SCREEN,URINE NEGATIVE (NEGATIVE); THC SCREEN,URINE NEGATIVE (NEGATIVE)
[2023-03-22 14:55] LABS: BUPRENORPHINE SCREEN,URINE NEGATIVE (NEGATIVE)
[2023-03-22 14:55] LABS: TSH ULTRASENSITIVE 1.19 IU/mL (0.36-3.74)
[2023-03-22] MEDS ORDERED: Nicotine 21 MG/24 Hr Patch TRDERM SCH (15:00)
[2023-03-22 15:01] LABS: ETHANOL BLOOD MEDICAL < 0.03 % (<0.03)
== END 2023-03-22 15:17 | disposition left against medical advice (07) ==
LOC: FB.ED 13:13
DX: F31.9 Bipolar disorder, unspecified (principal); F41.9 Anxiety disorder, unspecified; I10 Essential (primary) hypertension; K21.9 Gastro-esophageal reflux disease without esophagitis; E03.9 Hypothyroidism, unspecified; E66.9 Obesity, unspecified; Z68.35 Body mass index [BMI] 35.0-35.9, adult; Z88.1 Allergy status to other antibiotic agents; Z88.5 Allergy status to narcotic agent; Z79.899 Other long term (current) drug therapy
CPT/HCPCS: 36415; 80053; 80307; 84439; 84443; 85025; 99283; A9270-GY

== ENCOUNTER 2023-03-25 06:29 | Emergency (ER) | payer MEDICARE, MEDICAID ==
[2023-03-25] MEDS ORDERED: diphenhydrAMINE 50 MG Cap PO STA (07:52)
[2023-03-25] MEDS ORDERED: predniSONE 20 MG Tab PO STA (07:52)
[2023-03-25 08:48] VITALS: BP 109/76; PULSE 74
== END 2023-03-25 08:15 | disposition home or self-care (01) ==
LOC: FB.ED 06:29
DX: J30.81 Allergic rhinitis due to animal (cat) (dog) hair and dander (principal); I10 Essential (primary) hypertension; K21.9 Gastro-esophageal reflux disease without esophagitis; Z91.09 Other allergy status, other than to drugs and biological substances; Z88.1 Allergy status to other antibiotic agents; Z88.5 Allergy status to narcotic agent; Z86.16 Personal history of COVID-19; Z72.0 Tobacco use
CPT/HCPCS: 99283; A9270; J7512

== ENCOUNTER 2023-03-30 23:48 | Emergency (ER) | payer MEDICARE, MEDICAID ==
[2023-03-31] MEDS ORDERED: Triamcinolone Acetonide 0.1% Crm 15 GM Tube ONE (00:06)
[2023-03-31] MEDS ORDERED: hydrOXYzine HCl 50 MG/ML SDV IM ONE (00:07)
[2023-03-31] MEDS ORDERED: methylPREDNISolone Sodium Succinate 125 MG/2 ML SDV IM ONE (00:07)
[2023-03-31 00:43] VITALS: BP 166/88; PULSE 79
== END 2023-03-31 00:35 | disposition home or self-care (01) ==
LOC: FB.ED 23:48
DX: L30.9 Dermatitis, unspecified (principal); L50.5 Cholinergic urticaria; I10 Essential (primary) hypertension; K21.9 Gastro-esophageal reflux disease without esophagitis; E03.9 Hypothyroidism, unspecified; E66.9 Obesity, unspecified; J45.909 Unspecified asthma, uncomplicated; Z91.09 Other allergy status, other than to drugs and biological substances; Z88.1 Allergy status to other antibiotic agents; Z88.5 Allergy status to narcotic agent; Z79.84 Long term (current) use of oral hypoglycemic drugs; Z79.899 Other long term (current) drug therapy; Z86.16 Personal history of COVID-19; Z68.31 Body mass index [BMI] 31.0-31.9, adult
CPT/HCPCS: 96372; 99282; A9270; J2930; J3410

== ENCOUNTER 2023-04-29 12:57 | Emergency (ER) | payer MEDICARE, MEDICAID ==
[2023-04-29 13:38] LABS: BASOPHILS ABSOLUTE AUTO 0.1 x10-3/uL (0.0-0.3); BASOPHILS PERCENT AUTO 0.9 % (0.3-3.8); EOSINOPHILS ABSOLUTE AUTO 0.2 x10-3/uL (0.0-0.6); EOSINOPHILS PERCENT AUTO 3.2 % (0.1-6.8); HEMATOCRIT 47.3 % (38.3-50.1); HEMOGLOBIN 16.4 g/dL (12.9-17.7); LYMPHOCYTES ABSOLUTE AUTO 2.4 x10-3/uL (0.5-4.5); LYMPHOCYTES PERCENT AUTO 35.4 % (15.8-45.3); MEAN CORPUSCULAR HEMOGLOBIN 30.8 pg (27.0-33.3); MEAN CORPUSCULAR HGB CONC 34.6 g/dL (28.7-35.3); MEAN CORPUSCULAR VOLUME 89.2 fL (80.8-98.7); MONOCYTES ABSOLUTE AUTO 0.4 x10-3/uL (0.0-1.2); MONOCYTES PERCENT AUTO 6.6 % (5.5-15.2); NEUTROPHILS ABSOLUTE AUTO 3.7 x10-3/uL (1.7-6.9); NEUTROPHILS PERCENT AUTO 53.9 % (40.3-71.8); PLATELET COUNT,PLT 255 x10(3)uL (117-477); RED CELL DISTRIBUTION WIDTH 13.8 % (12.4-15.0); WHITE BLOOD CELL COUNT,WBC 6.8 x10-3/uL (3.2-10.1)
[2023-04-29 13:43] LABS: BLOOD UREA NITROGEN,BUN 19 mg/dL (7-18); BUN/CREATININE RATIO 17.3 (9-20); CARBON DIOXIDE,CO2 27 mmol/L (21-32); CHLORIDE,CL 102 mmol/L (100-110); CREATININE 1.1 mg/dL (0.70-1.30); EST CRCL DRUG DOSING (CG) 97.93 mL/min; ESTIMATED GFR 89 mL/min (>60); GLUCOSE RANDOM 185 mg/dL (80-116); POTASSIUM,K 3.4 mmol/L (3.5-5.3); SODIUM,NA 140 mmol/L (135-145)
[2023-04-29 13:56] LABS: A/G RATIO 1.2; ALANINE AMINOTRANSFERASE,ALT 44 U/L (12-36); ALBUMIN 3.8 g/dL (3.5-5.2); ALKALINE PHOSPHATASE 83 IU/L (56-112); ASPARTATE AMNIOTRANSFERASE,AST 24 IU/L (5-25); BILIRUBIN TOTAL 0.5 mg/dL (0.1-1.3); PROTEIN TOTAL,TP 7.1 g/dL (6.0-8.0)
[2023-04-29 14:35] LABS: INR 0.96 (1.00-1.24); PROTHROMBIN TIME 9.9 sec (9.0-11.1); PTT,PARTIAL THROMBOPLSTIN TIME 27.4 SECONDS (24.4-33.2)
[2023-04-29 14:57] VITALS: BP 125/82; PULSE 66
[2023-04-29] MEDS ORDERED: Potassium Chloride 20 MEQ Tab.ER PO ONE (15:09)
== END 2023-04-29 15:32 | disposition home or self-care (01) ==
LOC: FB.ED 12:57
DX: F43.9 Reaction to severe stress, unspecified (principal); R20.0 Anesthesia of skin; I10 Essential (primary) hypertension; J45.909 Unspecified asthma, uncomplicated; K21.9 Gastro-esophageal reflux disease without esophagitis; E03.9 Hypothyroidism, unspecified; E66.9 Obesity, unspecified; F17.210 Nicotine dependence, cigarettes, uncomplicated; Z68.35 Body mass index [BMI] 35.0-35.9, adult; Z86.16 Personal history of COVID-19; Z91.048 Other nonmedicinal substance allergy status; Z88.5 Allergy status to narcotic agent; Z88.1 Allergy status to other antibiotic agents; Z79.84 Long term (current) use of oral hypoglycemic drugs; Z79.899 Other long term (current) drug therapy
CPT/HCPCS: 36415; 70450; 71045; 80053; 84484; 85025; 85610; 85730; 93005; 99284; A9270

== ENCOUNTER 2023-07-07 20:23 | Emergency (ER) | payer MEDICARE, MEDICAID ==
[2023-07-07 20:55] VITALS: BP 140/89; PULSE 20
[2023-07-07] MEDS ORDERED: Dexamethasone 4 MG/ML 5 ML MDV PO ONE (21:01)
[2023-07-07] MEDS ORDERED: Azithromycin 500 MG Tab PO ONE (21:02)
== END 2023-07-07 21:15 | disposition home or self-care (01) ==
LOC: FB.ED 20:23
DX: J40 Bronchitis, not specified as acute or chronic (principal); J98.01 Acute bronchospasm; M70.62 Trochanteric bursitis, left hip; I10 Essential (primary) hypertension; F17.210 Nicotine dependence, cigarettes, uncomplicated; E66.9 Obesity, unspecified; Z68.30 Body mass index [BMI] 30.0-30.9, adult; Z86.16 Personal history of COVID-19; Z88.5 Allergy status to narcotic agent; Z88.1 Allergy status to other antibiotic agents; Z91.048 Other nonmedicinal substance allergy status; Z79.84 Long term (current) use of oral hypoglycemic drugs; Z79.899 Other long term (current) drug therapy
CPT/HCPCS: 99284; A9270; J8540

== ENCOUNTER 2023-08-22 19:18 | Emergency (ER) | payer MEDICARE, MEDICAID ==
[2023-08-22] MEDS ORDERED: hydrOXYzine HCl 50 MG/ML SDV IM ONE (20:04)
[2023-08-22] MEDS ORDERED: Ketorolac 30 MG/ML SDV IM ONE (20:04)
[2023-08-22 21:08] VITALS: BP 116/70; PULSE 65
== END 2023-08-22 20:34 | disposition home or self-care (01) ==
LOC: FB.ED 19:18
DX: M54.12 Radiculopathy, cervical region (principal); F17.210 Nicotine dependence, cigarettes, uncomplicated; Z91.048 Other nonmedicinal substance allergy status; Z88.5 Allergy status to narcotic agent; Z79.899 Other long term (current) drug therapy; Z79.84 Long term (current) use of oral hypoglycemic drugs; Z86.16 Personal history of COVID-19
CPT/HCPCS: 96372; 99283; J1885; J3410

== ENCOUNTER 2023-09-05 23:21 | Emergency (ER) | payer MEDICARE, MEDICAID ==
[2023-09-05] MEDS ORDERED: Amoxicillin/Clavulanate K 875-125 MG Tab PO ONE (23:46)
[2023-09-06 00:37] VITALS: BP 121/87; PULSE 70
== END 2023-09-06 00:37 | disposition home or self-care (01) ==
LOC: FB.ED 23:21
DX: J01.90 Acute sinusitis, unspecified (principal); I10 Essential (primary) hypertension; K21.9 Gastro-esophageal reflux disease without esophagitis; E66.9 Obesity, unspecified; Z68.34 Body mass index [BMI] 34.0-34.9, adult; Z91.048 Other nonmedicinal substance allergy status; Z88.8 Allergy status to other drugs, medicaments and biological substances; Z79.84 Long term (current) use of oral hypoglycemic drugs; Z79.899 Other long term (current) drug therapy; Z86.16 Personal history of COVID-19
CPT/HCPCS: 99283; A9270-GY

== ENCOUNTER 2023-12-19 21:11 | Emergency (ER) | payer MEDICARE, MEDICAID ==
[2023-12-19] MEDS ORDERED: Amoxicillin/Clavulanate K 875-125 MG Tab PO ONE (21:12)
[2023-12-19 21:49] VITALS: BP 119/78; PULSE 67
== END 2023-12-19 21:50 | disposition home or self-care (01) ==
LOC: FB.ED 21:11
DX: J20.9 Acute bronchitis, unspecified (principal); I10 Essential (primary) hypertension; K21.9 Gastro-esophageal reflux disease without esophagitis; J45.909 Unspecified asthma, uncomplicated; E03.9 Hypothyroidism, unspecified; E66.9 Obesity, unspecified; Z86.16 Personal history of COVID-19; Z79.899 Other long term (current) drug therapy; Z79.84 Long term (current) use of oral hypoglycemic drugs; Z91.048 Other nonmedicinal substance allergy status; Z88.6 Allergy status to analgesic agent
CPT/HCPCS: 99283; A9270-GY

== ENCOUNTER 2023-12-31 22:36 | Emergency (ER) | payer MEDICARE, MEDICAID ==
[2023-12-31 23:57] VITALS: BP 140/77; PULSE 79
== END 2023-12-31 23:50 | disposition home or self-care (01) ==
LOC: FB.ED 22:36
DX: I88.9 Nonspecific lymphadenitis, unspecified (principal); K13.0 Diseases of lips; I10 Essential (primary) hypertension; K21.9 Gastro-esophageal reflux disease without esophagitis; E66.9 Obesity, unspecified; Z91.018 Allergy to other foods; Z88.1 Allergy status to other antibiotic agents; Z88.5 Allergy status to narcotic agent; Z79.899 Other long term (current) drug therapy; Z86.19 Personal history of other infectious and parasitic diseases; Z86.16 Personal history of COVID-19; Z68.31 Body mass index [BMI] 31.0-31.9, adult
CPT/HCPCS: 99283

== ENCOUNTER 2024-01-10 07:01 | Day surgery (SDC) | payer MEDICAID, MEDICARE ==
[~2024-01-10 07:01] MED LIST: Sodium Chloride 0.9% 10 ML Syringe FLUSH PRN
[2024-01-10] MEDS ORDERED: Propofol 200 MG/20 ML SDV IV ONE (07:02)
[2024-01-10] MEDS ORDERED: Midazolam 1 MG/ML 2 ML SDV IV ONE (07:02)
[2024-01-10] MEDS ORDERED: Lactated Ringers 1,000 ML IV ONE (07:02)
[2024-01-10] MEDS ORDERED: fentaNYL 100 MCG/2 ML SDV IV ONE (07:02)
[2024-01-10] MEDS: Lactated Ringers 1,000 ML IV SCH (07:40)
[2024-01-10 12:12] VITALS: BP 119/76; PULSE 58
== END 2024-01-10 10:43 | disposition home or self-care (01) ==
LOC: FB.SDS 07:01
PROVIDERS: ATTEND Surgery
DX: K29.50 Unspecified chronic gastritis without bleeding (principal); K31.7 Polyp of stomach and duodenum; J45.909 Unspecified asthma, uncomplicated; F31.9 Bipolar disorder, unspecified; F41.9 Anxiety disorder, unspecified; R63.4 Abnormal weight loss; K21.9 Gastro-esophageal reflux disease without esophagitis; F17.210 Nicotine dependence, cigarettes, uncomplicated; E11.9 Type 2 diabetes mellitus without complications; K52.9 Noninfective gastroenteritis and colitis, unspecified; K64.8 Other hemorrhoids; E78.00 Pure hypercholesterolemia, unspecified; I10 Essential (primary) hypertension; Z88.5 Allergy status to narcotic agent; Z79.899 Other long term (current) drug therapy
CPT/HCPCS: 00813; 43239; 45378; 82947; 88305; 88342; J2250; J2704; J3010; J7120

== ENCOUNTER 2024-04-18 22:34 | Emergency (ER) | payer MEDICARE, MEDICAID ==
[2024-04-18] MEDS ORDERED: predniSONE 20 MG Tab PO ONE (22:35)
[2024-04-18 23:11] VITALS: BP 116/69; PULSE 96
== END 2024-04-18 23:14 | disposition home or self-care (01) ==
LOC: FB.ED 22:34
DX: J20.9 Acute bronchitis, unspecified (principal); I10 Essential (primary) hypertension; K21.9 Gastro-esophageal reflux disease without esophagitis; E66.9 Obesity, unspecified; Z86.16 Personal history of COVID-19; Z68.28 Body mass index [BMI] 28.0-28.9, adult; Z79.899 Other long term (current) drug therapy; Z79.2 Long term (current) use of antibiotics; Z88.1 Allergy status to other antibiotic agents; Z91.048 Other nonmedicinal substance allergy status; Z88.5 Allergy status to narcotic agent
CPT/HCPCS: 99283; J7512

== ENCOUNTER 2024-04-27 06:43 | Emergency (ER) | payer MEDICARE, MEDICAID ==
[2024-04-27] MEDS: predniSONE 20 MG Tab PO ONE (07:32)
[2024-04-27] MEDS: Albuterol/Ipratropium 3.0-0.5 MG/3 ML Neb Soln NEB ONE (07:33)
[2024-04-27 08:08] VITALS: BP 115/77; PULSE 61
== END 2024-04-27 08:12 | disposition home or self-care (01) ==
LOC: FB.ED 06:43
DX: J42 Unspecified chronic bronchitis (principal); I10 Essential (primary) hypertension; K21.9 Gastro-esophageal reflux disease without esophagitis; E03.9 Hypothyroidism, unspecified; F17.200 Nicotine dependence, unspecified, uncomplicated; Z91.048 Other nonmedicinal substance allergy status; Z88.5 Allergy status to narcotic agent; Z88.8 Allergy status to other drugs, medicaments and biological substances; Z79.899 Other long term (current) drug therapy; Z79.84 Long term (current) use of oral hypoglycemic drugs
CPT/HCPCS: 99284; J7512; J7620

== ENCOUNTER 2024-06-12 23:33 | Emergency (ER) | payer MEDICAID, MEDICARE ==
[2024-06-13] MEDS ORDERED: Sodium Chloride 0.9% 10 ML Syringe FLUSH PRN (00:21)
[2024-06-13 00:35] LABS: BILIRUBIN,URINE NEGATIVE (NEGATIVE); GLUCOSE,URINE NORMAL (NORMAL); KETONES,URINE NEGATIVE (NEGATIVE); LEUKOCYTE ESTERASE,URINE NEGATIVE (NEGATIVE); NITRITE,URINE NEGATIVE (NEGATIVE); OCCULT BLOOD,URINE MODERATE (NEGATIVE); PROTEIN,URINE NEGATIVE (NEGATIVE); UROBILINOGEN,URINE NORMAL (NEGATIVE)
[2024-06-13 00:36] LABS: BASOPHILS ABSOLUTE AUTO 0.1 x10-3/uL (0.0-0.3); BASOPHILS PERCENT AUTO 0.8 % (0.3-3.8); EOSINOPHILS ABSOLUTE AUTO 0.3 x10-3/uL (0.0-0.6); EOSINOPHILS PERCENT AUTO 2.9 % (0.1-6.8); HEMATOCRIT 48.4 % (38.3-50.1); HEMOGLOBIN 16.9 g/dL (12.9-17.7); LYMPHOCYTES ABSOLUTE AUTO 3.6 x10-3/uL (0.5-4.5); LYMPHOCYTES PERCENT AUTO 37.4 % (15.8-45.3); MEAN CORPUSCULAR HEMOGLOBIN 31.5 pg (27.0-33.3); MEAN CORPUSCULAR HGB CONC 34.9 g/dL (28.7-35.3); MEAN CORPUSCULAR VOLUME 90.2 fL (80.8-98.7); MEAN PLATELET VOLUME 8.2 fL (6.7-11.0); MONOCYTES ABSOLUTE AUTO 0.8 x10-3/uL (0.0-1.2); MONOCYTES PERCENT AUTO 8.4 % (5.5-15.2); NEUTROPHILS ABSOLUTE AUTO 4.9 x10-3/uL (1.7-6.9); NEUTROPHILS PERCENT AUTO 50.5 % (40.3-71.8); PLATELET COUNT,PLT 262 x10(3)uL (117-477); RED BLOOD CELL COUNT 5.36 x10(6)uL (3.90-5.90); RED CELL DISTRIBUTION WIDTH 13.7 % (12.4-15.0); WHITE BLOOD CELL COUNT,WBC 9.7 x10-3/uL (3.2-10.1)
[2024-06-13] MEDS: Sodium Chloride 0.9% 1,000 ML IV ONE (00:37)
[2024-06-13 00:39] LABS: BLOOD UREA NITROGEN,BUN 19 mg/dL (7-18); CALCIUM 8.9 mg/dL (8.6-10.2); CARBON DIOXIDE,CO2 29 mmol/L (21-32); CHLORIDE,CL 97 mmol/L (100-110); EST CRCL DRUG DOSING (CG) 112.08 mL/min; ESTIMATED GFR 98 mL/min (>60); GLUCOSE RANDOM 116 mg/dL (80-116); POTASSIUM,K 3.6 mmol/L (3.5-5.3); SODIUM,NA 135 mmol/L (135-145)
[2024-06-13 00:45] LABS: APPEARANCE,URINE CLEAR (CLEAR); BACTERIA,URINE RARE (NS); COLOR,URINE YELLOW (YELLOW); RBC,URINE 0-5 (0-5); SQUAMOUS EPITHELIAL CELLS,UR RARE (NS,R,O); WBC,URINE 0-5 (0-5)
[2024-06-13 00:45] LABS: A/G RATIO 1.3; ALANINE AMINOTRANSFERASE,ALT 41 U/L (12-36); ALBUMIN 4.1 g/dL (3.5-5.2); ALKALINE PHOSPHATASE 74 IU/L (56-112); ASPARTATE AMNIOTRANSFERASE,AST 28 IU/L (5-25); BILIRUBIN TOTAL 0.6 mg/dL (0.1-1.3); MAGNESIUM 1.7 mg/dL (1.8-2.5); PROTEIN TOTAL,TP 7.3 g/dL (6.0-8.0)
[2024-06-13 03:10] VITALS: BP 103/58; PULSE 63
== END 2024-06-13 03:10 | disposition home or self-care (01) ==
LOC: FB.ED 23:33
DX: M54.6 Pain in thoracic spine (principal); K59.00 Constipation, unspecified; E86.0 Dehydration; T67.9XXA Effect of heat and light, unspecified, initial encounter; I10 Essential (primary) hypertension; K21.9 Gastro-esophageal reflux disease without esophagitis; E66.9 Obesity, unspecified; F17.210 Nicotine dependence, cigarettes, uncomplicated; Z79.899 Other long term (current) drug therapy; Z79.84 Long term (current) use of oral hypoglycemic drugs; Z88.1 Allergy status to other antibiotic agents; Z88.5 Allergy status to narcotic agent; Z88.8 Allergy status to other drugs, medicaments and biological substances; Z68.26 Body mass index [BMI] 26.0-26.9, adult
CPT/HCPCS: 36415; 74176; 80053; 81001; 83735; 85025; 96360; 96361; 99285-25; J7030

== ENCOUNTER 2024-06-22 07:14 | Emergency (ER) | payer MEDICARE ==
[2024-06-22 07:38] VITALS: BP 125/89; PULSE 66
[2024-06-22] MEDS: Ketorolac 30 MG/ML SDV IM ONE (08:13)
[2024-06-22] MEDS: lamoTRIgine 100 MG Tab PO SCH (08:18)
== END 2024-06-22 08:28 | disposition home or self-care (01) ==
LOC: FB.ED 07:14
DX: G44.209 Tension-type headache, unspecified, not intractable (principal); G43.009 Migraine without aura, not intractable, without status migrainosus; F41.9 Anxiety disorder, unspecified; I10 Essential (primary) hypertension; K21.9 Gastro-esophageal reflux disease without esophagitis; E03.9 Hypothyroidism, unspecified; E66.9 Obesity, unspecified; Z79.84 Long term (current) use of oral hypoglycemic drugs; Z79.899 Other long term (current) drug therapy; Z91.048 Other nonmedicinal substance allergy status; Z88.8 Allergy status to other drugs, medicaments and biological substances; Z68.37 Body mass index [BMI] 37.0-37.9, adult
CPT/HCPCS: 96372; 99283; A9270-GY; J1885

== ENCOUNTER 2024-06-23 07:22 | Emergency (ER) | payer MEDICARE ==
[2024-06-23] MEDS: Haloperidol Lactate 5 MG/ML SDV IM ONE (08:02)
[2024-06-23] MEDS: SUMAtriptan 6 MG/0.5 ML SDV SUBCUT ONE (08:59)
[2024-06-23 09:57] VITALS: BP 140/72; PULSE 75
== END 2024-06-23 09:56 | disposition home or self-care (01) ==
LOC: FB.ED 07:22
DX: G43.109 Migraine with aura, not intractable, without status migrainosus (principal); I10 Essential (primary) hypertension; J45.909 Unspecified asthma, uncomplicated; K21.9 Gastro-esophageal reflux disease without esophagitis; E03.9 Hypothyroidism, unspecified; E66.9 Obesity, unspecified; F17.210 Nicotine dependence, cigarettes, uncomplicated; Z79.899 Other long term (current) drug therapy; Z91.018 Allergy to other foods; Z88.1 Allergy status to other antibiotic agents; Z88.5 Allergy status to narcotic agent; Z91.198 Patient's noncompliance with other medical treatment and regimen for other reason
CPT/HCPCS: 96372; 99283; J1630; J3030

== ENCOUNTER 2024-08-15 03:24 | Emergency (ER) | payer MEDICARE ==
[2024-08-15 03:37] VITALS: BP 150/101; PULSE 80
== END 2024-08-15 04:20 | disposition home or self-care (01) ==
LOC: FB.ED 03:24
DX: S05.01XA Injury of conjunctiva and corneal abrasion without foreign body, right eye, initial encounter (principal); I10 Essential (primary) hypertension; J45.909 Unspecified asthma, uncomplicated; K21.9 Gastro-esophageal reflux disease without esophagitis; E66.9 Obesity, unspecified; E03.9 Hypothyroidism, unspecified; Z91.048 Other nonmedicinal substance allergy status; Z88.8 Allergy status to other drugs, medicaments and biological substances; Z79.84 Long term (current) use of oral hypoglycemic drugs; Z79.899 Other long term (current) drug therapy; X58.XXXA Exposure to other specified factors, initial encounter
CPT/HCPCS: 99283

== ENCOUNTER 2024-08-31 06:33 | Emergency (ER) | payer MEDICAID, MEDICARE ==
[2024-08-31 08:16] VITALS: BP 124/88; PULSE 86
== END 2024-08-31 08:16 | disposition home or self-care (01) ==
LOC: FB.ED 06:33
DX: J40 Bronchitis, not specified as acute or chronic (principal); Z72.0 Tobacco use; I10 Essential (primary) hypertension; K21.9 Gastro-esophageal reflux disease without esophagitis; E03.9 Hypothyroidism, unspecified; E66.9 Obesity, unspecified; Z88.1 Allergy status to other antibiotic agents; Z88.8 Allergy status to other drugs, medicaments and biological substances; Z91.048 Other nonmedicinal substance allergy status; Z79.52 Long term (current) use of systemic steroids; Z79.84 Long term (current) use of oral hypoglycemic drugs; Z79.2 Long term (current) use of antibiotics; Z79.899 Other long term (current) drug therapy
CPT/HCPCS: 99283

== ENCOUNTER 2024-12-19 18:13 | Emergency (ER) | payer MEDICARE, MEDICAID ==
[2024-12-19 18:28] VITALS: BP 124/80; PULSE 73
== END 2024-12-19 19:21 | disposition home or self-care (01) ==
LOC: FB.ED 18:13
DX: M79.2 Neuralgia and neuritis, unspecified (principal); I10 Essential (primary) hypertension; K21.9 Gastro-esophageal reflux disease without esophagitis; E66.9 Obesity, unspecified; F17.210 Nicotine dependence, cigarettes, uncomplicated; Z79.84 Long term (current) use of oral hypoglycemic drugs; Z79.899 Other long term (current) drug therapy; Z91.09 Other allergy status, other than to drugs and biological substances; Z88.5 Allergy status to narcotic agent; Z88.1 Allergy status to other antibiotic agents
CPT/HCPCS: 99283

== ENCOUNTER 2025-01-20 21:50 | Emergency (ER) | payer MEDICARE, MEDICAID ==
[2025-01-20 22:14] VITALS: BP 104/74; PULSE 90
[2025-01-20] MEDS: Ketorolac 30 MG/ML SDV IM ONE (22:36)
== END 2025-01-20 22:55 | disposition home or self-care (01) ==
LOC: FB.ED 21:50
DX: G44.209 Tension-type headache, unspecified, not intractable (principal); I10 Essential (primary) hypertension; J45.909 Unspecified asthma, uncomplicated; K21.9 Gastro-esophageal reflux disease without esophagitis; E66.9 Obesity, unspecified; Z91.048 Other nonmedicinal substance allergy status; Z88.8 Allergy status to other drugs, medicaments and biological substances; Z79.899 Other long term (current) drug therapy
CPT/HCPCS: 96372; 99283; J1885

== ENCOUNTER 2025-01-28 03:49 | Emergency (ER) | payer MEDICARE, MEDICAID ==
[2025-01-28 04:02] VITALS: BP 114/95; PULSE 75
== END 2025-01-28 04:33 | disposition home or self-care (01) ==
LOC: FB.ED 03:49
DX: R09.81 Nasal congestion (principal); I10 Essential (primary) hypertension; E66.9 Obesity, unspecified; J45.909 Unspecified asthma, uncomplicated; Z91.048 Other nonmedicinal substance allergy status; Z88.8 Allergy status to other drugs, medicaments and biological substances; Z79.899 Other long term (current) drug therapy; Z68.33 Body mass index [BMI] 33.0-33.9, adult
CPT/HCPCS: 99283

== ENCOUNTER 2025-02-04 04:15 | Emergency (ER) | payer MEDICARE, MEDICAID ==
[2025-02-04] MEDS: Ibuprofen 800 MG Tab PO ONE (05:31)
[2025-02-04 06:18] VITALS: BP 126/76; PULSE 75
== END 2025-02-04 06:19 | disposition home or self-care (01) ==
LOC: FB.ED 04:15
DX: S92.201A Fracture of unspecified tarsal bone(s) of right foot, initial encounter for closed fracture (principal); E66.9 Obesity, unspecified; I10 Essential (primary) hypertension; K21.9 Gastro-esophageal reflux disease without esophagitis; J45.909 Unspecified asthma, uncomplicated; Z91.048 Other nonmedicinal substance allergy status; Z88.8 Allergy status to other drugs, medicaments and biological substances; Z79.899 Other long term (current) drug therapy; X50.1XXA Overexertion from prolonged static or awkward postures, initial encounter
CPT/HCPCS: 73630-RT; 99283; A9270-GY